=== PATIENT | male | born 1975 | race Caucasian/White ===

== ENCOUNTER 2020-08-06 19:44 | Emergency (ER) | payer OTHER ==
[~2020-08-06] VITALS: Ht 193 cm; Wt 90.7 kg
[~2020-08-06 19:44] MED LIST: OXYACE5T PO; PENVK500 PO; RXOXYACE PO; RXTRAM50 PO; TRAM50 PO
[2020-08-06] MEDS ORDERED: SULTRIDS PO (21:45)
[2020-08-06] MEDS ORDERED: CEPH500 PO (21:45)
[2020-11-15] MEDS ORDERED: IBU600 MG PO (01:49)
== END 2020-08-06 22:00 | disposition home or self-care (01) ==
LOC: ER 19:44
DX: L02.413 Cutaneous abscess of right upper limb (principal); L03.113 Cellulitis of right upper limb; F15.90 Other stimulant use, unspecified, uncomplicated; F17.200 Nicotine dependence, unspecified, uncomplicated
CPT/HCPCS: 10060; 99283-25; A9270

== ENCOUNTER 2021-08-22 15:02 | Emergency (ER) | payer OTHER ==
[~2021-08-22] VITALS: Ht 177.8 cm; Wt 68.0 kg
[~2021-08-22 15:02] MED LIST changes: +CEPH500 PO; +IBU600 MG PO; +SULTRIDS PO
== END 2021-08-22 17:46 | disposition home or self-care (01) ==
LOC: ER 15:02
DX: S01.111A Laceration without foreign body of right eyelid and periocular area, initial encounter (principal); S09.90XA Unspecified injury of head, initial encounter; F15.121 Other stimulant abuse with intoxication delirium; F11.90 Opioid use, unspecified, uncomplicated; F17.200 Nicotine dependence, unspecified, uncomplicated; X58.XXXA Exposure to other specified factors, initial encounter
CPT/HCPCS: 12011; 70450; 99284-25; A9270

== ENCOUNTER 2021-09-04 20:12 | Inpatient (IN) | payer OTHER ==
[~2021-09-04] VITALS: Ht 190.5 cm; Wt 79.2 kg
[2021-09-04 23:48] LABS: BASOPHILS ABSOLUTE AUTO 0.09 K/mm3 (0.00-0.23); BASOPHILS PERCENT AUTO 1 % (0-2); EOSINOPHILS ABSOLUTE AUTO 0.31 K/mm3 (0.00-0.68); EOSINOPHILS PERCENT AUTO 3 % (0-6); Hematocrit 37.6 % (37.0-53.0); IMMATURE GRAN ABSOLUTE AUTO 0.02 K/mm3 (0.00-0.10); IMMATURE GRAN PERCENT AUTO 0 % (0-1); LYMPHOCYTES ABSOLUTE AUTO 3.13 K/mm3 (0.84-5.20); LYMPHOCYTES PERCENT AUTO 30 % (21-46); MONOCYTES ABSOLUTE AUTO 1.56 K/mm3 (0.16-1.47); MONOCYTES PERCENT AUTO 15 % (4-13); Mean Corpuscular HGB 28.9 pg (26.0-34.0); Mean Corpuscular HGB Conc 31.9 g/dL (31.5-36.5); Mean Corpuscular Volume 91 fL (80-100); Mean Platelet Volume 10.9 fL (9.1-12.4); NEUTROPHILS ABSOLUTE AUTO 5.19 K/mm3 (1.96-9.15); NEUTROPHILS PERCENT AUTO 50 % (41-73); Platelet Count 356 K/mm3 (150-400); Red Blood Cell Count 4.15 M/mm3 (4.30-5.90)
[2021-09-04 23:58] LABS: Alanine Aminotransfer (ALT/SGP 46 U/L (12-78); Albumin, Blood 3.5 g/dL (3.4-5.0); Albumin/Globulin Ratio 0.8 (0.8-1.8); Alk Phos 81 U/L (50-136); Anion Gap 5 mmol/L (6-16); Aspartate Aminotrans (AST/SGOT 47 U/L (12-37); Bilirubin, Total 0.2 mg/dL (0.1-1.0); Blood Urea Nitrogen 17 mg/dL (8-24); CO2, Blood 30 mmol/L (21-32); Calcium, Blood 8.9 mg/dL (8.5-10.1); Chloride, Blood 103 mmol/L (98-108); Creatinine, Blood 0.68 mg/dL (0.60-1.20); Globulin, Blood 4.5 g/dL (2.2-4.0); Glomerular Filtration Rate >60 (60-); Glucose, Blood 101 mg/dL (70-99); Potassium, Blood 4.3 mmol/L (3.5-5.5); Sodium, Blood 138 mmol/L (136-145)
--- NOTE | 2021-09-05 02:51 | NUR ---
ADMIT NOTE 0154 PT ARRIVED TO THE FLOOR VIA WHEELCHAIR, TRANSFERS INDEPENDENTLY, AOX4, PLEASEANT AND COOPERATIVE WITH ADDMISSION ASSESSMENT. PT REPORTS HX OF DAILY ETOH, AND POLYSUBSTANCE USE. NOSE WOUND DRAINING PURULENT, FOUL SMELLING DRAINAGE. ORIENTED TO ROOM AND CALL LIGHT, VSS. WILL CONTINUE TO MONITOR.
--- NOTE | 2021-09-05 03:58 | NUR ---
AT BEDSIDE DURING BI ARCHITECT ASSESSMENT. AGREE W/DOCUMENTED ASSESSMENT.
--- NOTE | 2021-09-05 04:38 | NUR ---
SHIFT SUMMARY, PT ARRIVED TO FLOOR 0154, HAS BEEN NPO SINCE ARRIVAL. IV IN R FOREARM, PATENT INFUSING IV FLUIDS AND ABX PER ORDERS. GLEN SANTANA, SARAH PEREIRA CONSULT THIS AM. VSS, CALL LIGHT IN REACH. WILL CONTINUE TO MONITOR.
--- NOTE | 2021-09-05 07:25 | NUR ---
PT VSS SINCE ARRVING TO FLOOR. NOSE DRNG PURULANT DRNG. PT DENIED PAIN. IVF AND ABX COTN PER ORDERS. PT NPO PENDING ENT CONSULT.
--- NOTE | 2021-09-05 08:19 | NUR ---
DR. PEREIRA CAME INTO THE ROOM AND CONFIRMED THAT THE PATIENT WILL BE GOING IN FOR SURGERY AT SOME POINT TODAY. PATIENT IS LAYING IN BED WITH CALL LIGHT WITHIN REACH. AWAITING TO HEAR BACK FROM OR TO SEE WHEN PATIENT WILL HAVE SURGERY.
[2021-09-05 12:57] LABS: Influenza A, PCR NEGATIVE (NEGATIVE); Influenza B, PCR NEGATIVE (NEGATIVE); Resp Syncytial Virus, PCR NEGATIVE (NEGATIVE); SARS-Cov-2 (COVID-19) PCR, MMC NEGATIVE (NEGATIVE)
--- NOTE | 2021-09-05 14:03 | NUR ---
09/05/21 1403 Alfonzo Ibrahim PATIENT ON SCHEDULED ANTIBIOTICS
--- NOTE | 2021-09-05 15:41 | NUR ---
SHIFT SUMMARY: PATIENT CAME BACK FROM PACU TODAY AT 1530. PATIENT IS ALERT AND ORIENTED X4. VS ARE WNL AND IS ON RA. PATIENT REPORTS PAIN 10/10 AND WAS GIVEN 50 MCG IV FENT. PATIENT REPORTS PAIN TO BE "A LITTLE BIT BETTER". PATIENTS NOSE AND EYES ARE SWOLLEN WITH SMALL AMOUNT OF BLOOD COMING OUT OF HIS NARES. PATIENT DENIES ISSUES BREATHING THROUGH NOSE BECAUSE IT REMINDS HIM OF "WHEN YOU DO COCAINE AND YOUR NOSE ON THE INSIDE FEELS RAW". PATIENT IS TOLERATING PO INTAKE AND IS BURPING FREQUENTLY. IV FLUIDS AND ABX RUNNING. CALL LIGHT WITHIN REACH. THE PLAN IS TO HAVE IV ABX FOR A COUPLE OF DAYS AND THEN TO POSSIBLY DISCHARGE HOME.
--- NOTE | 2021-09-05 16:50 | NUR ---
SHIFT SUMMARY - POD 0 FOR I&D OF NASAL ABSCESS PT A0X4. NASAL AREA STILL SWOLLEN, SCABBED AREA OVER BRIDGE OF NOSE, SMALL AMONUT OF BLOOD FROM NARES. MEDICATING FOR PAIN PER EMAR. ABLE TO AMBULATE INDEPENDENTLY. REGULAR DIET, TOLERATING PO INTAKE. CALL LIGHT WITHIN REACH. PLAN IS TO CONTINUE TO ANTIBIOTIC TREATMENT FOR ANOTHER DAY OR TWO AND DISCHARGE HOME.
[2021-09-05 23:58] LABS: Vancomycin, Trough 9.4 ug/mL (5.0-10.0)
--- NOTE | 2021-09-06 04:30 | NUR ---
SHIFT SUMMARY NO ACUTE CHANGES TO REPORT THIS SHIFT. POD O I&D OF NASAL ABCESS, PT HAS HAD MODERATE PAIN. MEDICATED PER EMAR WITH EFFECT. PT HAS SLEPT OFF AND ON T/O THE SHIFT, HE REQUESTS FREQUENT SNACKS FROM THE PANTRY. POST OP VITALS ARE STABLE. PT INDEPENDENT WITH URINAL AT THE BEDSIDE. COOPERATIVE WITH CARE AND CALLS APPROPRIATELY. IV ANTIBIOTICS PER ORDERS. BED IN LOWEST POSITION, CALL LIGHT WITHIN REACH.
--- NOTE | 2021-09-06 05:56 | NUR ---
SPLINT TO LEFT NARE AROUND 0540 PT BEGAN YELLING OUT IN PAIN, STATING THAT HE FELT LIKE HE HAD SOMETHING STUCK IN HIS NOSE. HE WAS MOANING AND VIOLENTLY BLOWING HIS NOSE. I INSTRUCTED PT NOT TO BLOW AND TOLD HIM THAT WOULD MAKE SITUATION WORSE. I ASSESSED PT LEFT NARE TO SEE SPLINT HAD MOVED FOWARD TO WHERE IT WAS QUITE VISIBLE. NO BLEEDING PRESENT. PRIOR TO TO THIS EPISODE PT WAS SNEEZING VIGOROUSLY IN HIS ROOM, WHICH MAY HAVE MOVED SPINT FOWARD. PT MEDICATED FOR PAIN AND ANXIETY. CALLED AND LEFT MESSAGE WITH DR. PEREIRA'S ANSWERING SERVICE TO NOTIFY HIM OF INCIDENT. DR. PEREIRA HAS CALLED BACK AND STATES THAT HE HAS A SURGERY HERE AT THE HOSPITAL TODAY AND THAT HE WILL ROUND ON PT LATER THIS AM. HE GAVE NO FURTHER INSTRUCTION AND STATES TO LEAVE SPLINT IS FOR NOW.
--- NOTE | 2021-09-06 06:16 | NUR ---
PRIMARY RN REPORTS THAT SPLINTS IN PT'S NOSE HAVE SHIFTED DOWN AND ARE MORE VISIBLE NOW. DR PEREIRA CONTACTED, NOTIFIED OF VISIBLE SPLINTS. DR PLANS TO ROUND THIS AM, NO NEW ORDERS AT THIS TIME. PRIMARY RN UPDATED.
--- NOTE | 2021-09-06 16:55 | NUR ---
SHIFT SUMMARY - POD 1 FOR I&D OF NASAL ABSCESS PT IS A0X4. NASAL/EYE AREA STILL SWOLLEN. MEDICATING FOR PAIN PER EMAR. USING THE BEDSIDE URINAL, BUT ABLE TO AMBULATE INDEPENDENTLY. TOLERATING PO INTAKE, ASKS FOR DOUBLE TRAY PORTIONS AND FREQUENT SNACKS. USES CALL LIGHT APPROPRIATELY, CALL LIGHT WITHIN REACH. PLAN IS TO CONTINUE ANTIBIOTICS FOR ANOTHER DAY AND THEN POSSIBLY DISCHARGE HOME.
--- NOTE | 2021-09-06 18:06 | NUR ---
SHIFT SUMMMARY: POD 1 I&D OF NOSE NO SIGNIFICANT CHANGES. PAIN IS MANAGED WITH IV FENT, TORADOL, AND ATIVAN. PATIENT IS TOLERATING PO INTAKE AND IS VOIDING. HE DID HAVE A SMALL BM YESTERDAY. PATIENT USES URNAL AT BEDSIDE. PATIENT IS STILL RECIEVING IV ABX BUT IS SALINE LOCKED AFTER FLUSHING. CALLS APPROPRIATELY. CALL LIGHT WITHIN REACH. PATIENTS NOSE HAS SPLINTS INSIDE AND HAS SMALL AMOUNT OF BLOODY DRAINAGE COMING OUT INTERMITTENTLY. HE IS ABLE TO BREATHE THROUGH HIS NOSE WITH NO ISSUE. PATIENT CAN BECOME ANXIOUS AT TIMES WHEN HIS PAIN IS TOO HIGH AND WILL INTERMITTENTLY BURST WITH MOANS AND YELLING. PATIENT IS CALMED DOWN WITH IV PAIN MEDS AND/OR FOOD. THE PLAN IS TO CONTINUE IV ABX AND PAIN MANAGEMENT.
--- NOTE | 2021-09-06 20:38 | NUR ---
REFUSING CARE PT REFUSED TO HAVE HIS HS BLOOD SUGAR TAKEN. PT IS OCCASIONALLY INCONTINENT, HE STATES THAT HE IS DRY AND DOES NOT NEED TO BE CHANGED AT THIS TIME.
[2021-09-06 23:57] LABS: Vancomycin, Trough 11.3 ug/mL (5.0-10.0)
--- NOTE | 2021-09-07 04:17 | NUR ---
SHIFT SUMMARY PT HAS DONE MUCH BETTER OVERNIGHT, PAIN IS ALOT MORE CONTROLLED AND PT HAS SLEPT MOST OF THE NIGHT. SPINT TO BOTH NARES INTACT WITHOUT CHANGES OVERNIGHT. IV ANTIBIOTICS INFUSED ORDERED. PT PLESANT AND COOPERATIVE WITH CARE. BED IN LOWEST POSITION, CALL LIGHT WITHIN REACH/
[2021-09-07 04:47] LABS: BASOPHILS ABSOLUTE AUTO 0.02 K/mm3 (0.00-0.23); BASOPHILS PERCENT AUTO 0 % (0-2); EOSINOPHILS PERCENT AUTO 0 % (0-6); Hematocrit 37.3 % (37.0-53.0); IMMATURE GRAN ABSOLUTE AUTO 0.05 K/mm3 (0.00-0.10); IMMATURE GRAN PERCENT AUTO 0 % (0-1); LYMPHOCYTES ABSOLUTE AUTO 1.41 K/mm3 (0.84-5.20); LYMPHOCYTES PERCENT AUTO 11 % (21-46); MONOCYTES ABSOLUTE AUTO 0.49 K/mm3 (0.16-1.47); MONOCYTES PERCENT AUTO 4 % (4-13); Mean Corpuscular HGB 28.6 pg (26.0-34.0); Mean Corpuscular HGB Conc 32.2 g/dL (31.5-36.5); Mean Corpuscular Volume 89 fL (80-100); Mean Platelet Volume 10.2 fL (9.1-12.4); NEUTROPHILS ABSOLUTE AUTO 11.09 K/mm3 (1.96-9.15); NEUTROPHILS PERCENT AUTO 85 % (41-73); Platelet Count 384 K/mm3 (150-400); RDW Coefficient Variation 12.7 % (11.7-14.2); RDW Standard Deviation 41.5 fL (35.1-46.3); Red Blood Cell Count 4.19 M/mm3 (4.30-5.90); White Blood Cell Count 13.06 K/mm3 (4.00-11.30)
[2021-09-07 05:14] LABS: Anion Gap 8 mmol/L (6-16); Blood Urea Nitrogen 19 mg/dL (8-24); Bun/Creatinine Ratio 26.3 (12.0-20.0); CO2, Blood 25 mmol/L (21-32); Calcium, Blood 8.8 mg/dL (8.5-10.1); Chloride, Blood 105 mmol/L (98-108); Creatinine, Blood 0.72 mg/dL (0.60-1.20); Glomerular Filtration Rate >60 (60-); Glucose, Blood 149 mg/dL (70-99); Potassium, Blood 4.2 mmol/L (3.5-5.5); Sodium, Blood 138 mmol/L (136-145)
[2021-09-07] MEDS ORDERED: AMOCLA875 PO (15:59)
[2021-09-07] MEDS ORDERED: Acetaminophen650 M1 PO (15:59)
--- NOTE | 2021-09-07 16:00 | NUR ---
DR PEREIRA IN TO ROOM TO REMOVE NASAL SPLINTS. PT WILL DC WITHOUT THEM. PT WILL FU WITH DR PEREIRA IN 1 WEEK.
[2021-09-07] MEDS ORDERED: ACIDOPHILUS1 EAC3 PO (16:01)
[2021-09-07] MEDS ORDERED: NASAL SPRAY88 ML (16:01)
--- NOTE | 2021-09-07 16:55 | NUR ---
DISCHARGE SUMMARY PT A&OX4, VSS/RA, JUANJO PO, VOIDING WELL/BMS TODAY, AMB INDEPENDENTLY IN ROOM, PAIN MANAGED. DC INS PROVIDED. PT REP UNDERSTANDING THOSE INSTRUCTIONS INCLUDING FU APPT WITH DR PEREIRA, AND TO POWER SAW OPERATOR ABX/OTHER SCRIPTS AT [facility] [place]. IV DC'D. I WALKED OUT WITH PT TO MEET HIS SISTERS AT THE FRONT ENTRANCE.
== END 2021-09-07 16:39 | disposition home or self-care (01) | DRG 156 ==
LOC: ER 20:12 → SURS 09-05 00:13 → MEDS 09-05 00:13 → SURS 09-05 02:32
PROVIDERS: Internal Medicine; Otolaryngology; Physician Assistant; ADMIT Internal Medicine
PROC: 099M0ZZ Drainage of Nasal Septum, Open Approach (ICD-10-PCS; principal; 2021-09-05 13:30)
DX: J34.0 Abscess, furuncle and carbuncle of nose (principal); F10.10 Alcohol abuse, uncomplicated; F15.10 Other stimulant abuse, uncomplicated; F17.210 Nicotine dependence, cigarettes, uncomplicated; S02.2XXA Fracture of nasal bones, initial encounter for closed fracture; D64.9 Anemia, unspecified; Z20.822 Contact with and (suspected) exposure to COVID-19; Z98.890 Other specified postprocedural states; W22.8XXA Striking against or struck by other objects, initial encounter
CPT/HCPCS: 0241U; 36415; 70487; 80048; 80053; 80202; 85025; 87040; 93306; 99284-25; A9270; J0171; J0295; J0330; J1100; J1885; J2060; J2250; J2405; J2543; J2704; J3010; J3370; J7030; J7040; J7050; J7060; J7120; Q9967

== ENCOUNTER 2022-05-04 13:29 | Inpatient (IN) | payer OTHER ==
[~2022-05-04] VITALS: Ht 193 cm; Wt 69.2 kg
[~2022-05-04 13:29] MED LIST changes: +ACIDOPHILUS1 EAC3 PO; +AMOCLA875 PO; +Acetaminophen650 M1 PO; +NASAL SPRAY88 ML
[2022-05-04 15:11] LABS: Hematocrit 37.1 % (37.0-53.0); Hemoglobin 13.6 g/dL (13.5-17.5); Mean Corpuscular HGB 29.4 pg (26.0-34.0); Mean Corpuscular HGB Conc 36.7 g/dL (31.5-36.5); Mean Corpuscular Volume 80 fL (80-100); Mean Platelet Volume 10.9 fL (9.1-12.4); Platelet Count 354 K/mm3 (150-400); RDW Coefficient Variation 12.5 % (11.7-14.2); RDW Standard Deviation 35.8 fL (35.1-46.3); Red Blood Cell Count 4.63 M/mm3 (4.30-5.90); White Blood Cell Count 25.24 K/mm3 (4.00-11.30)
[2022-05-04 15:49] LABS: BAND PERCENT MAN 19 % (0-8); BASOPHILS PERCENT MAN 0 % (0-2); EOSINOPHILS PERCENT MAN 0 % (0-6); LYMPHOCYTES % ATYPICAL MANUAL 1 % (0-0); LYMPHOCYTES PERCENT MAN 3 % (21-46); MONOCYTES ABSOLUTE MAN 1.26 K/mm3 (0.16-1.47); MONOCYTES PERCENT MAN 5 % (4-13); NEUTROPHILS ABSOLUTE MAN 22.96 K/mm3 (1.96-9.15); SEG NEUTROPHILS PERCENT MAN 72 % (41-73); TOTAL CELLS COUNTED 100
[2022-05-04 15:51] LABS: Albumin/Globulin Ratio 0.5 (0.8-1.8); Bilirubin, Total 0.9 mg/dL (0.1-1.0); Creatinine, Blood 2.12 mg/dL (0.60-1.20); Globulin, Blood 5.9 g/dL (2.2-4.0); Potassium, Blood 5.2 mmol/L (3.5-5.5); Total Protein, Blood 8.9 g/dL (6.4-8.2)
--- NOTE | 2022-05-04 18:18 | NUR ---
PT ARRIVED TO PCU AT 1820 VIA GURNEY. PT SLID FROM [facility] TO PCU BED VIA SLIDE SHEET AND 3 STAFF MEMBERS. PT SLEEPING UPON ARRIVAL AND ONLY ABLE TO AWAKEN BRIEFLY WHEN ASKED QUESTIONIS. PT ON RA UPON ARRIVAL.
[2022-05-04 20:59] LABS: Bun/Creatinine Ratio 56.1 (12.0-20.0); Calcium, Blood 8.3 mg/dL (8.5-10.1); Creatinine, Blood 1.96 mg/dL (0.60-1.20); Potassium, Blood 5.1 mmol/L (3.5-5.5)
[2022-05-05 01:02] LABS: Bun/Creatinine Ratio 65.8 (12.0-20.0); Calcium, Blood 8.6 mg/dL (8.5-10.1); Creatinine, Blood 1.58 mg/dL (0.60-1.20); Potassium, Blood 4.5 mmol/L (3.5-5.5)
[2022-05-05 04:50] LABS: BASOPHILS ABSOLUTE AUTO 0.05 K/mm3 (0.00-0.23); BASOPHILS PERCENT AUTO 0 % (0-2); EOSINOPHILS ABSOLUTE AUTO 0.02 K/mm3 (0.00-0.68); EOSINOPHILS PERCENT AUTO 0 % (0-6); Hematocrit 35.9 % (37.0-53.0); Hemoglobin 13.1 g/dL (13.5-17.5); IMMATURE GRAN ABSOLUTE AUTO 0.12 K/mm3 (0.00-0.10); IMMATURE GRAN PERCENT AUTO 1 % (0-1); LYMPHOCYTES ABSOLUTE AUTO 0.97 K/mm3 (0.84-5.20); LYMPHOCYTES PERCENT AUTO 5 % (21-46); MONOCYTES ABSOLUTE AUTO 1.19 K/mm3 (0.16-1.47); MONOCYTES PERCENT AUTO 6 % (4-13); Mean Corpuscular HGB 29.4 pg (26.0-34.0); Mean Corpuscular HGB Conc 36.5 g/dL (31.5-36.5); Mean Corpuscular Volume 81 fL (80-100); Mean Platelet Volume 10.8 fL (9.1-12.4); NEUTROPHILS ABSOLUTE AUTO 16.45 K/mm3 (1.96-9.15); NEUTROPHILS PERCENT AUTO 88 % (41-73); Platelet Count 299 K/mm3 (150-400); RDW Coefficient Variation 12.6 % (11.7-14.2); RDW Standard Deviation 36.5 fL (35.1-46.3); Red Blood Cell Count 4.46 M/mm3 (4.30-5.90)
--- NOTE | 2022-05-05 06:09 | NUR ---
SHIFT SUMMARY PATIENT WAKES TO VERBAL STIMULI BUT QUICKLY FALLS ASLEEP AFTER OPENING EYES. PATIENT SLEPT ENTIRE NIGHT, WAKING ONLY TO USE URINAL. VSS, PATIENT REMAINS ON RA WITH O2 SAT >90%. PATIENT TURNS SELF IN BED INDEPDENTLY. NS INFUSING PER EMAR. NO OTHER CHANGES, WILL REPORT TO DAY SHIFT RN.
[2022-05-05 07:03] LABS: Albumin, Blood 2.6 g/dL (3.4-5.0); Albumin/Globulin Ratio 0.5 (0.8-1.8); Bun/Creatinine Ratio 76.2 (12.0-20.0); Calcium, Blood 8.6 mg/dL (8.5-10.1); Creatinine, Blood 1.26 mg/dL (0.60-1.20); Globulin, Blood 5.4 g/dL (2.2-4.0); Magnesium, Blood 3.1 mg/dL (1.6-2.4); Potassium, Blood 4.3 mmol/L (3.5-5.5)
[2022-05-05 09:55] LABS: Bun/Creatinine Ratio 80.6 (12.0-20.0); Calcium, Blood 8.7 mg/dL (8.5-10.1); Creatinine, Blood 1.03 mg/dL (0.60-1.20); Potassium, Blood 4.3 mmol/L (3.5-5.5)
--- NOTE | 2022-05-05 10:39 | NUR ---
UPDATE PT FELL ASLEEP DURING ULTRASOUND. MORNING MEDS HELD DUE TO PT SLEEPING DUE TO WITHDRAWALS. PT CURRENTLY SLEEPING. BED IN LOWEST POSITION. CALL LIGHT WITHIN REACH. URINAL AT BEDSIDE.
--- NOTE | 2022-05-05 11:49 | NUR ---
DURING MORNING VITALS, ROUGHLY 0745, PT WAS AWAKE AND ANSWERING SOME QUESTIONS. PT EMOTIONS VERY LABILE. PT APPEARED TO BECOME FRUSTRATED WITH RETAIL SALES DIRECTOR AND BUSINESS STRATEGY MANAGER OVER THE FACT THAT THE PT WAS NPO BUT WANTED FOOD. PT WAS INFORMED THAT HE WAS CURRENTLY NPO BUT THE RN WAS GOING TO CALL THE DR TO SEE IF A DIET COULD BE ORDERD. PT WAS MOANING AND YELLING OUT "I NEED WATER. MY MOUTH IS SO DRY." THIS RN BROUGHOUT PT A SMALL CUP OF WATER TO ASSESS PT SWALLOWING. PT INSTRUCTED TO TAKE SMALL SIPS. PT DID NOT FOLLOW INSTRUCTIONS AND DRANK ENTIRE CUP. PT SWALLOWING APPEARED TO BE GOOD AND NO COUGHING NOTICED. DR INFORMED ND DIET CHANGED TO REG DIET. PT AGAIN BECAME FRUSTRATED WITH BUSINESS STRATEGY MANAGER BECAUSE PT ASKED FOR SOMETHING TO DRINK AND BUSINESS STRATEGY MANAGER STATED THAT SHE WOULD ASK THE NURSE. PT BEGAN MOANING LOUDLY AND ASKED FOR HIS NURSE. THIS RN ENTERED ROOM, PT ASKED WHY HE COULD NOT HAVE ANYTHING TO DRINK. THIS RN INFORMED PT THAT HIS BEHAVIOR WAS NOT APPROPIATE AND THAT HE COULD NOT GET FRUSTRATED WITH STAFF BECAUSE HE IS NOT GETTING THINGS RIGHT AWAY. THIS RN INFORMED PT THAT BUSINESS STRATEGY MANAGER AND RETAIL SALES DIRECTOR WILL COME TO ME WITH REQUESTS AND THAT I I HAVE TO FOLLOW THE DR ORDERS. PT APPOLIGIZED AND AGREED TO NOT GET FRUSTRATED WITH STAFF.
[2022-05-05 13:11] LABS: Bun/Creatinine Ratio 74.4 (12.0-20.0); Calcium, Blood 8.4 mg/dL (8.5-10.1); Creatinine, Blood 0.93 mg/dL (0.60-1.20); Potassium, Blood 4.3 mmol/L (3.5-5.5)
--- NOTE | 2022-05-05 17:48 | NUR ---
SHIFT SUMMARY PT SLEPT MUTIPLE TIMES DURING SHIFT. WHEN PT WAS AWAKE, PT IS A/O. PT ABLE TO GIVE HIS NAME, , NAME OF FACILITY, AND NAME OF CITY. PT EMOTIONS ARE VERY LABILE WHEN AWAKE, BECOMES FRUSTRATED QUICKLY. PT CONSTANTLY REQUESTING FOOD AND DRINKS WHEN AWAKE. PT VSS THROUGHOUT SHIFT, O2 SATS NOT ALWAY OBTAINABLE. NO REPORT OF CHEST PAIN/PRESSURE THROUGHOUT SHIFT. NO REPORT OF SOB/DYSPNEA THROUGHOUT SHIFT. PT UNABLE TO SIT STILL FOR VERY LONG WHEN AWAKE. ATIVAN ORDERED Q4 FOR WITHDRAWL SYMPTOMS, 1 MG GIVEN THIS EVENING, SEE EMAR. PT USING URINAL WHILE IN BED. BED ALARM ON.
--- NOTE | 2022-05-05 18:15 | NUR ---
AT 1750, PT ASKED FOR PAIN MED. WHEN ASSESSED WHERE HIS PAIN WAS AND PAIN LEVEL, PT FLAILED HIS ARM ABOVE HEAD AND YELLED "I JUST NEED SOMETHING TO TAKE THE EDGE OFF." PT INFORMED THAT HE HAS TYLENOL FOR PAIN, PT RESPONDED "THAT WON'T WORK." PT BEGAN ROCKING IN HIS BED AND MOANING. PT INFORMED THAT ATIVAN MY HELP HIM RELAX A LITTLE. PT RESPOND "YES. YES PLEASE." ATIVAN GIVEN PER EMAR.
[2022-05-06 03:51] LABS: Hematocrit 36.1 % (37.0-53.0); Hemoglobin 12.5 g/dL (13.5-17.5); Mean Corpuscular HGB Conc 34.6 g/dL (31.5-36.5); Mean Corpuscular Volume 84 fL (80-100); Mean Platelet Volume 10.4 fL (9.1-12.4); Platelet Count 279 K/mm3 (150-400); RDW Standard Deviation 39.3 fL (35.1-46.3); Red Blood Cell Count 4.31 M/mm3 (4.30-5.90); White Blood Cell Count 15.25 K/mm3 (4.00-11.30)
[2022-05-06 04:09] LABS: Albumin, Blood 2.4 g/dL (3.4-5.0); Anion Gap 8 mmol/L (6-16); Blood Urea Nitrogen 51 mg/dL (8-24); Bun/Creatinine Ratio 59.8 (12.0-20.0); CO2, Blood 25 mmol/L (21-32); Calcium, Blood 8.7 mg/dL (8.5-10.1); Chloride, Blood 94 mmol/L (98-108); Creatinine, Blood 0.85 mg/dL (0.60-1.20); Glomerular Filtration Rate 109 (60-); Glucose, Blood 105 mg/dL (70-99); Phosphorus, Blood 1.8 mg/dL (2.5-4.9); Sodium, Blood 127 mmol/L (136-145)
--- NOTE | 2022-05-06 06:13 | NUR ---
SHIFT SUMMARY PATIENT WAKES EASILY TO VERBAL STIMULI, ANSWERS ORIENTATION QUESTIONS APPROPRIATLEY WHEN AWAKE. VSS, PATIENT REMAINS ON RA WITH O2 SAT >90%. MEDICATED PER EMAR FOR AGITATION AND ANXIETY RELATED TO WITHDRAWAL SYMPTOMS. PATIENT ABLE TO TURN SELF IN BED. USES URINAL IN BED INDEPENDENTLY WITH ADEQUATE OUTPUT. TOLERATING PO. NO OTHER CHANGES THIS SHIFT, WILL REPORT TO DAY SHIFT RN.
--- NOTE | 2022-05-06 17:19 | NUR ---
SHIFT SUMMARY PT HAS BEEN SLEEPING FOR A MAJORITY OF THE DAY. ON MULTIPLE INSTANCES, THE PT WOULD WAKE UP AND CRY OUT ONLY TO BE ASLEEP AGAIN WHEN THIS RN ARRIVED IN ROOM. PT STATED "I HURT ALL OVER" BUT WOULD NOT CLARIFY ON QUALITY, SPECIFIC LOCATION(S) OF PAIN, OR RATE PAIN 1-10. A TEMPERATURE OF 100.7 WAS MEASURED IN THE AFTERNOON WHICH WAS TREATED WITH ACETAMINOPHEN PER EMAR. PT DID DEMONSTRATE SIGNS OF ANXIETY DURING ENCOUNTERS WHILE AWAKE, THEY CONTINUALLY MADE COMMENTS SUCH "PLEASE DON'T KICK ME OUT. I HOPE THAT YOU'RE NOT MAKING ME LEAVE." ETC.
[2022-05-07 04:35] LABS: Hematocrit 36.3 % (37.0-53.0); Hemoglobin 12.5 g/dL (13.5-17.5); Mean Corpuscular HGB 29.2 pg (26.0-34.0); Mean Corpuscular HGB Conc 34.4 g/dL (31.5-36.5); Mean Corpuscular Volume 85 fL (80-100); Mean Platelet Volume 10.3 fL (9.1-12.4); Platelet Count 297 K/mm3 (150-400); RDW Coefficient Variation 13.2 % (11.7-14.2); RDW Standard Deviation 39.9 fL (35.1-46.3); Red Blood Cell Count 4.28 M/mm3 (4.30-5.90); White Blood Cell Count 16.25 K/mm3 (4.00-11.30)
[2022-05-07 04:51] LABS: Albumin, Blood 2.2 g/dL (3.4-5.0); Anion Gap 7 mmol/L (6-16); Blood Urea Nitrogen 21 mg/dL (8-24); CO2, Blood 25 mmol/L (21-32); Calcium, Blood 8.7 mg/dL (8.5-10.1); Chloride, Blood 96 mmol/L (98-108); Creatinine, Blood 0.58 mg/dL (0.60-1.20); Glomerular Filtration Rate 122 (60-); Glucose, Blood 105 mg/dL (70-99); Phosphorus, Blood 1.9 mg/dL (2.5-4.9); Potassium, Blood 4.9 mmol/L (3.5-5.5); Sodium, Blood 128 mmol/L (136-145)
--- NOTE | 2022-05-07 06:14 | NUR ---
SHIFT SUMMARY MEDICAL NO TELE STATUS PATIENT ALERT AND ORIENTED, ABLE TO MAKE NEEDS KNOWN TO STAFF, AGITATES EASILY. PATIENT TOLERATING PO, CONTINUES TO REQUEST FOOD/DRINKS AND GETS UPSET WITH STAFF, YELLING OUT AND USES INAPPROPRIATE LANGUAGE WHEN CERTAIN FOOD/DRINK ITEMS ARE NOT AVAILABLE. MEDICATED PER EMAR FOR WITHDRAWAL SYMPTOMS AND ANXIETY. VSS, PATIENT REMAINS ON RA T/O NIGHT WITH 02 SAT >90%. PATIENT USING URINAL IN BED INDEPENDENTLY. NO OTHER CHANGES THIS SHIFT, WILL REPORT TO DAY SHIFT RN.
[2022-05-07 11:45] LABS: Source, Urine Clean Catch
[2022-05-07 11:52] LABS: Bilirubin, Urine Neg (Neg); Blood, Urine 2+ (Neg); Glucose Qualitative, Urine 1+ (Neg); Ketones, Urine Neg (Neg); Leukocyte Esterase, Urine 1+ (Neg); Nitrite, Urine Neg (Neg); Protein, Urine 2+ (Neg); Specific Gravity, Urine 1.005 (1.003-1.022); Urobilinogen, Urine 2+ (Normal)
[2022-05-07 12:00] LABS: Appearance, Urine Hazy (Clear); Color, Urine Yellow (P-Yellow)
[2022-05-07 12:02] LABS: Bacteria Rare /hpf; Squamous Epithelial Cells Few /hpf (Few)
--- NOTE | 2022-05-07 17:55 | NUR ---
SHIFT SUMMARY PT SPENT A MAJORITY OF THE DAY SLEEPING OFF AND ON IN BED. RIGHT ANTECUBITAL AC WAS NOT PATENT ON ASSESSMENT AND A NEW PERIPHERAL IV WAS PLACED IN THE LEFT AC. PT WAS RELUCTANT FOR ALL CARE. PT FREQUENTLY CALLED OUT AND ASKED FOR FOOD OR BEVERAGE FREQUENTLY, THEY WERE ACCOMMODATED OFTEN POSSIBLE. PT C/O GENERALIZED PAIN AND DIFFICULTY BREATHING ON MULTIPLE OCCASIONS. PT WOULD NOT PROVIDE QUALITY OR OTHER SPECIFICS OF PAIN. PT DEMONSTRATED A MODERATE LEVEL OF ANXIETY THROUGHOUT THE DAY. PT STATED THAT THEY ARE "AFRAID OF GETTING KICKED OUT." PT WAS RESISTANT TO TAKING A SHOWER BUT ACQUIESCED AND COMPLIED WITH INSTRUCTION FROM THIS RN AND LEGAL COLLECTOR FOR BATHING. ALL VITAL SIGNS STABLE.
[2022-05-08 04:36] LABS: Hematocrit 34.9 % (37.0-53.0); Hemoglobin 11.9 g/dL (13.5-17.5); Mean Corpuscular HGB Conc 34.1 g/dL (31.5-36.5); Mean Corpuscular Volume 85 fL (80-100); Mean Platelet Volume 9.7 fL (9.1-12.4); Platelet Count 345 K/mm3 (150-400); RDW Coefficient Variation 13.6 % (11.7-14.2); RDW Standard Deviation 41.6 fL (35.1-46.3); Red Blood Cell Count 4.11 M/mm3 (4.30-5.90); White Blood Cell Count 17.41 K/mm3 (4.00-11.30)
[2022-05-08 04:54] LABS: Albumin, Blood 2.1 g/dL (3.4-5.0); Anion Gap 7 mmol/L (6-16); Blood Urea Nitrogen 19 mg/dL (8-24); Bun/Creatinine Ratio 31.5 (12.0-20.0); CO2, Blood 25 mmol/L (21-32); Calcium, Blood 8.5 mg/dL (8.5-10.1); Chloride, Blood 98 mmol/L (98-108); Glomerular Filtration Rate 121 (60-); Glucose, Blood 108 mg/dL (70-99); Phosphorus, Blood 2.7 mg/dL (2.5-4.9); Potassium, Blood 4.8 mmol/L (3.5-5.5); Sodium, Blood 130 mmol/L (136-145)
--- NOTE | 2022-05-08 07:12 | NUR ---
SHIFT SUMMARY MED NO TELE STATUS PATIENT ALERT AND ORIENTED, VSS, TMAX 100.9 OVERNIGHT, MEDICATED PER EMAR WITH TYLENOL. REMAINS ON RA WITH 02 SAT >90%. PATIENT AGITATES EASILY. CONTINUES TO USE VULGAR LANGUAGE AT STAFF WHEN FOOD/DRINKS ARE UNAVAILABLE. USING URINAL INDEPENDENTLY WITH ADEQUATE OUTPUT. NO OTHER CHANGES, WILL REPORT TO DAY SHIFT RN.
--- NOTE | 2022-05-08 16:30 | NUR ---
LATE ENTRY 1520: RECEIVED REPORT FROM RICHARD TALLEY. 1600: RECEIVED PT FROM PCU VIA W/C, PLACED HIMSELF INTO BED, MADE COMFORTABLE, ORIENTED TO ROOM AND UNIT ROUTINE. CALL LIGHT MADE ACCESSIBLE. PT REQUESTED WATER, SOFT DRINK & OJ. PROVIDED REQUESTED DRINKS TO HIM. PIV IN L AC INTACT & PATENT. POWER GLIDE IN L UPPER ARM INTACT & PATENT, SEEMS TO BE SOMEWHAT POSITIONAL. PT A&O X 4.
--- NOTE | 2022-05-08 17:42 | NUR ---
SHIFT SUMMARY NO CHANGES SINCE TRANSFER FROM [facility].
--- NOTE | 2022-05-09 03:30 | NUR ---
RETAIL INTERIOR DESIGNER SUMMARY AWAKE AT INTERVALS. OCCASIONAL CALLING OUT WITH FOUL WORDS, POSSIBLE TOURETTES. IV ANTIBIOTICS INFUSING ORDERED, SEE MAR FOR DETAILS. REQUESTS FOR MULTIPLE SNACKS. VOIDING QS. UP AD MARIA ALEJANDRA. VOICED SOME DISCOLORATION OF TOES OF LEFT FOOT. PIC TAKEN, WILL ASKE AM SHIFT TO FOLLOW UP WITH . JAVIERLTJESUS RESTING QUIETLY. CALL LIGHT IN REACH. WILL CONTINUE TO MONITOR
[2022-05-09 05:03] LABS: Vancomycin, Trough 11.4 ug/mL (5.0-10.0)
--- NOTE | 2022-05-09 16:48 | NUR ---
LATE ENTRY CP AT 1305 PT C/O CP WITH DEEP BREATHING. PT DENIES CHEST PRESSURE AND NUMBNESS TO ARMS/JAW AND REPORTS NO PAIN IN JAW. VITALS WNL OF PT'S RECENT VITALS. THIS RN CALLED DR. NAPOLES AND DISCUSSED PT'S SYMPTOMS AND VITALS. DR. NAPOLES ORDERED TRAMADOL FOR PAIN AND REPORTS PAIN DUE TO PROBABLE PNEUMONIA. NO FURTHER ORDERS. CALL LIGHT IN REACH.
--- NOTE | 2022-05-09 18:28 | NUR ---
SHIFT SUMMARY: PT WAS WELL BEHAVED THIS SHIFT. AAOX4. PT REFUSED HIS SECOND BLOOD CULTURE BOTTLE, SO SECOND CULTURE WAS TAKEN FROM THE SAME SITE (POWER GLIDE). PT HAD AN EPISODE OF CHEST PAIN THIS SHIFT UPON INHALING. PT GIVEN TRAMADOL. TRAMADOL HELPED TO BRING PAIN LEVEL TO AN ACCEPTABLE LEVEL. PT WAS OTHERWISE CALM AND COOPERATIVE THIS SHIFT.
[2022-05-10 04:52] LABS: Hematocrit 33.2 % (37.0-53.0); Hemoglobin 11.6 g/dL (13.5-17.5); Mean Corpuscular HGB 29.4 pg (26.0-34.0); Mean Corpuscular HGB Conc 34.9 g/dL (31.5-36.5); Mean Corpuscular Volume 84 fL (80-100); Mean Platelet Volume 9.5 fL (9.1-12.4); Platelet Count 425 K/mm3 (150-400); RDW Coefficient Variation 13.5 % (11.7-14.2); RDW Standard Deviation 41.8 fL (35.1-46.3); Red Blood Cell Count 3.95 M/mm3 (4.30-5.90); White Blood Cell Count 10.28 K/mm3 (4.00-11.30)
--- NOTE | 2022-05-10 04:53 | NUR ---
SHIFT SUMMARY PATIENT IS ALERT AND ORIENTED. PATIENT HAS BEEN PLEASENT AND COOPERATIVE WITH CARE. PATIENTS POWERGLIDE DID NOT DRAW. PATIENT ABX INFUSED W/O INCIDENT. PATIENT HAS NOT COMPLAINED OF SOB, NAUSEA, VOMITTING. PATIENT HAS COMPLAINED OF CHEST PAIN, MEDICATED WITH TRAMADOL WITH SUCCESS. PATIENT HAS HAD NO OTHER ACUTE EVENTS THIS SHIFT. VITAL SIGNS REVIEWED. BED IN LOCKED AND LOWEST POSITION. CALL LIGHT IN PLACE. WILL MONITOR UNTIL SHIFT CHANGE.
[2022-05-10 05:15] LABS: Anion Gap 3 mmol/L (6-16); Blood Urea Nitrogen 17 mg/dL (8-24); CO2, Blood 23 mmol/L (21-32); Calcium, Blood 8.5 mg/dL (8.5-10.1); Chloride, Blood 104 mmol/L (98-108); Creatinine, Blood 0.53 mg/dL (0.60-1.20); Glomerular Filtration Rate 125 (60-); Glucose, Blood 91 mg/dL (70-99); Potassium, Blood 4.3 mmol/L (3.5-5.5); Sodium, Blood 130 mmol/L (136-145)
--- NOTE | 2022-05-10 18:18 | NUR ---
SHIFT SUMMARY: PT WAS CALM AND COOPERATIVE TODAY. BLOOD CULTURE RESULTS WERE + FOR STAPH. PLAN IS TO PLACE PT IN A SNF FOR X2 WEEKS ABO. . SNF EXPLAINED TO PT. PT AGREED. ECHO ORDERED FOR PT. WAITING FOR RESULTS. PAIN WELL CONTROLLED WITH TRAMADOL THIS SHIFT. PT WAS SHOWERED THIS SHIFT. X1 WITH NURSE ASSIST.
--- NOTE | 2022-05-11 01:33 | NUR ---
SEVERE ANXIETY I ENTERED PT ROOM TO ADMINISTER NOC IV ABX AND WOKE PT UP WHO HAD BEEN HAVING INSOMNIA. PT HAD A SEVERE EPISODE OF ANXIETY. GAVE PRN ATIVAN PER HUGH SCHWAB CHARGE NURSE TA MOSS BEFORE ADMINISTRATION BECAUSE THE ORDER IS FOR WITHDRAWAL SYMPTOMS.
--- NOTE | 2022-05-11 04:43 | NUR ---
Shif Summary Pt rcving IV ABX for staph+ blood cultures, also rcvd PRN Tramadol for chest pain related to pneumonia. Refused heparin, states he is afread of needles. Worse SCD during the start of shift, requesting they be removed around 0000 so he could sleep. Had severe anxiety attack, given PRN Ativan, see previous nursing note. After rcving Ativan pt slept well t/o the night. No acute events, VSS. Awaiting placment into SNF to finish coarse of IV ABX.
[2022-05-11 14:09] LABS: HBSAG SCREEN Negative (Negative); HCV AB >11.0 (0.0-0.9); HCV LOG10 4.401 (.); HEP A AB, IGM Negative (Negative); HEP B CORE AB, IGM Negative (Negative); HEPATITIS C QUANTITATION 25200 IU/mL (.)
--- NOTE | 2022-05-11 17:35 | NUR ---
ALERT AND ORIENTED X4, MAKES NEEDS KNOWN, MEDICATED WITH ANTIBIOTICS/ANXIETY/PAIN MEDS PER EMAR. KIDS VISITED TODAY, BM TODAY PATIENT REPORTED, WBC WAS 17 NOW 10. NO ACUTE CHANGES, LS COURSE, WEAK COUGH, CLEARS CONGESTION. INDEPENDENT IN ROOM, CALL LIGHT WITH IN REACH, WILL RELAY TO PM RN
--- NOTE | 2022-05-12 05:22 | NUR ---
Shift Summary Pt AOx4, independent in room. Pt requested Ativan again to help sleep, order was for withdrawals. Spoke to Dr. Reina who D/C the Ativan and ordered Hydroxyzine PRN for anxiety. Pt C/O chest pain throughout the night, gave PRN medications per emar and a heating pad which pt stated helped. Pt awake most of the night. Refused Heparine but did wear SCDs for a few hours. Pt can get frustrated easily but does calm down. No acute events, VSS, awaiting SNF placment to finish coarse of IV ABX.
[2022-05-12 05:47] LABS: Hematocrit 34.7 % (37.0-53.0); Hemoglobin 11.8 g/dL (13.5-17.5); Mean Corpuscular HGB 29.4 pg (26.0-34.0); Mean Corpuscular Volume 86 fL (80-100); Mean Platelet Volume 9.5 fL (9.1-12.4); Platelet Count 521 K/mm3 (150-400); RDW Standard Deviation 43.8 fL (35.1-46.3); Red Blood Cell Count 4.02 M/mm3 (4.30-5.90); White Blood Cell Count 9.64 K/mm3 (4.00-11.30)
[2022-05-12 06:18] LABS: Bun/Creatinine Ratio 30.4 (12.0-20.0); Calcium, Blood 8.6 mg/dL (8.5-10.1); Creatinine, Blood 0.53 mg/dL (0.60-1.20); Potassium, Blood 4.2 mmol/L (3.5-5.5)
--- NOTE | 2022-05-12 16:23 | NUR ---
ALERT AND ORIENTED, MEDICATED WITH TYLENOL, ATARAX, AND OXY PER EMAR. MAKES NEEDS KNOWN, REPOSITIONS SELF, NO ACUTE CHANGES, POSSIBLE DISCHARGE HOME TOMORROW, WILL RELAY TO PM RN
--- NOTE | 2022-05-13 04:20 | NUR ---
SHIFT UNREMARKABLE. PATIENT SLEPT THROUGH MOST OF SHIFT. PAIN ADEQUATELY MANAGED ON CURRENT REGIMEN. CALL LIGHT LEFT WITHIN REACH.
--- NOTE | 2022-05-13 13:10 | NUR ---
PATIENTS KIDS VISITING
--- NOTE | 2022-05-13 18:33 | NUR ---
ALERT AND ORIENTED, EKG DUE TO CHEST PRESSURE NEGATIVE, TROPONIN DRAWN NEGATIVE, ALBUTEROL AND IS TX STARTED, PATIENT NEEDS REMINDERS TO TAKE IS. MEDICATED WITH NORCO, TYLENOL, AND ATARAX. INCREASED APPETITE, CONTINUALLY WANTS SNACKS, WILL RELAY TO PM RN
--- NOTE | 2022-05-14 03:47 | NUR ---
SHIFT MOSTLY UNREMARKABLE. PATIENT ENCOURAGED TO USE INCENTIVE SPIROMETER AND AMBULATE TO BATHROOM WHEN HE NEEDS TO VOID. PATIENT VOICED UNDERSTANDING BUT EXPRESSED HESITANCE TO USE SPIROMETER DUE TO DIFFICULTY. BRIEFLY REVIEWED USE. PATIENT CONTINUES TO COMPLAIN OF DYSPNEA WHEN PROMPTED TO BREATHE DEEPLY. BREAKTHROUGH PAIN COMMON SHORTLY BEFORE NEXT DOSE IS DUE. CALL LIGHT LEFT WITHIN REACH.
[2022-05-14] MEDS ORDERED: VISBIOME 112.51 EACH PO (10:46)
[2022-05-14] MEDS ORDERED: BACTRIM DS TAB1 EAC6 PO (10:47)
--- NOTE | 2022-05-14 11:11 | NUR ---
DISCHARGE: PT DISCHARGED VIA AUTOMOBILE WITH FRIEND. POWERGLIDE D/C'D WITHOUT COMPLICATIONS. DISCHARGE INSTRUCTIONS SPOKEN AND PROVIDED TO PT. MEDICATIONS FAXED TO [facility]. PT AWARE HE IS TO BOILER[employer]KER [employer] ANTIBIOTICS AND SCHEDULE FOLLOW-UP APPOINTMENT WITH DR. PABLO.
--- NOTE | 2022-05-14 12:16 | NUR ---
ACCIDENTALLY SENT PT HOME WITH SIGNED DISCHARGE PAPER.
== END 2022-05-14 11:07 | disposition home or self-care (01) | DRG 682 ==
LOC: ER 13:29 → MEDS 17:00 → PCU 17:00 → MEDS 17:00 → PCU 18:27 → MEDS 05-08 15:52
PROVIDERS: Emergency Medicine; Family Medicine; Internal Medicine; ADMIT Student in an Organized Health Care Education/Training Program
DX: N17.9 Acute kidney failure, unspecified (principal); A41.01 Sepsis due to Methicillin susceptible Staphylococcus aureus; R65.20 Severe sepsis without septic shock; J18.9 Pneumonia, unspecified organism; E87.1 Hypo-osmolality and hyponatremia; F11.23 Opioid dependence with withdrawal; F15.23 Other stimulant dependence with withdrawal; F17.210 Nicotine dependence, cigarettes, uncomplicated; E86.0 Dehydration; R74.01 Elevation of levels of liver transaminase levels; K40.90 Unilateral inguinal hernia, without obstruction or gangrene, not specified as recurrent; B19.20 Unspecified viral hepatitis C without hepatic coma; Z98.890 Other specified postprocedural states; Z28.21 Immunization not carried out because of patient refusal
CPT/HCPCS: 36415; 71045; 76700; 76857; 80048; 80053; 80069; 80074; 80202; 81001; 82570; 83690; 83735; 83930; 83935; 84145; 84295; 84300; 84484; 85025; 85027; 87040; 87070; 87077; 87086; 87186; 87205; 93005; 93010; 93306; 94640; 94664; 94760; 94762; 96374; 96375; 99285-25; A9270; J0690; J0696; J1644; J1885; J2060; J3370; J7030; J7050; J7060

== ENCOUNTER 2023-03-12 20:39 | Emergency (ER) | payer OTHER ==
[~2023-03-12] VITALS: Ht 195.6 cm; Wt 77.1 kg
[~2023-03-12 20:39] MED LIST changes: +BACTRIM DS TAB1 EAC6 PO; +VISBIOME 112.51 EACH PO
[2023-03-12] MEDS ORDERED: NALOXONE HC1 MG/1 ML IV (23:53)
[2023-03-13] VITALS: BP 124/78
== END 2023-03-13 00:04 | disposition home or self-care (01) ==
LOC: ER 20:39
DX: F11.10 Opioid abuse, uncomplicated (principal); K40.90 Unilateral inguinal hernia, without obstruction or gangrene, not specified as recurrent; F17.200 Nicotine dependence, unspecified, uncomplicated
CPT/HCPCS: 99284

== ENCOUNTER 2023-10-21 22:41 | Emergency (ER) | payer OTHER ==
[~2023-10-21] VITALS: Ht 190.5 cm; Wt 79.4 kg
[~2023-10-21 22:41] MED LIST changes: +DOCU100 PO; +NALOXONE HC1 MG/1 ML IV
[2023-10-21] MEDS ORDERED: Diphth,Pertuss(Acell),Tet Vac 0.5 ML VIAL IM ONE (23:45)
[2023-10-21] MEDS ORDERED: Lidocaine HCl 4% Cream 5 GM TOP ONE (23:45)
[2023-10-21] MEDS ORDERED: Ketorolac Tromethamine 30mg Vial IM ONE (23:45)
[2023-10-21] MEDS ORDERED: Acetaminophen 500 MG Tab PO ONE (23:45)
[2023-10-22] MEDS ORDERED: IBUP400 PO (00:15)
[2023-10-22] MEDS ORDERED: ACET325 PO (00:15)
[2023-10-22] MEDS ORDERED: LIDO5TO TOP (00:15)
[2023-10-22 00:59] VITALS: BP 163/100
== END 2023-10-22 01:14 | disposition home or self-care (01) ==
LOC: ER 22:41
DX: S30.810A Abrasion of lower back and pelvis, initial encounter (principal); S30.813A Abrasion of scrotum and testes, initial encounter; S90.812A Abrasion, left foot, initial encounter; S90.811A Abrasion, right foot, initial encounter; W17.81XA Fall down embankment (hill), initial encounter; F17.200 Nicotine dependence, unspecified, uncomplicated
CPT/HCPCS: 90471; 90715; 96372; 99282-25; A9270; J1885

== ENCOUNTER 2023-11-10 10:10 | Emergency (ER) | payer OTHER ==
[~2023-11-10] VITALS: Ht 193 cm; Wt 79.4 kg
[~2023-11-10 10:10] MED LIST changes: +ACET325 PO; +IBUP400 PO; +LIDO5TO TOP
[2023-11-10 10:25] VITALS: BP 160/100
[2023-11-10] MEDS ORDERED: Ketorolac Tromethamine 15mg Vial IV ONE (10:45)
[2023-11-10 10:48] LABS: BASOPHILS ABSOLUTE AUTO 0.11 K/mm3 (0.00-0.23); BASOPHILS PERCENT AUTO 1 % (0-2); EOSINOPHILS ABSOLUTE AUTO 0.29 K/mm3 (0.00-0.68); EOSINOPHILS PERCENT AUTO 2 % (0-6); Hematocrit 34.5 % (37.0-53.0); Hemoglobin 10.5 g/dL (13.5-17.5); IMMATURE GRAN ABSOLUTE AUTO 0.03 K/mm3 (0.00-0.10); IMMATURE GRAN PERCENT AUTO 0 % (0-1); LYMPHOCYTES ABSOLUTE AUTO 2.01 K/mm3 (0.84-5.20); LYMPHOCYTES PERCENT AUTO 17 % (21-46); MONOCYTES ABSOLUTE AUTO 1.24 K/mm3 (0.16-1.47); MONOCYTES PERCENT AUTO 10 % (4-13); Mean Corpuscular HGB Conc 30.4 g/dL (31.5-36.5); Mean Corpuscular Volume 95 fL (80-100); NEUTROPHILS PERCENT AUTO 69 % (41-73); Platelet Count 338 K/mm3 (150-400); RDW Standard Deviation 49.3 fL (35.1-46.3); Red Blood Cell Count 3.62 M/mm3 (4.30-5.90); White Blood Cell Count 11.98 K/mm3 (4.00-11.30)
[2023-11-10] MEDS ORDERED: CeFAZolin Sodium 2,000 MG in NS 100 ML IV ONE (10:50)
[2023-11-10 11:06] LABS: Albumin, Blood 3.7 g/dL (3.4-5.0); Albumin/Globulin Ratio 0.9 (0.8-1.8); Bilirubin, Total 0.2 mg/dL (0.1-1.0); Bun/Creatinine Ratio 30.4 (12.0-20.0); Creatinine, Blood 0.69 mg/dL (0.60-1.20); Globulin, Blood 4.3 g/dL (2.2-4.0); Potassium, Blood 4.5 mmol/L (3.5-5.5)
[2023-11-10] MEDS ORDERED: Keflex500 MG PO (12:00)
[2023-11-10] MEDS ORDERED: IBUP600 PO (12:00)
== END 2023-11-10 12:34 | disposition home or self-care (01) ==
LOC: ER 10:10
PROVIDERS: Emergency Medicine
DX: L03.115 Cellulitis of right lower limb (principal); M20.41 Other hammer toe(s) (acquired), right foot; M24.477 Recurrent dislocation, right toe(s); F17.200 Nicotine dependence, unspecified, uncomplicated
CPT/HCPCS: 36415; 73630; 80053; 85025; 96365; 96375; 99283-25; J0690; J1885

== ENCOUNTER 2024-03-05 17:25 | Emergency (ER) | payer OTHER ==
[~2024-03-05] VITALS: Ht 193 cm; Wt 83.9 kg
[~2024-03-05 17:25] MED LIST changes: +IBUP600 PO; +Keflex500 MG PO
[2024-03-05 18:02] VITALS: BP 128/85
[2024-03-05 18:25] LABS: BASOPHILS ABSOLUTE AUTO 0.05 K/mm3 (0.00-0.23); BASOPHILS PERCENT AUTO 0 % (0-2); EOSINOPHILS ABSOLUTE AUTO 0.02 K/mm3 (0.00-0.68); EOSINOPHILS PERCENT AUTO 0 % (0-6); Hemoglobin 10.1 g/dL (13.5-17.5); IMMATURE GRAN ABSOLUTE AUTO 0.07 K/mm3 (0.00-0.10); IMMATURE GRAN PERCENT AUTO 0 % (0-1); LYMPHOCYTES ABSOLUTE AUTO 1.24 K/mm3 (0.84-5.20); LYMPHOCYTES PERCENT AUTO 7 % (21-46); MONOCYTES ABSOLUTE AUTO 2.34 K/mm3 (0.16-1.47); MONOCYTES PERCENT AUTO 14 % (4-13); Mean Corpuscular HGB 28.8 pg (26.0-34.0); Mean Corpuscular HGB Conc 32.6 g/dL (31.5-36.5); Mean Corpuscular Volume 88 fL (80-100); Mean Platelet Volume 9.7 fL (9.1-12.4); NEUTROPHILS ABSOLUTE AUTO 13.42 K/mm3 (1.96-9.15); NEUTROPHILS PERCENT AUTO 78 % (41-73); Platelet Count 356 K/mm3 (150-400); RDW Coefficient Variation 15.6 % (11.7-14.2); RDW Standard Deviation 49.3 fL (35.1-46.3); Red Blood Cell Count 3.51 M/mm3 (4.30-5.90); White Blood Cell Count 17.14 K/mm3 (4.00-11.30)
[2024-03-05 18:48] LABS: Albumin, Blood 2.9 g/dL (3.4-5.0); Albumin/Globulin Ratio 0.6 (0.8-1.8); Bilirubin, Total 0.7 mg/dL (0.1-1.0); Bun/Creatinine Ratio 9.6 (12.0-20.0); Calcium, Blood 8.4 mg/dL (8.5-10.1); Creatinine, Blood 1.36 mg/dL (0.60-1.20); Globulin, Blood 4.5 g/dL (2.2-4.0); Potassium, Blood 3.9 mmol/L (3.5-5.5); Total Protein, Blood 7.4 g/dL (6.4-8.2)
[2024-03-05] MEDS ORDERED: Cephalexin Monohydrate 500 MG Cap PO ONE (19:40)
[2024-03-05] MEDS ORDERED: CEPH500 PO (19:42)
== END 2024-03-05 20:00 | disposition home or self-care (01) ==
LOC: ER 17:25
PROVIDERS: Physician Assistant
DX: L03.113 Cellulitis of right upper limb (principal); F17.200 Nicotine dependence, unspecified, uncomplicated
CPT/HCPCS: 36415; 73080; 80053; 85025; 99283-25; A9270

== ENCOUNTER 2024-03-08 15:09 | Inpatient (IN) | payer OTHER ==
[~2024-03-08] VITALS: Ht 190.5 cm; Wt 81.3 kg
[2024-03-08] MEDS ORDERED: Clindamycin 900mg in D5W 50ML 50 ML IV ONE (18:45)
[2024-03-08 18:50] LABS: BASOPHILS ABSOLUTE AUTO 0.05 K/mm3 (0.00-0.23); BASOPHILS PERCENT AUTO 0 % (0-2); EOSINOPHILS ABSOLUTE AUTO 0.21 K/mm3 (0.00-0.68); EOSINOPHILS PERCENT AUTO 2 % (0-6); Hematocrit 28.5 % (37.0-53.0); Hemoglobin 9.3 g/dL (13.5-17.5); IMMATURE GRAN ABSOLUTE AUTO 0.04 K/mm3 (0.00-0.10); IMMATURE GRAN PERCENT AUTO 0 % (0-1); LYMPHOCYTES ABSOLUTE AUTO 1.74 K/mm3 (0.84-5.20); LYMPHOCYTES PERCENT AUTO 15 % (21-46); MONOCYTES PERCENT AUTO 13 % (4-13); Mean Corpuscular HGB 28.6 pg (26.0-34.0); Mean Corpuscular HGB Conc 32.6 g/dL (31.5-36.5); Mean Corpuscular Volume 88 fL (80-100); Mean Platelet Volume 9.7 fL (9.1-12.4); NEUTROPHILS ABSOLUTE AUTO 8.11 K/mm3 (1.96-9.15); NEUTROPHILS PERCENT AUTO 70 % (41-73); Platelet Count 339 K/mm3 (150-400); RDW Coefficient Variation 15.5 % (11.7-14.2); RDW Standard Deviation 49.5 fL (35.1-46.3); Red Blood Cell Count 3.25 M/mm3 (4.30-5.90); White Blood Cell Count 11.65 K/mm3 (4.00-11.30)
[2024-03-08 19:02] LABS: Albumin, Blood 2.6 g/dL (3.4-5.0); Albumin/Globulin Ratio 0.5 (0.8-1.8); Bilirubin, Total 0.5 mg/dL (0.1-1.0); Bun/Creatinine Ratio 19.5 (12.0-20.0); Calcium, Blood 8.4 mg/dL (8.5-10.1); Creatinine, Blood 0.87 mg/dL (0.60-1.20); Globulin, Blood 4.8 g/dL (2.2-4.0); Potassium, Blood 4.4 mmol/L (3.5-5.5); Total Protein, Blood 7.4 g/dL (6.4-8.2)
[2024-03-08] MEDS ORDERED: Lactobacil 2-S.Thermo-Bifido 1 1 Cap PO SCH (21:00)
[2024-03-08] MEDS ORDERED: NS 1,000 ML IV SCH (21:05)
[2024-03-08] MEDS ORDERED: Ondansetron HCl 2 MG / ML 2ML Vial IV PRN (21:05)
[2024-03-08] MEDS ORDERED: FLU VACC TS2024-25(6MOS UP)/PF 45 MCG/0.5 ML SYRINGE IM ONE (21:05)
[2024-03-08] MEDS ORDERED: NS 1,000 ML IV ONE (21:16)
[2024-03-08] MEDS ORDERED: Vancomycin HCL 1,750 MG in NS 500 ML IV ONE (21:20)
[2024-03-09] MEDS ORDERED: CeFAZolin Sodium 2,000 MG in NS 100 ML IV SCH
[2024-03-09 05:38] LABS: Hematocrit 28.3 % (37.0-53.0); Hemoglobin 9.2 g/dL (13.5-17.5); Mean Corpuscular HGB 28.7 pg (26.0-34.0); Mean Corpuscular HGB Conc 32.5 g/dL (31.5-36.5); Mean Corpuscular Volume 88 fL (80-100); Mean Platelet Volume 9.3 fL (9.1-12.4); Platelet Count 336 K/mm3 (150-400); RDW Coefficient Variation 15.6 % (11.7-14.2); RDW Standard Deviation 50.4 fL (35.1-46.3); Red Blood Cell Count 3.21 M/mm3 (4.30-5.90); White Blood Cell Count 7.05 K/mm3 (4.00-11.30)
[2024-03-09] MEDS ORDERED: Vancomycin HCL 1,250 MG in NS 250 ML IV SCH (06:00)
[2024-03-09 06:02] LABS: Bun/Creatinine Ratio 20.1 (12.0-20.0); Calcium, Blood 8.5 mg/dL (8.5-10.1); Creatinine, Blood 0.65 mg/dL (0.60-1.20); Potassium, Blood 4.2 mmol/L (3.5-5.5)
[2024-03-09] MEDS ORDERED: Enoxaparin 40 MG/0.4 ML SYR SC SCH (09:00)
[2024-03-09 13:06] VITALS: BP 156/111
[2024-03-09] MEDS ORDERED: NS 250 ML IV PRN (14:25)
[2024-03-09] MEDS ORDERED: OxyCODONE 5 mg/Acetamin 325 mg TABLET PO PRN (14:40)
[2024-03-09] MEDS ORDERED: FentaNYL Citrate 50 MCG/ML 2 ML Injection IV PRN (14:40)
[2024-03-09] MEDS ORDERED: Polyethylene Glycol 3350 17 gm PO PRN (14:50)
[2024-03-09 14:55] LABS: C-REACTIVE PROTEIN, EXT RANGE 6.96 mg/dL (0.000-0.300)
[2024-03-09] MEDS ORDERED: NS 1,000 ML IV SCH (15:05)
[2024-03-09 15:15] LABS: U Amphetamine Screen DETECTED; U Barbituate Screen Not Detected; U Benzodiazapine Screen Not Detected; U Buprenorphine Screen Not Detected; U Cannabinoids Screen DETECTED; U Cocaine Screen Not Detected; U Methadone Screen Not Detected; U Methamphetamine Screen DETECTED; U Opiates Screen Not Detected; U Oxycodone Screen Not Detected; U Phencyclidine Screen Not Detected
--- NOTE | 2024-03-09 17:50 | NUR ---
1330-TRANSFER PT ARRIVED BY BED TO ROOM 339, TRANSFERRED INDEPENDANTLY BY FOOT TO ROOM BED. PT SEEMS WITHDRAWN, IRRITABLE, AND COMPLAINS OF PAIN. PT REPORTS TAKING RECREATIONAL DRUGS, LAST USE WAS APPROXIMATELY 2 DAYS AGO PT REPORTS. SINCE ARRIVAL, PT HAS BEEN ASKING AND DEMANDING FOOD/SNACKS. PT WAS GIVEN A LUNCH TRAY AND STILL ASKS FOR SNACKS. SHIFT SUMMARY PT A&OX4, COOPERATIVE, ABLE TO MAKE NEEDS KNOWN. HAS BEEN YELLING ABOUT NOT GETTING ENOUGH FOOD. TOLERATING DRUGS, HAS A TOUGH TIME BEING WOKEN UP AND NOT WANTING TO DO THINGS ACCORDING TO HIS WANTS. USES URINAL APPROPRIATELY. BED IN LOWEST POSITION, JASPAL LIGHT WITHIN REACH.
[2024-03-09 19:41] VITALS: BP 170/109
[2024-03-09 21:49] LABS: Vancomycin, Trough 17.1 ug/mL (5.0-10.0)
[2024-03-09] MEDS ORDERED: HyDROXyzine HCl 10 MG Tab PO PRN (22:50)
[2024-03-09] MEDS ORDERED: HyDROXyzine HCl 25 MG Tab PO PRN (22:55)
[2024-03-10 05:56] VITALS: BP 165/123
[2024-03-10 05:59] VITALS: BP 163/110
[2024-03-10 06:25] LABS: BASOPHILS ABSOLUTE AUTO 0.05 K/mm3 (0.00-0.23); BASOPHILS PERCENT AUTO 1 % (0-2); EOSINOPHILS ABSOLUTE AUTO 0.22 K/mm3 (0.00-0.68); EOSINOPHILS PERCENT AUTO 4 % (0-6); Hematocrit 32.8 % (37.0-53.0); Hemoglobin 10.6 g/dL (13.5-17.5); IMMATURE GRAN ABSOLUTE AUTO 0.04 K/mm3 (0.00-0.10); IMMATURE GRAN PERCENT AUTO 1 % (0-1); LYMPHOCYTES ABSOLUTE AUTO 1.17 K/mm3 (0.84-5.20); LYMPHOCYTES PERCENT AUTO 22 % (21-46); MONOCYTES ABSOLUTE AUTO 0.67 K/mm3 (0.16-1.47); MONOCYTES PERCENT AUTO 12 % (4-13); Mean Corpuscular HGB 28.1 pg (26.0-34.0); Mean Corpuscular HGB Conc 32.3 g/dL (31.5-36.5); Mean Corpuscular Volume 87 fL (80-100); Mean Platelet Volume 9.8 fL (9.1-12.4); NEUTROPHILS PERCENT AUTO 61 % (41-73); Platelet Count 387 K/mm3 (150-400); RDW Coefficient Variation 15.6 % (11.7-14.2); RDW Standard Deviation 49.2 fL (35.1-46.3); Red Blood Cell Count 3.77 M/mm3 (4.30-5.90); White Blood Cell Count 5.45 K/mm3 (4.00-11.30)
--- NOTE | 2024-03-10 06:58 | NUR ---
SHIFT SUMMARY CULTURE SPECIMIN COLLECTED FROM RIGHT ELBOW APPROX 2129. PT EXTREMELY AGITATED. REFUSING TO ALLOW LAB TO DRAW FOR VANCO DOSING SWEARING AND RAISING HIS VOICE STATING "I'M NOT A FU*VAISHNAVI PIN-CUSHION". THIS RN EXPLAINED TO PT THE NEED FOR THE BLOOD DRAW AND THAT HE WAS WELL WITHIN HIS RIGHTS TO REFUSE, HOWEVER, WE COULD NOT ADMINISTER VANCO WITHOUT IT, WE NEED TO ENSURE CORRECT DOSING IS ADMINISTERED. PT AGREED TO ALLOW BLOOD DRAW. PT APPOLOGIZED AND STATED HE WAS IN PAIN. PT MEDICATED FOR PAIN AND OFFERED SOME CRACKERS. PT ALSO STATED HE HAS ANXIETY. CALLED DOCTOR FOR ANXIETY MEDS. HYDROXYZINE ORDERED Q6PRN. PT ABLE TO SLEEP COMFORTABLY AFTER ADMINISTRATION OF ANXIETY MEDICATION. PT MUCH MORE RECEPTIVE TO MORNING LAB DRAWS, ALTHOUGH STILL ANXIOUS. WILL RELAY TO DAY NURSE.
[2024-03-10 07:23] LABS: Percent Saturation 8.1 % (20.0-50.0)
[2024-03-10 08:05] VITALS: BP 159/111
[2024-03-10 14:26] LABS: IMMATURE RETIC FRACTION 7.2 % (2.3-16.0); RETIC HGB EQUIVALENT 25.7 pg (28.20-36.60); RETICULOCYTE ABSOLUTE 0.0272 M/mm3 (0.0200-0.1100); RETICULOCYTE COUNT PERCENT 0.74 % (0.50-2.50)
[2024-03-10 15:06] VITALS: BP 154/107
[2024-03-10 19:30] VITALS: BP 162/104
[2024-03-10] MEDS ORDERED: LORazepam 2 MG/ML 1ML Injection IV PRN (21:00)
[2024-03-10] MEDS ORDERED: LORazepam 2 MG/ML 1ML Injection IV ONE (21:00)
[2024-03-11 05:29] VITALS: BP 160/108
--- NOTE | 2024-03-11 06:53 | NUR ---
SHIFT SUMMARY PT PRESENTING HIGH LEVELS OF AGITATION TODAY. YELLING OUT IN ROOM "GET THESE THINGS THE F*CK OFF OF ME!". THIS RN STATED TO PT THAT THERE WAS NOTHING ON HIM OR MESSING WITH HIM. PT MEDICATED FOR PAIN AND IV ATIVAN ORDERED FOR AGITATION. AFTER ADMINISTRATION, PT SLEEPING SOUNDLY. PT WOKE APPROX 0600 RAISING HIS VOICE DEMANDING SODA. YOUTH LIAISON OFFICER WENT TO ASK HIM WHAT SHE COULD DO FOR HIM, AND HE BEGAN YELLING AND SWEARING AT HER. THIS RN INFORMED PT THAT SUCH BEHAVIOR WILL NOT BE TOLLERATED. "WE ARE DOING OUR BEST TO CARE FOR YOU, AND YOU DO NOT GET TO SPEAK TO US IN THAT WAY." PT YELLED AT THIS RN STATING "F*CK. WHATEVER. I'M NOT YELLING AT ANYONE. I JUST WANT SOME F*CKING SODA." THIS RN INFORMED PT THAT IF THERE IS SOMETHING HE WOULD LIKE, ALL HE HAS TO DO IS ASK, AND WE WILL DO WHAT WE CAN TO HELP HIM, BUT HE CANNOT YELL AND SWEAR AT THE STAFF WHENEVER HE WANTS SOMETHING. WILL RELAY TO DAY SHIFT, THERE SHOULD BE TWO PEOPLE IN HIS ROOM WHEN DUTIES MUST BE PERFORMED FOR SAFETY. PT HAS JUMPED AT STAFF MULTIPLE TIMES, FISTS CLENCHED, AND SWUNG ON JAVASCRIPT FRONT END DEVELOPER YESTERDAY. ALSO REPORTED THIS TO CARRY ALL DRIVER.
[2024-03-11 07:33] VITALS: BP 149/118
[2024-03-11 14:28] VITALS: BP 179/107
--- NOTE | 2024-03-11 17:48 | NUR ---
SUMMARY- PT HERE WITH CELLULITIS OF L ELBOW. REDNESS, SWELLING AND PAIN. DR ALBERTO CAME TO EVAL PT'S WOUND AT 1500, STILL NO NEED FOR SURGERY. A/O X3-4, FREQ PERIODS OF HIGH EMOTIONS AND POOR COPING. HAS TRIED TO REFUSE MULT INTERVENTIONS VS AND LABS BUT STAFF STRONGLY ENCOURAGE SO PT CAN BE TREATED EFFECTIVELY. PT BECAME SO HOSTILE A FEW TIMES, SCREAMING AND POSTERING WITH TIGHT FISTS. STAFF CAME INTO THE ROOM 2 AT A TIME FOR SAFETY. TRIED TO SET LIMITS, BUT PT INSISTED HE HAD ANYTHING AND EVERYTHING HE WANTED WHEN HE WANTED IT. FREQ SCREAMING FROM THE HALLS, "NURSE, NURSE..." MINUTES AFTER HE WAS TAKEN FOOD OR DRINK. REFUSED TO DRINK WATER AND ONLY WANTE SODA. SCREAMS AND CRIES DURING VS SO BP READS HIGH BECAUSE PT IS SO CLEANCHED FROM PAIN OF BP CUFF. PT HAS POOR COPING, BUT LATER IN THE SHIFT BECAME MORE AGREEABLE AND APPROPRIATE. APPOLOGIZED FOR HIS BEHAVIOR AND ACTED NICER. PT HAS A VEROCIOUS APPETIBE AND TAKING IN LG QUANTIES OF FLUIDS. VOIDING FREQ, VERY LIGHT URINE.
[2024-03-11 20:18] VITALS: BP 154/110
[2024-03-11 22:09] LABS: Creatinine, Blood 0.76 mg/dL (0.60-1.20)
[2024-03-11] MEDS ORDERED: Vancomycin HCL 1,000 MG in NS 250 ML IV SCH (23:00)
--- NOTE | 2024-03-12 05:58 | NUR ---
SHIFT SUMMARY NOC PT A/O X 4. PLEASANT AND COOPERATIVE WITH CARE. BP REMAINS ELEVATED. R ELBOW AND FOREARM HAVE SIGNIFICANT SWELLING WELL RED AND WARM TO TOUCH. RUE PAIN BEING MANAGED PER EMAR. PT RECEIVING IV ABX FOR CELLULITIS. VANCOMYCIN DOSAGE CHANGED TO 1G Q8H. PT CURRENTLY RESTING WITH BED IN LOWEST POSITION, AND CALL LIGHT WITHIN REACH.
[2024-03-12 06:21] VITALS: BP 159/114
[2024-03-12 07:02] LABS: BASOPHILS ABSOLUTE AUTO 0.06 K/mm3 (0.00-0.23); BASOPHILS PERCENT AUTO 1 % (0-2); EOSINOPHILS ABSOLUTE AUTO 0.22 K/mm3 (0.00-0.68); EOSINOPHILS PERCENT AUTO 4 % (0-6); Hematocrit 31.5 % (37.0-53.0); Hemoglobin 10.3 g/dL (13.5-17.5); IMMATURE GRAN ABSOLUTE AUTO 0.07 K/mm3 (0.00-0.10); IMMATURE GRAN PERCENT AUTO 1 % (0-1); LYMPHOCYTES ABSOLUTE AUTO 1.56 K/mm3 (0.84-5.20); LYMPHOCYTES PERCENT AUTO 26 % (21-46); MONOCYTES ABSOLUTE AUTO 0.77 K/mm3 (0.16-1.47); MONOCYTES PERCENT AUTO 13 % (4-13); Mean Corpuscular HGB 27.9 pg (26.0-34.0); Mean Corpuscular HGB Conc 32.7 g/dL (31.5-36.5); Mean Corpuscular Volume 85 fL (80-100); Mean Platelet Volume 9.4 fL (9.1-12.4); NEUTROPHILS PERCENT AUTO 56 % (41-73); Platelet Count 401 K/mm3 (150-400); RDW Coefficient Variation 15.4 % (11.7-14.2); RDW Standard Deviation 47.9 fL (35.1-46.3); Red Blood Cell Count 3.69 M/mm3 (4.30-5.90); White Blood Cell Count 6.08 K/mm3 (4.00-11.30)
[2024-03-12 07:29] LABS: Bun/Creatinine Ratio 25.9 (12.0-20.0); Creatinine, Blood 0.62 mg/dL (0.60-1.20); Potassium, Blood 4.1 mmol/L (3.5-5.5)
[2024-03-12 07:43] VITALS: BP 162/116
[2024-03-12] MEDS ORDERED: HydrALAZINE HCl 20 MG / ML 1ML Vial IV PRN (07:55)
--- NOTE | 2024-03-12 07:55 | NUR ---
CALLED AND SPOKE WITH DR. JOE REGBARONING PATIENT'S BLOOD PRESSURE. NEW ORDERS RECEIVED.
[2024-03-12] MEDS ORDERED: Lisinopril 10 MG Tab PO SCH (08:00)
--- NOTE | 2024-03-12 11:58 | NUR ---
PATIENT REQUESTING ATIVAN AND STATES THAT HE IS HAVING AN AXIETY/PANIC ATTACK AND SKIN IS CRAWLING. SPOKE WITH DR. JOE AND GOT AN ORDER FOR ATIVAN.
[2024-03-12] MEDS ORDERED: LORazepam 2 MG/ML 1ML Injection IV ONE (12:00)
[2024-03-12] MEDS ORDERED: LORazepam 2 MG/ML 1ML Injection IV PRN (12:00)
[2024-03-12 16:12] VITALS: BP 149/105
[2024-03-12] MEDS ORDERED: Nicotine Polacrilex 2 MG Gum PO PRN (16:55)
--- NOTE | 2024-03-12 17:01 | NUR ---
SHIFT SUMMARY: PT OVERALL PLEASANT AND COOPERATIVE WITH CARE; DOES USE CALL LIGHT AND CALL OUT FOR NEEDS. PATIENT ANXIOUS/PARANOID; WITHDRAWALING FROM DRUGS. GIVEN ATIVAN AND PAIN MEDICATIONS NEEDED; PATIENT TOLERATING WELL. PATIENT TOOK A SHOWER TODAY, DRESSING APPLIED TO R ELBOW; CONTINUES TO DRAIN FLUID. PATIENT ON CONTACT PRECAUTIONS DUE TO POSITIVE WOUND CULTURE FOR MRSA. HE CONTINUES TO GET IV ANTIBIOTICS. PATIENT HAS BEEN IN CONTACT WITH HIS MOTHER AND STATES THAT HIS MOTHER WILL ALLOW FOR HIM TO COME STAY WITH HIM AFTER DISCHARGE VERSUS BACK ONTO THE STREETS. PATIENT IN HIS BED, CALL LIGHT WITHIN REACH, NO SIGNS OR SYMPTOMS OF DISTRESS, PLAN OF CARE ONGOING.
[2024-03-12 19:49] VITALS: BP 151/124
[2024-03-12 23:09] LABS: Vancomycin, Trough 13.4 ug/mL (5.0-10.0)
[2024-03-13 06:48] VITALS: BP 152/95
[2024-03-13 06:48] LABS: BASOPHILS ABSOLUTE AUTO 0.09 K/mm3 (0.00-0.23); BASOPHILS PERCENT AUTO 1 % (0-2); EOSINOPHILS ABSOLUTE AUTO 0.27 K/mm3 (0.00-0.68); EOSINOPHILS PERCENT AUTO 4 % (0-6); Hematocrit 31.4 % (37.0-53.0); Hemoglobin 10.2 g/dL (13.5-17.5); IMMATURE GRAN PERCENT AUTO 1 % (0-1); LYMPHOCYTES ABSOLUTE AUTO 2.02 K/mm3 (0.84-5.20); LYMPHOCYTES PERCENT AUTO 28 % (21-46); MONOCYTES ABSOLUTE AUTO 0.92 K/mm3 (0.16-1.47); MONOCYTES PERCENT AUTO 13 % (4-13); Mean Corpuscular HGB 27.9 pg (26.0-34.0); Mean Corpuscular HGB Conc 32.5 g/dL (31.5-36.5); Mean Corpuscular Volume 86 fL (80-100); Mean Platelet Volume 10.3 fL (9.1-12.4); NEUTROPHILS ABSOLUTE AUTO 3.92 K/mm3 (1.96-9.15); NEUTROPHILS PERCENT AUTO 54 % (41-73); Platelet Count 399 K/mm3 (150-400); RDW Coefficient Variation 15.6 % (11.7-14.2); Red Blood Cell Count 3.66 M/mm3 (4.30-5.90); White Blood Cell Count 7.32 K/mm3 (4.00-11.30)
[2024-03-13 06:59] LABS: Bun/Creatinine Ratio 27.4 (12.0-20.0); Calcium, Blood 8.9 mg/dL (8.5-10.1); Creatinine, Blood 0.66 mg/dL (0.60-1.20); Potassium, Blood 3.9 mmol/L (3.5-5.5)
--- NOTE | 2024-03-13 07:37 | NUR ---
SHIFT SUMMARY NOC PT A/O X 4. PLEASANT AND COOPERATIVE WITH CARE. BP ELEVATED AT BEDTIME, BUT IMPROVED IN AM. RUE PAIN AND AGITATION/ANXIETY BEING MANAGED PER EMAR. PT HAS NOT HAD ANY OUTBURSTS TOWARDS STAFF DURING SHIFT. PT SLEPT FOR MAJORITY OF SHIFT ONLY WAKING UP FOR SNACKS OR TO EMPTY URINAL. PT CURRENTLY RESTING WITH BED IN LOWEST POSITION, AND CALL LIGHT WITHIN REACH.
[2024-03-13] MEDS ORDERED: OxyCODONE HCL 10 MG TABCR PO SCH (09:00)
[2024-03-13 15:58] VITALS: BP 154/92
--- NOTE | 2024-03-13 16:45 | NUR ---
SHIFT SUMMARY: NO EVENTS OR CHANGES WITH PATIENT THROUGHOUT THE SHIFT. HE CONTINUES TO COMPLAIN OF PAIN 9-02/12 REGUARDLESS OF TREATMENT/INTERVENTION. PATIENT REQUEST PAIN AND ANXIETY MEDICATION. HE CONTINUES TO GET IV ANTIBIOTICS; MD AWARE OF WOUND CULTURE RESULTS. PATIENT IN BED, CALL LIGHT WITHIN REACH, DOES CALL OUT FOR STAFF ONCE CALL LIGHT IS PRESSED FOR NEEDS, DOES GET IRRITABLE/AGITATED IF NOT ADDRESSED QUICKLY. NO SIGNS OR SYMPTOMS OF DISTRESS, PLAN OF CARE ONGOING.
[2024-03-13 20:36] VITALS: BP 150/82
[2024-03-14 07:18] VITALS: BP 136/92
--- NOTE | 2024-03-14 07:18 | NUR ---
SHIFT SUMMARY PT A&Ox4. PT MEDICATED PER EMAR T/O NIGHT FOR PAIN IN RIGHT ELBOW. ANXIETY MEDS ALSO GIVEN PRN. PT REMOVED DRESSING FROM ELBOW AND DECLINED TO HAVE NEW ONE PLACED. SCANT AMOUNT OF LIGHT COLORED DRAINAGE SEEPING FROM ELBOW. CONTINUING IV ABX. VSS. PT CALLS APPROPRIATELY BUT REQUESTS FREQUENT DRINKS AND SNACKS. BED IN LOWEST POSITION AND CALL LIGHT IN REACH.
[2024-03-14] MEDS ORDERED: OxyCODONE HCL 15 MG TAB.SR.12H PO SCH (09:00)
[2024-03-14 11:01] LABS: BASOPHILS ABSOLUTE AUTO 0.08 K/mm3 (0.00-0.23); BASOPHILS PERCENT AUTO 1 % (0-2); EOSINOPHILS ABSOLUTE AUTO 0.25 K/mm3 (0.00-0.68); EOSINOPHILS PERCENT AUTO 4 % (0-6); Hematocrit 30.6 % (37.0-53.0); Hemoglobin 9.9 g/dL (13.5-17.5); IMMATURE GRAN ABSOLUTE AUTO 0.08 K/mm3 (0.00-0.10); IMMATURE GRAN PERCENT AUTO 1 % (0-1); LYMPHOCYTES PERCENT AUTO 22 % (21-46); MONOCYTES ABSOLUTE AUTO 0.91 K/mm3 (0.16-1.47); MONOCYTES PERCENT AUTO 13 % (4-13); Mean Corpuscular HGB Conc 32.4 g/dL (31.5-36.5); Mean Corpuscular Volume 86 fL (80-100); Mean Platelet Volume 9.7 fL (9.1-12.4); NEUTROPHILS ABSOLUTE AUTO 4.27 K/mm3 (1.96-9.15); NEUTROPHILS PERCENT AUTO 59 % (41-73); Platelet Count 368 K/mm3 (150-400); RDW Coefficient Variation 15.5 % (11.7-14.2); RDW Standard Deviation 49.5 fL (35.1-46.3); Red Blood Cell Count 3.54 M/mm3 (4.30-5.90); White Blood Cell Count 7.19 K/mm3 (4.00-11.30)
[2024-03-14 11:24] LABS: Bun/Creatinine Ratio 38.9 (12.0-20.0); Creatinine, Blood 0.59 mg/dL (0.60-1.20); Potassium, Blood 4.1 mmol/L (3.5-5.5)
[2024-03-14 14:28] LABS: Vancomycin, Trough 13.6 ug/mL (5.0-10.0)
[2024-03-14 15:15] VITALS: BP 178/96
--- NOTE | 2024-03-14 18:21 | NUR ---
SHIFT SUMMARY PATIENT IN BED MOST OF THIS SHIFT. DRESSING NOT IN PLACE TO RIGHT ELBOW, PATIENT DECLINING TO HAVE DRESSING PLACED, AREA RED, NOT OPEN. VOIDING WELL, NO BM THIS SHIFT. TOLERATING ABX WELL. SEVERAL SNACKS GIVEN THROUGHOUT THE SHIFT. SEVERAL COMPLAINTS OF ANXIETY. C/O PAIN THROUGHOUT THE SHIFT, NOT MUCH RELIEF REPORTED. 7/10 LOWEST SCORE GIVEN WITH A GOAL OF 1/10. ABLE TO MAKE NEEDS KNOWN. A/O X4. DVT PROPHYLAXIS DECLINED, VERBALLY EDUCATED, ACKNOWLEDGED UNDERSTANDING. CALL LIGHT IN REACH, ALTHOUGH PATIENT SOMETIMES JUST YELLS OUT INTO MUÑIZ. CARES ONGOING.
[2024-03-14 19:14] VITALS: BP 160/103
[2024-03-14 22:31] VITALS: BP 147/87
--- NOTE | 2024-03-15 03:05 | NUR ---
SHIFT SUMMARY PT AGITATED T/O THIS SHIFT. PT REQUESTING "PAIN MEDS, IV FENTANYL AND IV ATIVAN." PT SHOUTING AT THIS CYBER INSTRUCTOR REGARDING ANY CARE AND PAIN MEDICATION REGIMEN. MEDICATIONS ADMINISTERED ORDERED. PT C/O 02/12 RIGHT SHOULDER PAIN, DID NOT RATE ANXIETY LEVEL. @ 0137 IV LEAKING ON THE LEFT ARM, PT STATED "PUT THE IV BACK TO SAME SPOT." PT EDUCATION ATTEMPTED, PT REFUSED. PT REFUSED A NEW IV. THIS CYBER INSTRUCTOR NOTIFIED GERRI Higgins AND RUBBER ENGRAVER. GERRI Carcamo. ABLE TO DISCUSS A POSSIBLE NEW IV WITH THE PT. PT RESPONDED "OK BUT LET ME SLEEP FOR COUPLE OF HOURS." NO IV OF 299. BED AT THE LOWEST POSITION, CALL LIGHT WITHIN REACH. PT IS A&O X4, ABLE TO MAKE HIS NEEDS KNOWN.
[2024-03-15 04:20] VITALS: BP 152/99
[2024-03-15 08:13] VITALS: BP 161/97
[2024-03-15] MEDS ORDERED: Ketorolac Tromethamine 15mg Vial IV PRN (09:30)
[2024-03-15 10:07] LABS: BASOPHILS ABSOLUTE AUTO 0.06 K/mm3 (0.00-0.23); BASOPHILS PERCENT AUTO 1 % (0-2); EOSINOPHILS PERCENT AUTO 3 % (0-6); Hematocrit 33.6 % (37.0-53.0); Hemoglobin 10.5 g/dL (13.5-17.5); IMMATURE GRAN PERCENT AUTO 2 % (0-1); LYMPHOCYTES PERCENT AUTO 23 % (21-46); MONOCYTES ABSOLUTE AUTO 0.91 K/mm3 (0.16-1.47); MONOCYTES PERCENT AUTO 14 % (4-13); Mean Corpuscular HGB 27.3 pg (26.0-34.0); Mean Corpuscular HGB Conc 31.3 g/dL (31.5-36.5); Mean Corpuscular Volume 88 fL (80-100); Mean Platelet Volume 10.4 fL (9.1-12.4); NEUTROPHILS ABSOLUTE AUTO 3.66 K/mm3 (1.96-9.15); NEUTROPHILS PERCENT AUTO 57 % (41-73); Platelet Count 368 K/mm3 (150-400); RDW Coefficient Variation 15.9 % (11.7-14.2); RDW Standard Deviation 50.4 fL (35.1-46.3); Red Blood Cell Count 3.84 M/mm3 (4.30-5.90); White Blood Cell Count 6.43 K/mm3 (4.00-11.30)
[2024-03-15 10:23] LABS: Creatinine, Blood 0.59 mg/dL (0.60-1.20); Potassium, Blood 4.9 mmol/L (3.5-5.5)
[2024-03-15 16:05] VITALS: BP 145/88
--- NOTE | 2024-03-15 18:40 | NUR ---
pt demanding pain meds, is calling names, security was called, laying in bed, right elbow is swollen and leaking, did agree to a dressing, has lots of food trash on his bedside table, and around him. has been cleared. call light in reach.
--- NOTE | 2024-03-15 18:44 | NUR ---
pt has called out throughout the day, frequently requesting food from pantry, and pain meds, have medicated according to orders. no further changes this shift. call light in reach.
[2024-03-15 19:11] VITALS: BP 161/97
[2024-03-16 03:43] VITALS: BP 167/106
--- NOTE | 2024-03-16 05:39 | NUR ---
SHIFT SUMMARY PT IS ALERT AND ORIENTED TIMES 4. PT WAS ABLE TO MAKE NEEDS KNOWN. . PT HAD MULTIPLE REQUESTS FOR PAIN MEDICATION MANAGEMENT ALONG WITH FOOD AND DRINK REQUESTS. PT THANKED NURSE AFTER HE ASSISTED. APPEARED TO SLEEP ON AND OFF THROUGH THE NIGHT. BED IN LOW POSITION, CALL LIGHT WITHIN REACH, RAILS TIMES 2.
[2024-03-16 09:02] VITALS: BP 143/94
[2024-03-16] MEDS ORDERED: Miconazole Nitrate 28 GM CREAM..G. TOP SCH (11:00)
[2024-03-16] MEDS ORDERED: Menthol/Zinc Oxide Ointment 1 APPLIC/113 GM Tube TOP SCH (11:00)
--- NOTE | 2024-03-16 13:17 | NUR ---
MAD Consult received. Spoke with RN, Melody. Patient is a little confused at times. She has done well with de-escalating him today. She felt it might just cause more problems if I went in to speak to him right now. Instructed to call Security if necessary for support while performing care. I gave Melody my extension to call me if they decided they wanted someone to talk to him.
[2024-03-16 14:11] LABS: BASOPHILS PERCENT AUTO 1 % (0-2); EOSINOPHILS ABSOLUTE AUTO 0.27 K/mm3 (0.00-0.68); EOSINOPHILS PERCENT AUTO 4 % (0-6); IMMATURE GRAN ABSOLUTE AUTO 0.07 K/mm3 (0.00-0.10); IMMATURE GRAN PERCENT AUTO 1 % (0-1); LYMPHOCYTES ABSOLUTE AUTO 1.66 K/mm3 (0.84-5.20); LYMPHOCYTES PERCENT AUTO 24 % (21-46); MONOCYTES ABSOLUTE AUTO 0.93 K/mm3 (0.16-1.47); MONOCYTES PERCENT AUTO 13 % (4-13); Mean Corpuscular HGB Conc 32.3 g/dL (31.5-36.5); Mean Corpuscular Volume 87 fL (80-100); Mean Platelet Volume 9.9 fL (9.1-12.4); NEUTROPHILS ABSOLUTE AUTO 3.97 K/mm3 (1.96-9.15); NEUTROPHILS PERCENT AUTO 57 % (41-73); Platelet Count 370 K/mm3 (150-400); RDW Coefficient Variation 15.9 % (11.7-14.2); RDW Standard Deviation 50.8 fL (35.1-46.3); Red Blood Cell Count 3.57 M/mm3 (4.30-5.90)
[2024-03-16 14:29] LABS: Vancomycin, Trough 15.3 ug/mL (5.0-10.0)
[2024-03-16 14:35] LABS: C-REACTIVE PROTEIN, EXT RANGE 0.453 mg/dL (0.000-0.300)
[2024-03-16 14:37] LABS: Albumin, Blood 2.6 g/dL (3.4-5.0); Albumin/Globulin Ratio 0.5 (0.8-1.8); Bilirubin, Total 0.4 mg/dL (0.1-1.0); Bun/Creatinine Ratio 34.3 (12.0-20.0); Calcium, Blood 9.1 mg/dL (8.5-10.1); Creatinine, Blood 0.7 mg/dL (0.60-1.20); Globulin, Blood 5.1 g/dL (2.2-4.0); Potassium, Blood 4.5 mmol/L (3.5-5.5); Total Protein, Blood 7.7 g/dL (6.4-8.2)
[2024-03-16 15:02] VITALS: BP 151/97
--- NOTE | 2024-03-16 17:53 | NUR ---
SHIFT SUMMARY ANGELINE "AARTI" HAS BEEN AGITATED AND RUDE TO CARE STAFF TODAY. EARLIER TODAY, PT WAS YELLING AND SWEARING AT STAFF, DECLINING LAB DRAWS AND CARE. HE STATED THAT WE WERE HERE TO RUIN HIS DAY, WITH A LOT OF F-WORDS INVOLVED. PT IS A&o X4, WITH A CHILDLIKE UNDERSTANDING. HE WILL HAVE AN OUTBURST AT STAFF, AND THEN A FEW MINUTES LATER, CALL TO ASK IF HE IS "IN TROUBLE." THEN HE WILL BECOME IRRITATED WITH STAFF AND YELL. MANY REQUESTS FOR SNACKS. HIGH ANXIETY. HE IS ROOM AIR, IV TO LEFT FOREARM WITH ABX FOR CELLULITIS/MRSA IN RIGHT ELBOW. PMH: METH USE, FENTANYL. ABLE TO USE CALL LIGHT TO MAKE NEEDS KNOWN. INDEPENDENT WITH URINAL. THIS RN WILL MONITOR AND GIVE REPORT.
--- NOTE | 2024-03-16 18:00 | NUR ---
LATE ENTRY: EARLIER THIS MORNING, RN SPOKE WITH MAHIN Crow REGARDING MAD CONSULT. AT THE TIME THIS RN FELT THAT WRITING A CONTRACT WOULD ESCALATE THE SITUATION, AND PT'S TEMPER, AND WE WOULD TAKE THE APPROACH TO CLUSTER CARE AND MAINTAIN PROFESSIONAL BOUNDARIES. HOWEVER, THIS APPROACH DIDN'T WORK WELL AND PT CONTINUED TO BE DISRESPECTFUL, CONFRONTATIONAL AND AGITATED WITH STAFF. HE REMAINS A&O X4.
--- NOTE | 2024-03-16 18:07 | NUR ---
SUMMARY ASSUMED CARE OF PATIENT AT APPROX. 1730. PATIENT A&OX4. MEDICATED FOR PAIN ONCE SINCE TAKING OVER CARE OF PATIENT. PATIENT FRIEND BROUGHT IN FOOD FOR PATIENT. PATIENT IMPULSIVE. PATIENT TURNED OUT LIGHTS, REQUESTING TO SLEEP.
[2024-03-16 19:57] VITALS: BP 160/95
[2024-03-17 04:34] VITALS: BP 160/98
--- NOTE | 2024-03-17 06:05 | NUR ---
SHIFT SUMMARY PT IS ALERT AND ORIENTED TIMES 4. PT WAS ABLE TO MAKE NEEDS KNOWN. . PT HAD MULTIPLE REQUESTS FOR PAIN MEDICATION MANAGEMENT ALONG WITH FOOD AND DRINK REQUESTS. REPLACED PT IV CATHETER CAME OUT. IV IS FREE OF REDNESS, SWELLING, COOLNESS. IV INFUSES WELL PT APPEARED TO SLEEP ON AND OFF THROUGH THE NIGHT. BED IN LOW POSITION, CALL LIGHT WITHIN REACH, RAILS TIMES 2.
[2024-03-17 07:50] VITALS: BP 154/101
[2024-03-17 08:54] LABS: BASOPHILS ABSOLUTE AUTO 0.11 K/mm3 (0.00-0.23); BASOPHILS PERCENT AUTO 2 % (0-2); EOSINOPHILS ABSOLUTE AUTO 0.25 K/mm3 (0.00-0.68); EOSINOPHILS PERCENT AUTO 3 % (0-6); Hematocrit 31.4 % (37.0-53.0); IMMATURE GRAN PERCENT AUTO 1 % (0-1); LYMPHOCYTES ABSOLUTE AUTO 1.79 K/mm3 (0.84-5.20); LYMPHOCYTES PERCENT AUTO 25 % (21-46); MONOCYTES ABSOLUTE AUTO 0.83 K/mm3 (0.16-1.47); MONOCYTES PERCENT AUTO 11 % (4-13); Mean Corpuscular HGB 27.5 pg (26.0-34.0); Mean Corpuscular HGB Conc 31.8 g/dL (31.5-36.5); Mean Corpuscular Volume 87 fL (80-100); Mean Platelet Volume 10.4 fL (9.1-12.4); NEUTROPHILS PERCENT AUTO 58 % (41-73); Platelet Count 386 K/mm3 (150-400); RDW Coefficient Variation 15.9 % (11.7-14.2); RDW Standard Deviation 50.4 fL (35.1-46.3); Red Blood Cell Count 3.63 M/mm3 (4.30-5.90); White Blood Cell Count 7.28 K/mm3 (4.00-11.30)
[2024-03-17 09:14] LABS: Albumin, Blood 2.7 g/dL (3.4-5.0); Albumin/Globulin Ratio 0.5 (0.8-1.8); Bilirubin, Total 0.3 mg/dL (0.1-1.0); Bun/Creatinine Ratio 39.7 (12.0-20.0); Calcium, Blood 9.2 mg/dL (8.5-10.1); Creatinine, Blood 0.58 mg/dL (0.60-1.20); Potassium, Blood 4.6 mmol/L (3.5-5.5); Total Protein, Blood 7.7 g/dL (6.4-8.2)
[2024-03-17 15:35] VITALS: BP 151/96
--- NOTE | 2024-03-17 18:27 | NUR ---
SHIFT SUMMARY. PATIENT IS A&OX4. PATIENT IS ABLE TO MAKE HIS NEEDS KNOWN. PATIENTS IV REPLACED THIS SHIFT-SEE PERIPHERAL IV. PATIENT REQUESTING SNACKS SEVERAL TIMES AND HOUR T/O SHIFT-PATIENT IS RECEIVING DOUBLE PORTIONS ON HIS MEAL TRAYS. PATIENT C//O PAIN X4 MEDICATED PER OREDERS-SEE EMAR. PATIENT ANXIOUS TODAY-MEDICATED WITH ATIVAN PER ORDERS X3. PATIENT USING THE URINAL AT BEDSIDE. PATIENT HAS MEPILEX ON RIGHT ELBOW D/T DRAINAGE OF AREA WITH CELLULITUS. PATIENT IS RECEIVING IV ABX. BED IS LOCKED IN THE LOWEST POSITION WITH CALL LIGHT AND URINAL IN REACH. CARE IS ONGOING.
[2024-03-17 19:58] VITALS: BP 145/93
[2024-03-18 03:37] VITALS: BP 148/101
--- NOTE | 2024-03-18 04:03 | NUR ---
DELIVERY MANAGER SUMMARY SBP ELEVATED, OTHERWISE VSS. RECEIVING PAIN MEDS FOR PAIN AND ATIVAN FOR ANXIETY INTERMITTENTLY -SEE MAR FOR DETAILS. BEHAVIOR EASILY AGITATED, BUT NIGHT WORE ON, HE VOICED APPRECIATION FOR MEDS AND BEAN SORTER ASSIST. RECEIVING IV ANTIBIOTICS AND TOPICAL CREAMS FOR CELLULITIS OF GROIN AREA. UP AD MARIA ALEJANDRA. HAS BEEN RESTING DEEPLY EACH TIME MEDS (PAIN/ANX) GIVEN. ISOLATION PRECAUTIONS CONTINUE. CALL LIGHT IN REACH, BED IN LOW POSITION AND RAILS UP X 2 FOR SAFETY
[2024-03-18 08:31] VITALS: BP 134/78
--- NOTE | 2024-03-18 11:35 | NUR ---
THIS PATIENT LEFT PRIOR TO DISCHARGE ORDERS DESPITE THIS NURSE REMINDING PATIENT THAT HE SHOULD WAIT FOR DISCHARGE ORDERS AND INSTRUCTIONS. PT REFUSED AND LEFT WHILE THIS NURSE WAS IN ANOTHER PATIENT ROOM. PT BELONGINGS GIVEN TO PATIENT FROM LOCKED STORAGE PRIOR TO HIM LEAVING PER HIS REQUEST. DR. JOE NOTIFIED AT 1326. PT SIGNED AMA FORM
== END 2024-03-18 11:31 | disposition left against medical advice (07) | DRG 872 ==
LOC: ER 15:09 → ERHOLD 20:58 → MEDS 20:58
PROVIDERS: Emergency Medicine; Family Medicine; Internal Medicine; Nurse Practitioner Acute Care; ADMIT Student in an Organized Health Care Education/Training Program
DX: A41.02 Sepsis due to Methicillin resistant Staphylococcus aureus (principal); L03.114 Cellulitis of left upper limb; E87.1 Hypo-osmolality and hyponatremia; R65.20 Severe sepsis without septic shock; B35.6 Tinea cruris; Z71.41 Alcohol abuse counseling and surveillance of alcoholic; Z66 Do not resuscitate; F10.10 Alcohol abuse, uncomplicated; F17.210 Nicotine dependence, cigarettes, uncomplicated; F15.10 Other stimulant abuse, uncomplicated; F12.10 Cannabis abuse, uncomplicated; D64.9 Anemia, unspecified; F41.9 Anxiety disorder, unspecified; Z71.6 Tobacco abuse counseling; Z98.890 Other specified postprocedural states; Z86.19 Personal history of other infectious and parasitic diseases
CPT/HCPCS: 36415; 73201; 80048; 80053; 80202; 82550; 82565; 82607; 82728; 82746; 83540; 83550; 83605; 84145; 85025; 85027; 85045; 85651; 86140; 87040; 87070; 87075; 87077; 87147; 87186; 87205; 93971; 96365-59; 99284-25; A9270; J0360; J0690; J1650; J1885; J2060; J3010; J3370; J7030; J7040; J7050; Q9967

== ENCOUNTER 2024-03-20 00:57 | Emergency (ER) | payer OTHER ==
[~2024-03-20] VITALS: Ht 177.8 cm; Wt 81.7 kg
[2024-03-20] MEDS ORDERED: Ketorolac Tromethamine 30mg Vial IV ONE (06:45)
[2024-03-20 07:04] LABS: BASOPHILS ABSOLUTE AUTO 0.13 K/mm3 (0.00-0.23); BASOPHILS PERCENT AUTO 1 % (0-2); EOSINOPHILS ABSOLUTE AUTO 0.37 K/mm3 (0.00-0.68); EOSINOPHILS PERCENT AUTO 3 % (0-6); Hematocrit 31.9 % (37.0-53.0); IMMATURE GRAN ABSOLUTE AUTO 0.07 K/mm3 (0.00-0.10); IMMATURE GRAN PERCENT AUTO 1 % (0-1); LYMPHOCYTES ABSOLUTE AUTO 1.61 K/mm3 (0.84-5.20); LYMPHOCYTES PERCENT AUTO 13 % (21-46); MONOCYTES ABSOLUTE AUTO 1.06 K/mm3 (0.16-1.47); MONOCYTES PERCENT AUTO 8 % (4-13); Mean Corpuscular HGB 27.9 pg (26.0-34.0); Mean Corpuscular HGB Conc 31.3 g/dL (31.5-36.5); Mean Corpuscular Volume 89 fL (80-100); Mean Platelet Volume 10.5 fL (9.1-12.4); NEUTROPHILS ABSOLUTE AUTO 9.55 K/mm3 (1.96-9.15); NEUTROPHILS PERCENT AUTO 75 % (41-73); Platelet Count 388 K/mm3 (150-400); RDW Coefficient Variation 16.5 % (11.7-14.2); RDW Standard Deviation 53.3 fL (35.1-46.3); Red Blood Cell Count 3.59 M/mm3 (4.30-5.90); White Blood Cell Count 12.79 K/mm3 (4.00-11.30)
[2024-03-20] MEDS ORDERED: LORazepam 2 MG/ML 1ML Injection IV ONE (07:20)
[2024-03-20 07:24] LABS: Albumin, Blood 3.1 g/dL (3.4-5.0); Albumin/Globulin Ratio 0.7 (0.8-1.8); Bilirubin, Total 0.6 mg/dL (0.1-1.0); Bun/Creatinine Ratio 53.3 (12.0-20.0); Calcium, Blood 8.9 mg/dL (8.5-10.1); Creatinine, Blood 0.54 mg/dL (0.60-1.20); Globulin, Blood 4.7 g/dL (2.2-4.0); Potassium, Blood 4.2 mmol/L (3.5-5.5); Total Protein, Blood 7.8 g/dL (6.4-8.2)
[2024-03-20] MEDS ORDERED: IBUP600 PO (09:46)
[2024-03-20 10:22] VITALS: BP 156/74
== END 2024-03-20 10:36 | disposition home or self-care (01) ==
LOC: ER 00:57
PROVIDERS: Family Medicine
DX: M70.21 Olecranon bursitis, right elbow (principal); F17.200 Nicotine dependence, unspecified, uncomplicated
CPT/HCPCS: 73080; 80053; 85025; 96374; 96375; 99284-25; J1885; J2060

== ENCOUNTER 2024-06-13 18:34 | Inpatient (IN) | payer OTHER ==
[~2024-06-13] VITALS: Ht 193 cm; Wt 86.0 kg
[~2024-06-13 18:34] MED LIST changes: +Enoxaparin 40 MG/0.4 ML SYR SC SCH
[2024-06-13] MEDS ORDERED: Morphine Sulfate 4 MG/1 ML Injection IV ONE (22:05)
[2024-06-13] MEDS ORDERED: NS 1,000 ML IV SCH (22:05)
[2024-06-13] MEDS ORDERED: Ondansetron HCl 2 MG / ML 2ML Vial IV ONE (22:05)
[2024-06-13 22:29] LABS: BASOPHILS ABSOLUTE AUTO 0.07 K/mm3 (0.00-0.23); BASOPHILS PERCENT AUTO 0 % (0-2); EOSINOPHILS ABSOLUTE AUTO 0.15 K/mm3 (0.00-0.68); EOSINOPHILS PERCENT AUTO 1 % (0-6); Hematocrit 37.8 % (37.0-53.0); Hemoglobin 12.5 g/dL (13.5-17.5); IMMATURE GRAN ABSOLUTE AUTO 0.33 K/mm3 (0.00-0.10); IMMATURE GRAN PERCENT AUTO 2 % (0-1); LYMPHOCYTES ABSOLUTE AUTO 1.93 K/mm3 (0.84-5.20); LYMPHOCYTES PERCENT AUTO 12 % (21-46); MONOCYTES ABSOLUTE AUTO 2.65 K/mm3 (0.16-1.47); MONOCYTES PERCENT AUTO 16 % (4-13); Mean Corpuscular HGB 27.5 pg (26.0-34.0); Mean Corpuscular HGB Conc 33.1 g/dL (31.5-36.5); Mean Corpuscular Volume 83 fL (80-100); Mean Platelet Volume 11.2 fL (9.1-12.4); NEUTROPHILS ABSOLUTE AUTO 11.62 K/mm3 (1.96-9.15); NEUTROPHILS PERCENT AUTO 69 % (41-73); Platelet Count 204 K/mm3 (150-400); RDW Coefficient Variation 15.6 % (11.7-14.2); RDW Standard Deviation 47.6 fL (35.1-46.3); Red Blood Cell Count 4.55 M/mm3 (4.30-5.90); White Blood Cell Count 16.75 K/mm3 (4.00-11.30)
[2024-06-13] MEDS ORDERED: Morphine Sulfate 4 MG/1 ML Injection ONE (22:33)
[2024-06-13] MEDS ORDERED: HYDROmorphone HCl/Pf 1MG SYR IV ONE ×2 (22:55→23:40)
[2024-06-13 23:07] LABS: Albumin, Blood 3.3 g/dL (3.4-5.0); Albumin/Globulin Ratio 0.8 (0.8-1.8); Bilirubin, Total 0.3 mg/dL (0.1-1.0); Bun/Creatinine Ratio 30.2 (12.0-20.0); Calcium, Blood 8.8 mg/dL (8.5-10.1); Creatinine, Blood 1.49 mg/dL (0.60-1.20); Globulin, Blood 4.4 g/dL (2.2-4.0); Potassium, Blood 4.8 mmol/L (3.5-5.5); Total Protein, Blood 7.7 g/dL (6.4-8.2)
[2024-06-14] VITALS (7 sets, daily range): BP systolic 153–175; BP diastolic 97–119
[2024-06-14] MEDS ORDERED: Acetaminophen 325 MG TABLET PO PRN (00:05)
[2024-06-14] MEDS ORDERED: FLU VACC TS2024-25(6MOS UP)/PF 45 MCG/0.5 ML SYRINGE IM ONE (00:05)
[2024-06-14] MEDS ORDERED: FentaNYL Citrate 50 MCG/ML 2 ML Injection IV PRN ×2 (00:05→05:30)
[2024-06-14] MEDS ORDERED: Ondansetron HCl 2 MG / ML 2ML Vial IV PRN (00:05)
[2024-06-14] MEDS ORDERED: NS 1,000 ML IV SCH (00:05)
[2024-06-14] MEDS ORDERED: LACT PO (00:51)
[2024-06-14] MEDS ORDERED: IBUP600 PO (00:52)
[2024-06-14] MEDS ORDERED: Prinivil10 MG PO (00:52)
[2024-06-14] MEDS ORDERED: LORazepam 1 MG Tab PO PRN ×2 (02:00→04:10)
[2024-06-14] MEDS ORDERED: HYDROmorphone HCl/Pf 1MG SYR IV PRN (02:05)
[2024-06-14] MEDS ORDERED: Pregabalin 75 MG Cap PO SCH (04:10)
[2024-06-14 05:37] LABS: Source, Urine Clean Catch
[2024-06-14 05:48] LABS: Appearance, Urine Hazy (Clear); Bilirubin, Urine Neg (Neg); Blood, Urine 5+ (Neg); Color, Urine Yellow (P-Yellow); Glucose Qualitative, Urine Neg (Neg); Ketones, Urine Neg (Neg); Leukocyte Esterase, Urine Neg (Neg); Nitrite, Urine Neg (Neg); Protein, Urine 2+ (Neg); Specific Gravity, Urine 1.015 (1.003-1.022); Urobilinogen, Urine NORM (Normal)
[2024-06-14 05:59] LABS: BASOPHILS ABSOLUTE AUTO 0.07 K/mm3 (0.00-0.23); BASOPHILS PERCENT AUTO 0 % (0-2); EOSINOPHILS ABSOLUTE AUTO 0.25 K/mm3 (0.00-0.68); EOSINOPHILS PERCENT AUTO 2 % (0-6); Hematocrit 34.5 % (37.0-53.0); Hemoglobin 11.6 g/dL (13.5-17.5); IMMATURE GRAN ABSOLUTE AUTO 0.32 K/mm3 (0.00-0.10); IMMATURE GRAN PERCENT AUTO 2 % (0-1); LYMPHOCYTES ABSOLUTE AUTO 2.27 K/mm3 (0.84-5.20); LYMPHOCYTES PERCENT AUTO 14 % (21-46); MONOCYTES ABSOLUTE AUTO 2.94 K/mm3 (0.16-1.47); MONOCYTES PERCENT AUTO 18 % (4-13); Mean Corpuscular HGB 27.9 pg (26.0-34.0); Mean Corpuscular HGB Conc 33.6 g/dL (31.5-36.5); Mean Corpuscular Volume 83 fL (80-100); NEUTROPHILS PERCENT AUTO 64 % (41-73); Platelet Count 184 K/mm3 (150-400); RDW Coefficient Variation 15.5 % (11.7-14.2); RDW Standard Deviation 47.3 fL (35.1-46.3); Red Blood Cell Count 4.16 M/mm3 (4.30-5.90); White Blood Cell Count 16.35 K/mm3 (4.00-11.30)
[2024-06-14 06:18] LABS: U Amphetamine Screen DETECTED; U Barbituate Screen Not Detected; U Benzodiazapine Screen Not Detected; U Buprenorphine Screen Not Detected; U Cannabinoids Screen DETECTED; U Cocaine Screen Not Detected; U Methadone Screen Not Detected; U Methamphetamine Screen DETECTED; U Opiates Screen DETECTED; U Oxycodone Screen Not Detected; U Phencyclidine Screen Not Detected
[2024-06-14 06:20] LABS: Bacteria Rare /hpf; Red Blood Cells, Urine 50-100 /hpf (0-2); Squamous Epithelial Cells Rare /hpf (Few); White Blood Cells, Urine 0-2 /hpf (0-5)
[2024-06-14 06:25] LABS: Albumin, Blood 3.1 g/dL (3.4-5.0); Albumin/Globulin Ratio 0.8 (0.8-1.8); Bilirubin, Total 0.5 mg/dL (0.1-1.0); Bun/Creatinine Ratio 28.4 (12.0-20.0); Calcium, Blood 8.3 mg/dL (8.5-10.1); Creatinine, Blood 1.16 mg/dL (0.60-1.20); Globulin, Blood 3.7 g/dL (2.2-4.0); Potassium, Blood 4.3 mmol/L (3.5-5.5); Total Protein, Blood 6.8 g/dL (6.4-8.2)
[2024-06-14 10:18] LABS: Phosphorus, Blood 1.8 mg/dL (2.5-4.9)
[2024-06-14] MEDS ORDERED: buprenorphine HCL 2 MG TAB.SUBL SL SCH (11:00)
--- NOTE | 2024-06-14 12:22 | NUR ---
MD CALL DR GRIMM NOTIFIED OF HIGH BLOOD PRESSURE. MD PLACING ORDERS.
[2024-06-14] MEDS ORDERED: HydrALAZINE HCl 20 MG / ML 1ML Vial IV PRN (13:35)
--- NOTE | 2024-06-14 13:42 | NUR ---
MD CALL CALL FROM TELEMETRY OF POSSIBLE ST ELEVATION AND RECOMMENDATION FOR ECG. DR FINK NOTIFIED AND ECG ORDER PLACED IN [facility].
[2024-06-14] MEDS ORDERED: Lactated Ringer's 1,000 ML IV SCH (16:00)
--- NOTE | 2024-06-14 17:13 | NUR ---
SHIFT SUMMARY MR KENT HAS DARK DISCOLORED SWOLLEN FEET WITH SOME OPEN WOUNDS AND A NEW BLISTER THAT FORMED ON THE RIGHT FOOT THIS AFTERNOON (PHOTOGRAPH OF NEW BLISTER IN CHART). C/O SEVERE PAIN TO HIS FEET. SUBOXONE SEEMED TO HELP AFTER INITIAL DOSE AND HE SEEMED MORE SETTLED BUT HE HAS BEEN MORE UNCOMFORTABLE THIS AFTERNOON, C/O PAIN JUST AFTER 4HRS AFTER FIRST DOSE OF SUBOXONE (SCHEDULED FOR Q8HRS). TREATED FOR ANXIETY WITH ATIVAN WHICH HELPED HIM TO SETTLE FOR ABOUT AN HOUR. HE DOES DOZE ON AND OFF INBETWEEN C/O PAIN. ON TELEMETRY, ECG DONE MARKETING RESEARCH INTERN WAS CONCERNED ABOUT POSSIBLE ST ELEVATION. ECG READ BY DR FINK. BLOOD PRESSURE ELEVATED. TREATED WITH IV HYDRALAZINE TO GET SBP UNDER 160, DBP REMAINS ELEVATED. DIFFICULT TO ASCERTAIN ORIENTATION VOICE IS SLURRED AND HE IS NOT EAGER TO ANSWER MANY QUESTIONS . SPEECH HAS BECOME CLEARER THIS AFTERNOON AND MORE WORDS ARE EASIER TO UNDERSTAND. CONVERSATION DOES NOT SEEM TO BE CONFUSED. HE IS OFTEN HUNGRY AND THIRSTY AND HAS EATEN AND DRANK WELL TODAY. VOIDED CLEAR YELLOW URINE TO URINAL. BUTTOCKS ARE RED, BLANCHABLE, REPOSITIONING FREQUENTLY IN BED. PLAN TO PUT EGGCRATE MATTRESS ON BED NEXT TIME HE GETS UP TO BSC. BED LOW, CALL LIGHT IN REACH.
[2024-06-14] MEDS ORDERED: FentaNYL Citrate 50 MCG/ML 2 ML Injection IV ONE (22:30)
[2024-06-15 06:25] LABS: BASOPHILS ABSOLUTE AUTO 0.07 K/mm3 (0.00-0.23); BASOPHILS PERCENT AUTO 0 % (0-2); EOSINOPHILS ABSOLUTE AUTO 0.06 K/mm3 (0.00-0.68); EOSINOPHILS PERCENT AUTO 0 % (0-6); Hematocrit 36.5 % (37.0-53.0); Hemoglobin 12.3 g/dL (13.5-17.5); IMMATURE GRAN ABSOLUTE AUTO 0.41 K/mm3 (0.00-0.10); IMMATURE GRAN PERCENT AUTO 2 % (0-1); LYMPHOCYTES ABSOLUTE AUTO 1.76 K/mm3 (0.84-5.20); LYMPHOCYTES PERCENT AUTO 7 % (21-46); MONOCYTES PERCENT AUTO 14 % (4-13); Mean Corpuscular HGB 28.2 pg (26.0-34.0); Mean Corpuscular HGB Conc 33.7 g/dL (31.5-36.5); Mean Corpuscular Volume 84 fL (80-100); Mean Platelet Volume 11.1 fL (9.1-12.4); NEUTROPHILS ABSOLUTE AUTO 20.68 K/mm3 (1.96-9.15); NEUTROPHILS PERCENT AUTO 78 % (41-73); Platelet Count 209 K/mm3 (150-400); RDW Coefficient Variation 15.4 % (11.7-14.2); Red Blood Cell Count 4.36 M/mm3 (4.30-5.90); White Blood Cell Count 26.58 K/mm3 (4.00-11.30)
--- NOTE | 2024-06-15 06:32 | NUR ---
SHIFT SUMMARY PATIENT HAS BEEN SLEEPING INTERMITTANTLY THROUGHOUT THE NIGHT. HE HAS HAD PERIODS OF AGGITATION AND PAIN. PRN MEDICATION USED ORDERED BY MD. FEET ARE BEGINNING TO BLISTER AND THE BLISTERS ARE BREAKING OPEN. PATIENT HAS HIS CALL LIGHT WITHIN REACH AND HIS BED ALARM IS SET. SAFETY PRECAUTIONS ARE BEING MAINTAINED.
[2024-06-15 06:51] LABS: Albumin, Blood 2.9 g/dL (3.4-5.0); Albumin/Globulin Ratio 0.7 (0.8-1.8); Bilirubin, Total 0.6 mg/dL (0.1-1.0); Bun/Creatinine Ratio 17.6 (12.0-20.0); Calcium, Blood 8.7 mg/dL (8.5-10.1); Creatinine, Blood 0.85 mg/dL (0.60-1.20); Globulin, Blood 4.2 g/dL (2.2-4.0); Phosphorus, Blood 1.9 mg/dL (2.5-4.9); Potassium, Blood 4.3 mmol/L (3.5-5.5); Total Protein, Blood 7.1 g/dL (6.4-8.2)
--- NOTE | 2024-06-15 07:50 | NUR ---
ASSUMED CARE OF PATIENT. AWAKE DURING TIME OF SHIFT-CHANGE. AGITATED AND UNABLE TO SIT STILL. MANAGER MAC REPORTS UNABLE TO OBTAIN VITAL SIGNS. BED IN LOWEST POSITION. CALL LIGHT WITHIN REACH. MED STUDENT, MIGUEL, AND DR. Steele TO BEDSIDE: REQUEST FOR WOUND CARE ORDERS FOR FEET IF WOUND OPENS UP, REQUEST FOR CIWA PROTOCOL AND NICOTINE PATCH.
[2024-06-15 08:46] VITALS: BP 146/81
[2024-06-15] MEDS ORDERED: Ibuprofen 600 MG Tab PO PRN (09:40)
--- NOTE | 2024-06-15 11:10 | NUR ---
CALL TO DR. FINK AND CIWA PROTOCOL ORDER RECEIVED. CIWA SCORE FROM THIS MORNING ~17 (JUST NOW ENTERED) AND WAS MEDICATED WITH PRN LORAZEPAM AND ROUTINE SUBOXONE AND IS NOW SLEEPING.
[2024-06-15] MEDS ORDERED: ChlordiazePOXIDE 25 MG Cap PO PRN ×2 (11:15)
[2024-06-15] MEDS ORDERED: CefTRIAXone Sodium 1,000 MG in NS 100 ML IV SCH (12:30)
--- NOTE | 2024-06-15 12:55 | NUR ---
IV ABx INITIATED. PATIENT SLEEPING. CIWA SCORE 11 WHILE SLEEPING; VISIBLE SWEAT ON FOREHEAD AND JUMPING IN HIS SLEEP.
--- NOTE | 2024-06-15 13:07 | NUR ---
DR VALDOVINOS TO PATIENT BEDSIDE TO CONSULT.
--- NOTE | 2024-06-15 13:11 | NUR ---
CALL TO DR VALDOVINOS FOR WOUND CARE ORDERS: XEROFORM AND NONADHESIVE PAD.
[2024-06-15] MEDS ORDERED: NS 250 ML IV SCH (13:35)
[2024-06-15] MEDS ORDERED: OxyCODONE HCL 5 MG TAB PO PRN (15:15)
[2024-06-15 16:24] VITALS: BP 137/77
--- NOTE | 2024-06-15 17:33 | NUR ---
PRN ATIVAN 2MG ADMINISTERED CIWA 18. BED CHANGE COMPLETED; SLEEPING SOUNDLY NOW.
--- NOTE | 2024-06-15 18:30 | NUR ---
END OF SHIFT SUMMARY: A&Ox2-4. COOPERATIVE WITH CARE BUT STRUGGLING THROUGH POSSIBLE WITHDRAWALS; SPASTIC MOVEMENTS OF UPPER EXTREMITIES, VERY AGITATED AND UNABLE TO SIT STILL WHILE AWAKE. C/O 10/10 PAIN IN BLEs. CONTINENT OF BOWEL AND BLADDER; PIVOT TO BSC FOR BM; LIMITING AMBULATION SECONDARY TO BLE WOUNDS. MEDS WHOLE WITH FLUIDS. ORDERS REQUESTED FOR WOUND CARE, NICOTINE PATCH AND CIWA PROTOCOL SECONDARY TO ADMITTANCE OF DAILY ETOH CONSUMPTION AND WITHDRAWAL Sx INCLUDING AGITATION, TACTILE DISTURBANCES. WITHDRAWL Sx Tx PRN LORAZEPAM; EFFECTIVE. XEROFORM AND NONADHESIVE PADS, COVERED c KERLIX AN STOCKING PLACED OVER FOR WOUND CARE. NEW PICTURES TAKEN AND IN CHART. PER DR VALDOVINOS AND WHEN COMPARED TO PICTURES TAKEN UPON ADMIT, PT's FEET SIGNIFICANTLY INCREASED IN EDEMA AND COLOR FROM YESTERDAY. BED IN LOWEST POSITION, CALL LIGHT WITHIN REACH, ALL NEEDS MET. REPORT TO ONCOMING NURSE.
[2024-06-15 19:47] VITALS: BP 118/71
[2024-06-15] MEDS ORDERED: Lactobacil 2-S.Thermo-Bifido 1 1 Cap PO SCH (21:00)
[2024-06-15 23:49] VITALS: BP 115/97
[2024-06-16 03:38] VITALS: BP 120/79
--- NOTE | 2024-06-16 05:23 | NUR ---
SHIFT SUMMARY PATIENT HAS RESTED COMFORTABLY TONIGHT. HE WOULD NOT ALLOW THE STOCK CLERK SELF SERVICE STORE TO DRAW HIS BLOOD THIS MORNING. THEY WILL BE BACK LATER IN THE AM. DRESSING RODRÍGUEZ WAS DONE ON HIS FEET ORDERED BY MD. CALL LIGHT IS WITHIN REACH AND BED ALARM IS SET. SAFETY PRECAUTIONS ARE BEING MAINTAINED.
[2024-06-16 06:47] LABS: Hematocrit 37.9 % (37.0-53.0); Hemoglobin 12.4 g/dL (13.5-17.5); Mean Corpuscular HGB 27.9 pg (26.0-34.0); Mean Corpuscular HGB Conc 32.7 g/dL (31.5-36.5); Mean Corpuscular Volume 85 fL (80-100); Mean Platelet Volume 10.5 fL (9.1-12.4); Platelet Count 221 K/mm3 (150-400); RDW Coefficient Variation 15.6 % (11.7-14.2); RDW Standard Deviation 48.1 fL (35.1-46.3); Red Blood Cell Count 4.45 M/mm3 (4.30-5.90); White Blood Cell Count 25.07 K/mm3 (4.00-11.30)
[2024-06-16 07:05] LABS: Bun/Creatinine Ratio 18.2 (12.0-20.0); Calcium, Blood 8.7 mg/dL (8.5-10.1); Creatinine, Blood 0.99 mg/dL (0.60-1.20); Potassium, Blood 4.7 mmol/L (3.5-5.5)
--- NOTE | 2024-06-16 07:50 | NUR ---
ASSUMPTION OF CARE: ASSUMED CARE OF PATIENT. SLEEPING DURING SHIFT CHANGE REPORT. LYING SUPINE IN BED c EYES CLOSED. BREATHING EVEN AND UNLABORED. BED IN LOWEST POSITION. CALL LIGHT WITHIN REACH. NO ACUTE NEEDS. BILATERAL FOOT BANDAGES IN PLACE.
[2024-06-16 07:55] VITALS: BP 124/91
[2024-06-16] MEDS ORDERED: Nicotine 21 MG PATCH TOP SCH ×2 (09:00)
[2024-06-16] MEDS ORDERED: Lisinopril 10 MG Tab PO SCH (09:00)
[2024-06-16] MEDS ORDERED: Thiamine HCl 100 MG Tab PO SCH (09:00)
[2024-06-16] MEDS ORDERED: Folic Acid 1 MG TAB PO SCH (09:00)
--- NOTE | 2024-06-16 09:03 | NUR ---
DR REGALADO TO BEDSIDE. ASSESSED PATIENT FEET, HEART SOUNDS AND RIGHT ENLARGED TESTICLE. THIS RN PRESENT AT TIME OF ASSESSMENT.
[2024-06-16 12:00] VITALS: BP 129/78
--- NOTE | 2024-06-16 14:01 | NUR ---
POLYDIPSIA REPORTED TO THIS RN: PT REQUESTING APPLE JUICE AND SPARKLING SODA IN LARGE QUANTITIES.
[2024-06-16] MEDS ORDERED: Sodium Phosphate Mono/Dibasic 250 MG Tab PO SCH (15:00)
[2024-06-16 15:03] VITALS: BP 115/73
--- NOTE | 2024-06-16 15:24 | NUR ---
CALL TO DR CABRERA: ORDERS TO BLADDER SCAN q6h AND STRAIGHT CATH IF >300mL. IF NEED TO STRAIGHT CATH >3x, OKAY TO INSERT GUILLERMO.
--- NOTE | 2024-06-16 19:35 | NUR ---
END OF SHIFT SUMMARY: A&Ox4. NOW USING CALL LIGHT FOR ASSISTANCE WELL CALLING OUT INTO THE HALLWAY. URINARY RETENTION NOTED TODAY; BLADDER SCAN YIELDED >650mL AND ORDER OBTAINED FOR STRAIGHT CATH. PATIENT REFUSED CATH AND WAS ABLE TO VOID 550mL. NO BM. POLYDIPSIA AND POLYPHAGIA NOTED, REQUESTING MULTIPLE SNACKS WHEN AWAKE. MEDS WHOLE c FLUIDS. ROUTINE PAIN MEDICATIONS PROVIDED. LARGE RIGHT TESTICULAR HERNIA NOTED. DR VALDOVINOS TO BEDSIDE FOR FOLLOW-UP CONSULT. DISCUSSED "WAIT AND SEE" WITH THIS SEVERITY OF FROSTBITE. WOUND CARE DONE TO BLEs. MORE SLOUGHING AND BLISTERING NOTED WITH INCREASED SERSANGUINEOUS DRAINAGE. MED STUDENT, MIGUEL, PERFORMED EKG AFTER NOTATING ST-ELEVATION OVERNIGHT ON TELE. NO ACUTE CONCERNS. LABS SCHEDULED FOR TOMORROW MORNING. BED IN LOWEST POSITION, CALL LIGHT WITHIN REACH, ALL NEEDS MET. REPORT TO ONCOMING NURSE.
[2024-06-17 05:00] VITALS: BP 108/77
[2024-06-17] MEDS ORDERED: HYDROmorphone HCl/Pf 1MG SYR IV PRN (05:45)
--- NOTE | 2024-06-17 06:46 | NUR ---
WOUND CARE COMPLETED AT O600 THIS SHIFT. ORDER WAS OBTAINED FROM HOSPITALIST FOR PRE WOUND CHANGE MEDS. PT TOLERATED WELL AND WAS THANKFUL TO STAFF. FULL BED CHANGE DONE THIS A.M.
--- NOTE | 2024-06-17 07:31 | NUR ---
ASSUMED CARE OF PATIENT. SLEEPING DURING TIME OF SHIFT CHANGE.
[2024-06-17 07:47] VITALS: BP 96/57
[2024-06-17 09:37] LABS: Hematocrit 30.3 % (37.0-53.0); Hemoglobin 10.1 g/dL (13.5-17.5); Mean Corpuscular HGB 28.2 pg (26.0-34.0); Mean Corpuscular HGB Conc 33.3 g/dL (31.5-36.5); Mean Corpuscular Volume 85 fL (80-100); Mean Platelet Volume 10.9 fL (9.1-12.4); Platelet Count 246 K/mm3 (150-400); RDW Coefficient Variation 15.3 % (11.7-14.2); Red Blood Cell Count 3.58 M/mm3 (4.30-5.90); White Blood Cell Count 24.19 K/mm3 (4.00-11.30)
[2024-06-17 10:28] LABS: Bun/Creatinine Ratio 28.5 (12.0-20.0); Creatinine, Blood 1.23 mg/dL (0.60-1.20); Potassium, Blood 4.3 mmol/L (3.5-5.5)
[2024-06-17 11:16] VITALS: BP 114/71
[2024-06-17] MEDS ORDERED: Vancomycin HCL 2,000 MG in NS 500 ML IV ONE (12:10)
--- NOTE | 2024-06-17 14:21 | NUR ---
PATIENT SLEEPING. WOKEN DURING ATTEMPT FOR IV STICK HE HAD RECENTLY PULLED HIS OUT. BOTH ATTEMPTS OF STICKING HE JUMPED AND PULLED HIS ARM AWAY, BECOMING HIGHLY AGITATED. CIWA PERFORMED AND YIELDED SCORE OF 24. MEDICATED PRN LIBRIUM 50MG. REQUESTING LARGE AMOUNTS OF SNACKS AND DRINKS, AT THIS MOMENT.
[2024-06-17] MEDS ORDERED: CeFAZolin Sodium 2,000 MG in NS 100 ML IV SCH (16:00)
[2024-06-17 16:06] VITALS: BP 108/67
--- NOTE | 2024-06-17 18:07 | NUR ---
END OF SHIFT SUMMARY: A&Ox4 WHEN AWAKE; INTERMITTENTLY LETHARGIC T/O DAY. DOES NOT USE CALL LIGHT SYSTEM, BUT CALLS OUT MAMA! INTO THE HALLWAY. DOES HAVE SOME VERY CHILDLIKE BEHAVIORS AND DUMPED HIS URINAL ON THE GROUND THIS AFTERNOON WHEN SNACKS NOT DELIVERED IN WHAT HE DEEMED TO BE A TIMELY MANNER. INCREASED AGITATION AND ANXIETY NOTED THIS MORNING; CIWA SCORES ELEVATED. MAINTAINING MEDICATION COVERAGE c LUBRIUM AND LORAZEPAM FOR WITHDRAWAL Sx. URINAL FOR VOIDING. HAS NOT HAD BOWEL MOVEMENT SINCE ADMIT. MEDS WHOLE c FLUIDS. 02/12 PAIN IN BLEs. BEDREST D/T BLE WOUNDS. WOUND CARE DONE TODAY; DR VALDOVINOS CONTINUES c SERIAL DAILY ASSESSMENTS @ BEDSIDE. PULLED IV TODAY; NEW PLACEMENT IN RIGHT WRIST. ABx CHANGED TO VANCO AND CETRIAXONE. TELE SINUS IN . HYPONATREMIC WITH LABS. CONSTANTLY REQUESTING FOOD AND DRINKS; NOTED TO WAKE UP FROM SLEEPING, ASK FOR FOOD STATING I M STARVING! AND DRIFTS OFF BACK TO SLEEP BEFORE FINISHING SENTENCE. BED IN LOWEST POSITION, CALL LIGHT WITHIN REACH, ALL NEEDS MET. REPORT TO ONCOMING NURSE.
[2024-06-17 20:08] VITALS: BP 119/85
[2024-06-18] MEDS ORDERED: Vancomycin HCL 1,250 MG in NS 250 ML IV SCH (05:00)
[2024-06-18 05:52] VITALS: BP 113/100
--- NOTE | 2024-06-18 06:02 | NUR ---
NOTIFIED BY JUDICIAL REGISTRAR PT HAD SOME ST ELEVATION/DEPRESSION. WHEN ASSESSED PT ASYMPTOMATIC WITH NO C/O OF CP/SOB/PALPITATIONS. PT DIASTOLIC BP ELEVATED 113/100, BUT PT HAS BEEN HYPERTENSIVE SINCE ADMIT. HOSPITALIST NOTIFIED AND WILL CONTINUE TO MONITOR VIA TELEMETRY.
[2024-06-18] MEDS ORDERED: HYDROmorphone HCl/Pf 1MG SYR IV ONE (06:45)
--- NOTE | 2024-06-18 06:48 | NUR ---
SHIFT SUMMARY NOC PT A/O X 3-4. PLEASANT AND COOPERATIVE WITH CARE, BUT HIGHLY AGITATED WITH CIWA 25 AT SHIFT CHANGE. PT GIVEN ATIVAN/LIBRIUM PER CIWA PROTOCOL. WHEN REASSESSED @ 1999, CIWA 8 SCORE LIBRIUM 50 MG GIVEN. , MIDNIGHT CIWA 5. PRN CIWA 0100 8 LIBRIUM 50 MG GIVEN. PT RECEIVING IVABX PER EMAR. ON TELE SINUS RHYTHM IN 80'S. PT HAS GOOD URINE OUTPUT USING BEDSIDE URINAL. PT BLE FEET DRESSINGS CHANGED PER ORDERS AND PT PRE MEDICATED FOR ANXIETY AND PAIN. PT CURRENTLY RESTING WITH BED ALARM ON, BED IN LOWEST POSITION, AND CALL LIGHT WITHIN REACH.
[2024-06-18] MEDS ORDERED: OxyCODONE HCL 5 MG TAB PO PRN (08:15)
[2024-06-18 17:22] VITALS: BP 128/68
[2024-06-18] MEDS ORDERED: Trimethoprim/Sulfamethoxazole DS Tab PO SCH (21:00)
[2024-06-19] MEDS ORDERED: HYDROmorphone HCl 2 MG Tab PO PRN (00:10)
--- NOTE | 2024-06-19 01:42 | NUR ---
PT EDUCATED ON IMPORTANCE OF HAVING IV ACCESS FOR IV ABX AND PAIN RX, AND ALSO FOR CARDIAC MONITORING, BUT PT VEHEMENTLY REFUSES IV RESTART. PO DILAUDID 2MG BID BEFORE DRESSING CHANGES ORDERED.
--- NOTE | 2024-06-19 06:37 | NUR ---
SHIFT SUMMARY NOC PT A/O X 3-4. LABILE, BUT COOPERATIVE WITH CARE. PT STILL REFUSING IV ACCESS RESTART EVEN AFTER RECEIVING EDUCATION ON THE IMPORTANCE OF IV ABX AND PAIN RX. PT ALSO HAS RECENT HX OF ST ABNORMALITIES ON TELE AND IV ACCESS NEEDED TO BE ABLE TO MONIOR CARDIAC FUNCTION VIA TELEMETRY, BUT PT STILL REFUSES. PT CIWA 10 EARLIER AND SHIFT AND MEDICATED WITH LIBRIUM/ATIVAN WITH GOOD EFFECT. SCHEDULED BUPRENORPHRINE GIVEN WELL. BLE WOUND CARE AND DRESSING REPLACE PER ORDERS AND C/D/I. PT CONTINUES TO HAVE GOOD URINE OUTPUT. PT CURRENTLY RESTING WITH BED IN LOWEST POSITION, AND CALL LIGHT WITHIN REACH.
[2024-06-19] MEDS ORDERED: Pregabalin 75 MG Cap PO SCH (09:00)
[2024-06-19 10:26] LABS: Hematocrit 30.5 % (37.0-53.0); Mean Corpuscular HGB 27.9 pg (26.0-34.0); Mean Corpuscular HGB Conc 32.8 g/dL (31.5-36.5); Mean Corpuscular Volume 85 fL (80-100); Mean Platelet Volume 10.6 fL (9.1-12.4); Platelet Count 361 K/mm3 (150-400); RDW Coefficient Variation 15.6 % (11.7-14.2); RDW Standard Deviation 48.5 fL (35.1-46.3); Red Blood Cell Count 3.59 M/mm3 (4.30-5.90); White Blood Cell Count 15.16 K/mm3 (4.00-11.30)
[2024-06-19 11:08] LABS: Bun/Creatinine Ratio 33.7 (12.0-20.0); Calcium, Blood 8.8 mg/dL (8.5-10.1); Creatinine, Blood 0.89 mg/dL (0.60-1.20); Potassium, Blood 4.7 mmol/L (3.5-5.5)
[2024-06-19 15:39] VITALS: BP 144/121
--- NOTE | 2024-06-19 16:24 | NUR ---
NO CHANGES IN PT STATUS TODAY. PT HAD NO C/O PAIN DURING THE ENTIRE SHIFT.
[2024-06-19 19:40] VITALS: BP 142/88
--- NOTE | 2024-06-20 04:56 | NUR ---
SHIFT SUMMARY; PATIENT WAS AWAKE, IN PAIN UNTIL 0100, HAD TO GIVE 50 MG LIBRIUM WITH DILAUDID. OF THIS ENTRY, HE IS STILL SLEEPING. BOTH DRESSINGS NEED TO BE REDONE, BUT HE IS SLEEPING, HE HAS BEEN INCONT AND HEIDE. OF URINE. HE ALSO TRIED TO HAVE BM ON BEDPAN. HE HAS TAKEN ALL MEDS, HAS NOT REFUSED ANY. VERY RESTLESS IN BED. REMAINS IN CONTACT ISOLATION FOR MRSA AND HEP C POSITIVE
[2024-06-20 08:17] VITALS: BP 90/66
[2024-06-20] MEDS ORDERED: HYDROmorphone HCl 2 MG Tab PO PRN (12:25)
[2024-06-20 14:47] VITALS: BP 110/71
[2024-06-20 15:25] LABS: Hematocrit 32.1 % (37.0-53.0); Hemoglobin 10.4 g/dL (13.5-17.5); Mean Corpuscular HGB Conc 32.4 g/dL (31.5-36.5); Mean Corpuscular Volume 86 fL (80-100); Mean Platelet Volume 10.1 fL (9.1-12.4); Platelet Count 419 K/mm3 (150-400); RDW Coefficient Variation 15.8 % (11.7-14.2); RDW Standard Deviation 49.7 fL (35.1-46.3); Red Blood Cell Count 3.72 M/mm3 (4.30-5.90); White Blood Cell Count 20.76 K/mm3 (4.00-11.30)
[2024-06-20 15:42] LABS: Bun/Creatinine Ratio 33.1 (12.0-20.0); Calcium, Blood 9.2 mg/dL (8.5-10.1); Creatinine, Blood 1.24 mg/dL (0.60-1.20); Potassium, Blood 5.3 mmol/L (3.5-5.5)
--- NOTE | 2024-06-20 18:37 | NUR ---
SHIFT SUMMARY PATIENT IN BED THIS SHIFT. WOUND CARE PERFORMED PER ORDER. SKIN CONTINUES TO SLOUGH OFF IN VARIOUS AREAS, DR CABRERA MADE AWARE, OKAYED TO CONTINUE CURRENT TREATMENT. RECEIVED SEVERAL VISITORS THIS SHIFT. PATIENT STATES HE IS AGREEABLE TO GO TO PHYSICAL REHAB AT THIS TIME. CONTINUES TO EXHIBIT STRESSFUL BODY MOVEMENTS AND MUMBLED SPEECH.
[2024-06-20 19:45] VITALS: BP 82/59
[2024-06-20] MEDS ORDERED: NS 1,000 ML IV ONE (20:00)
[2024-06-20 21:55] VITALS: BP 95/63
[2024-06-21] VITALS (8 sets, daily range): BP systolic 91–113; BP diastolic 48–76
--- NOTE | 2024-06-21 04:01 | NUR ---
SHIFT SUMMARY ONSET SHIFT BP LOW AT 82/59 (MAP 56) /HR 80s, WAS AFEBRILE AND SAT IN UPPER 90s. DR BRAGA NOTIFIED AND BOLUS OF 1000ML NS ORDERED & GIVEN , BP 95/63 (MAP 79) AFTER BOLUS. AT 0115 WOUND CARE DONE TO BILATERAL FOOT WOUNDS. AREAS OF NECROTIC TISSUE ESPECIALLY TOES, SOME AREAS W/ PINK/RED TISSUE WELL PALE AREAS W/ MACERATION, TOLERATED FAIR, PRN PAIN MED GIVEN ABLE NOT OFTEN USUAL DUE TO LOW BPs, HAS BEEN DRINKING PO FLUIDS WELL AND EATING A LG AMOUNT OF FOOD THROUGHOUT THE EVENING AND NIGHT , NOT SLEEPING WELL, ANXIOUS, RESTLESS, APPEARS ATAXIC W/UNCOORDINATED GENERALIZED BODY MOVEMENTS PER BASELINE. VOIDING WNL VOLUMES IN URINAL. 0400 DR BARRERA NOTIFIED DUE TO TEMP OF 102.2, HR 104, SAT 87% UP TO 91% AFTER 02 APPLIED AT 3L/M VIA NC, PT C/O CHILLS, RR 20 AND NON LABORED ,LIPS DUSKY. IBUPROFEN AND ACETAMINOPHEN GIVEN. WILL RECHECK TEMP/VS IN 1 HOUR. PRN ANXIETY MEDICATION NOT GIVEN DUE TO LOW BP.
[2024-06-21] MEDS ORDERED: Lactated Ringer's 1,000 ML IV ONE (05:00)
[2024-06-21 06:01] LABS: BASOPHILS ABSOLUTE AUTO 0.06 K/mm3 (0.00-0.23); BASOPHILS PERCENT AUTO 1 % (0-2); EOSINOPHILS ABSOLUTE AUTO 0.13 K/mm3 (0.00-0.68); EOSINOPHILS PERCENT AUTO 1 % (0-6); Hematocrit 29.2 % (37.0-53.0); Hemoglobin 9.6 g/dL (13.5-17.5); IMMATURE GRAN ABSOLUTE AUTO 0.09 K/mm3 (0.00-0.10); IMMATURE GRAN PERCENT AUTO 1 % (0-1); LYMPHOCYTES ABSOLUTE AUTO 1.06 K/mm3 (0.84-5.20); LYMPHOCYTES PERCENT AUTO 11 % (21-46); MONOCYTES ABSOLUTE AUTO 0.99 K/mm3 (0.16-1.47); MONOCYTES PERCENT AUTO 11 % (4-13); Mean Corpuscular HGB 27.7 pg (26.0-34.0); Mean Corpuscular HGB Conc 32.9 g/dL (31.5-36.5); Mean Corpuscular Volume 84 fL (80-100); Mean Platelet Volume 10.3 fL (9.1-12.4); NEUTROPHILS ABSOLUTE AUTO 7.14 K/mm3 (1.96-9.15); NEUTROPHILS PERCENT AUTO 75 % (41-73); Platelet Count 429 K/mm3 (150-400); RDW Coefficient Variation 15.7 % (11.7-14.2); RDW Standard Deviation 47.3 fL (35.1-46.3); Red Blood Cell Count 3.47 M/mm3 (4.30-5.90); White Blood Cell Count 9.47 K/mm3 (4.00-11.30)
[2024-06-21 06:39] LABS: Influenza A, PCR Negative (NEGATIVE); Influenza B, PCR Negative (NEGATIVE); Resp Syncytial Virus, PCR Negative (NEGATIVE); SARS-Cov-2 (COVID-19) PCR, MMC Negative (NEGATIVE)
[2024-06-21 06:41] LABS: Albumin, Blood 2.1 g/dL (3.4-5.0); Albumin/Globulin Ratio 0.4 (0.8-1.8); Bilirubin, Total 0.2 mg/dL (0.1-1.0); Bun/Creatinine Ratio 29.1 (12.0-20.0); Calcium, Blood 8.5 mg/dL (8.5-10.1); Creatinine, Blood 1.34 mg/dL (0.60-1.20); Globulin, Blood 4.7 g/dL (2.2-4.0); Potassium, Blood 4.9 mmol/L (3.5-5.5); Total Protein, Blood 6.8 g/dL (6.4-8.2)
[2024-06-21] MEDS ORDERED: Naloxone HCl 0.4MG / ML 1ML Vial IV PRN (08:15)
[2024-06-21] MEDS ORDERED: LORazepam 1 MG Tab PO PRN (13:05)
[2024-06-21] MEDS ORDERED: LORazepam 2 MG/ML 1ML Injection IV PRN ×2 (15:15→16:50)
[2024-06-21] MEDS ORDERED: Haloperidol Lactate Inj. 5 MG/ML Injection IM PRN (15:30)
[2024-06-21] MEDS ORDERED: Haloperidol Lactate Inj. 5 MG/ML Injection IV PRN ×2 (15:50→16:50)
[2024-06-21 16:30] LABS: U Amphetamine Screen Not Detected; U Barbituate Screen Not Detected; U Benzodiazapine Screen DETECTED; U Buprenorphine Screen DETECTED; U Cannabinoids Screen DETECTED; U Cocaine Screen Not Detected; U Methadone Screen Not Detected; U Methamphetamine Screen Not Detected; U Opiates Screen DETECTED; U Oxycodone Screen DETECTED; U Phencyclidine Screen Not Detected
[2024-06-21] MEDS ORDERED: LORazepam 2 MG/ML 1ML Injection IV STA (16:36)
[2024-06-21] MEDS ORDERED: Lactated Ringer's 1,000 ML IV SCH (17:00)
[2024-06-21] MEDS ORDERED: Cefepime HCl 2,000 MG in NS 100 ML IV SCH (17:00)
[2024-06-21] MEDS ORDERED: Vancomycin HCL 2,000 MG in NS 500 ML IV SCH (18:00)
--- NOTE | 2024-06-21 18:05 | NUR ---
SHIFT SUMMARY PATIENT A/O X3-4 MOST OF SHIFT UNTIL ABOUT 1500 ANGELA. PATIENT IN BED CURLED IN POSITION SHAKING AND REPORTING FEELING "FREEZING", WARM BLANKETS GIVEN, VITALS ATTEMPTED BUT UNSUCCESSFUL BECAUSE OF THE SHAKING. PATIENT HAVING EXTREME SPASTIC MOVEMENTS, LIPS AND TOUNGUE TURNING DUSKY, OXYGEN APPLIED. PATIENT UNABLE TO FORM WORDS AT THIS TIME, JUST GRUNTING, DOLL EYES GAZE, NOT RESPONDING TO VERBAL COMMANDS. CHARGE NURSE CALLED TO ASSIST. DOCS CALLED TO ROOM TO ASSESS, OKAYED ATIVAN AND URINE TOX SCREEN TO BE COLLECTED. SECURITY CALLED TO ASSIST WITH LEAD WELDER, HAD TO APPLY BOTH WRIST TOUGH CUFF RESTRAINTS AT THIS TIME. PATIENT CONITNUES TO THRASH IN BED, SKIN TO BILATERAL FEET RUBBED OFF, BLEEDING. DOCS AWARE OF WORSENED WOUNDS. PATIENT NOT RESPONDING TO INTERVENTIONS, CONTINUES TO THRASH IN BED, NOT COHERENT. ADDITIONAL MEDS GIVEN PER JUL. IV ACCESS WAS LOST, PATIENT PULLED, MEDS WERE GIVEN IM PER DR DELGADO INSTRUCTION. VITALS WERE ABLE TO BE TAKEN, HYPOTENSIVE WITH ADEQUATE MAP, SATING WELL ON ROOM AIR AT THIS TIME PATIENT SWEATING PROFUSELY, CBG CHECKED WITH NORMAL VALUE RESULTING. IV ACCESS REGAINED. PATIENT ABLE TO VERBALIZE THIRST AND C/O PAIN. CONTINUES TO HAVE SPASTIC MOVEMENTS BUT APPEARS TO BE MORE CALM AT THIS TIME. TOX SCREEN NEG FOR NEW DRUGS. IV ABX ADMINISTERED, BOLUS ADMINISTED. BOTH FEET REMAIN UNDRESSED AT THIS TIME. WILL PASS TO NOC SHIFT AND WILL PASS TO TAKE NEW PICS FOR CHART PER DR TSANG REQUEST.
--- NOTE | 2024-06-22 05:06 | NUR ---
SHIFT SUMAMRACHEL BP REMAINS SOFT , AFEBRILE, NO DISTRESS ON ROOM AIR , SKIN WARM,DRY,DUSKY, MEDICATED FOR PAIN WITH OXYCODONE AND ACETAMINOPHEN AND WAS EFFECTIVE,XEROFORM DRESSINGS CHANGED TO BILAT FEET, WRAPPED VERY LIGHTLY WIRH KERKIX & SECURED WITH TUBULAR GAUZE -NECROTIC, RED,PINK, AND MACERATED TISSUE NOTED AND SKIN DENUDED IN AREAS FROM PT RUBBING FEET ON THE BED PREVIOUS SHIFT PER REPORT AFTER HE REMOVED HIS OWN FOOT DRESSINGS , SLIGHT ERETHEMA NOTED @PRETIBIAL AREA BILAT. BILAT WRIST RESTRAINTS UTILIZED DUE TO POOR MENTATION AND UNSAFE BEHAVIORS SUCH REMOVING HIS FOOT DRESSINGS AND DAMAGING FRAGILE TISSUE THERE. APPEARED TO HAVE RESTED WELL OVERNIGHT, ORIENTED TO SELF AND PLACE. P.O. FLUIDS OFFERED WHILE AWAKE. IV AND PO ANTIBIOTIC ONGOING,
[2024-06-22 05:45] LABS: Base Excess Venous 0.8 mmol/L; Bicarbonate Venous 24.8 mmol/L (24.0-30.0); PCO2 Venous 38.1 mmHg (38-42); pH Blood Venous 7.43 (7.34-7.37)
[2024-06-22 05:53] VITALS: BP 94/69
[2024-06-22] MEDS ORDERED: Vancomycin HCL 1,250 MG in NS 250 ML IV SCH (06:00)
[2024-06-22 06:09] LABS: BASOPHILS ABSOLUTE AUTO 0.05 K/mm3 (0.00-0.23); BASOPHILS PERCENT AUTO 0 % (0-2); EOSINOPHILS ABSOLUTE AUTO 0.07 K/mm3 (0.00-0.68); EOSINOPHILS PERCENT AUTO 1 % (0-6); Hematocrit 27.2 % (37.0-53.0); IMMATURE GRAN ABSOLUTE AUTO 0.16 K/mm3 (0.00-0.10); IMMATURE GRAN PERCENT AUTO 1 % (0-1); LYMPHOCYTES PERCENT AUTO 10 % (21-46); MONOCYTES ABSOLUTE AUTO 1.51 K/mm3 (0.16-1.47); MONOCYTES PERCENT AUTO 10 % (4-13); Mean Corpuscular HGB 27.9 pg (26.0-34.0); Mean Corpuscular HGB Conc 33.1 g/dL (31.5-36.5); Mean Corpuscular Volume 84 fL (80-100); NEUTROPHILS ABSOLUTE AUTO 11.26 K/mm3 (1.96-9.15); NEUTROPHILS PERCENT AUTO 77 % (41-73); Platelet Count 427 K/mm3 (150-400); RDW Coefficient Variation 15.9 % (11.7-14.2); RDW Standard Deviation 48.3 fL (35.1-46.3); Red Blood Cell Count 3.23 M/mm3 (4.30-5.90); White Blood Cell Count 14.55 K/mm3 (4.00-11.30)
[2024-06-22 07:05] LABS: Albumin, Blood 1.8 g/dL (3.4-5.0); Albumin/Globulin Ratio 0.4 (0.8-1.8); Bilirubin, Total 0.2 mg/dL (0.1-1.0); Bun/Creatinine Ratio 26.3 (12.0-20.0); Calcium, Blood 8.3 mg/dL (8.5-10.1); Creatinine, Blood 1.33 mg/dL (0.60-1.20); Globulin, Blood 4.9 g/dL (2.2-4.0); Potassium, Blood 4.9 mmol/L (3.5-5.5); Total Protein, Blood 6.7 g/dL (6.4-8.2)
[2024-06-22 07:07] LABS: C-REACTIVE PROTEIN, EXT RANGE 21.3 mg/dL (0.000-0.300)
[2024-06-22] MEDS ORDERED: Lactated Ringer's 1,000 ML IV SCH (08:00)
[2024-06-22 15:08] VITALS: BP 98/57
--- NOTE | 2024-06-22 19:33 | NUR ---
SHIFT SUMMARY PT CONT LEVEL OF CARE. PT NOTED TO BE A&OX4 AND CONT WITH BEDREST. PT NOTED TO HAVE DEBRIEFMENT DONE TO BILAT FEET THIS SHIFT. DSG CHANGED THIS SHIFT PER ORDERS AND NEW PICTURES TAKEN AND PLACED IN CHART. PT CONT TO STRUGGLE WITH MANAGING PAIN AND HAS BEEN MEDICATED PER EMAR. PT NOTED TO HAVE A LARGE FORMED BM THIS SHIFT. PT NOTED TO YELL OUT VS USING CALL LIGHT.
[2024-06-22 20:42] VITALS: BP 97/64
--- NOTE | 2024-06-22 23:34 | NUR ---
SCREAMING, AGITATED. ATIVAN 2 MG IV ADMINISTERED. PT CALM AND SLEEEPING AT THIS TIME. CALL LIGHT IN REACH
[2024-06-23 03:59] VITALS: BP 112/63
--- NOTE | 2024-06-23 04:11 | NUR ---
TEST PILOT SUMMARY TEMP ELEVATED, OTHERWISE VSS. INTERMITTENT AGITATION AND CALLING OUT, DEMANDING "STRAW" EVEN THOUGH HE HAD ONE IN HIS DRINK, UNABLE TO REDRECT. HAS RECEIVED ATIVAN AND HALDOL IV, AND PO DILAUDID. SEE MAR FOR DETAILS. DRESSINGS OF FEET CHANGED, SWELLING AND SOME BLEEDING NOTED. HAS BEEN RESTING QUIETLY WITH MULTIPLE INTERRUPTIONS. CURRENTLY RESTING QUIETLY. ABLE TO REPOSITION SELF IN BED WITHOUT ASSIST. CALL LIGHT IN REACH, RAILS UP X 2 AND BED IN LOW POSITION FOR SAFETY. CONTACT ISOLATION CONTINUES. WILL CONTINUE TO MONITOR.
[2024-06-23 07:23] VITALS: BP 113/98
[2024-06-23] MEDS ORDERED: OxyCODONE HCL 5 MG TAB PO ONE (07:50)
[2024-06-23 09:56] LABS: BASOPHILS ABSOLUTE AUTO 0.04 K/mm3 (0.00-0.23); BASOPHILS PERCENT AUTO 0 % (0-2); EOSINOPHILS ABSOLUTE AUTO 0.05 K/mm3 (0.00-0.68); EOSINOPHILS PERCENT AUTO 1 % (0-6); Hematocrit 25.8 % (37.0-53.0); Hemoglobin 8.5 g/dL (13.5-17.5); IMMATURE GRAN ABSOLUTE AUTO 0.13 K/mm3 (0.00-0.10); IMMATURE GRAN PERCENT AUTO 1 % (0-1); LYMPHOCYTES ABSOLUTE AUTO 2.01 K/mm3 (0.84-5.20); LYMPHOCYTES PERCENT AUTO 18 % (21-46); MONOCYTES ABSOLUTE AUTO 1.57 K/mm3 (0.16-1.47); MONOCYTES PERCENT AUTO 14 % (4-13); Mean Corpuscular HGB 27.6 pg (26.0-34.0); Mean Corpuscular HGB Conc 32.9 g/dL (31.5-36.5); Mean Corpuscular Volume 84 fL (80-100); Mean Platelet Volume 10.7 fL (9.1-12.4); NEUTROPHILS ABSOLUTE AUTO 7.16 K/mm3 (1.96-9.15); NEUTROPHILS PERCENT AUTO 65 % (41-73); Platelet Count 437 K/mm3 (150-400); RDW Coefficient Variation 15.8 % (11.7-14.2); RDW Standard Deviation 47.9 fL (35.1-46.3); Red Blood Cell Count 3.08 M/mm3 (4.30-5.90); White Blood Cell Count 10.96 K/mm3 (4.00-11.30)
[2024-06-23 10:28] LABS: Albumin, Blood 1.7 g/dL (3.4-5.0); Albumin/Globulin Ratio 0.4 (0.8-1.8); Bilirubin, Total 0.3 mg/dL (0.1-1.0); Bun/Creatinine Ratio 19.9 (12.0-20.0); Calcium, Blood 8.3 mg/dL (8.5-10.1); Creatinine, Blood 0.96 mg/dL (0.60-1.20); Globulin, Blood 4.6 g/dL (2.2-4.0); Potassium, Blood 4.5 mmol/L (3.5-5.5); Total Protein, Blood 6.3 g/dL (6.4-8.2)
[2024-06-23] MEDS ORDERED: OxyCODONE HCL 5 MG TAB PO SCH (12:00)
[2024-06-23] MEDS ORDERED: Arginine/Glutamine/Calcium Hmb 1 Packet PO SCH (14:20)
[2024-06-23] MEDS ORDERED: Multivitamins 1 Tab PO SCH (14:20)
[2024-06-23 17:34] LABS: Vancomycin, Trough 12.1 ug/mL (5.0-10.0)
--- NOTE | 2024-06-23 18:30 | NUR ---
PATIENT VERY DROWSY AND CONFUSED THIS AM, CLEARED SOME THROUGHOUT THE SHIFT. DRESSINGS TO FEET BILATERALLY CHANGED THIS AM. OXYCODONE NOW SCHEDULED AND DILAUDID GIVEN X1 FOR BREAKTHROUGH. PATIENT AGITATED AT TIMES, BUT CALMED WITH CONVERSATION. VOIDING INDEPENDENTLY USING URINAL. ABLE TO REPOSITION SELF IN BED. CALLS APPROPRIATELY FOR ASSISTANCE. NO NEW CONCERNS THIS SHIFT.
[2024-06-23 20:05] VITALS: BP 120/70
--- NOTE | 2024-06-23 22:02 | NUR ---
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 MORE CALM AND RECEPTIVE TO TREATMENT TONIGHT COMPARED WITH THAT OF LAST NIGHT. LESS SCREAMING. MORE ALERT AND CALM. PAIN MEDS MORE EFFECTIVE. IVF AND ANTIBIOTICS INFUSING ORDERED - SEE MAR FOR DETAILS. RESTING QUIETLY WITH LESS NOTED SPISODES OF RESTLESSNESS. BILAT FEET DRESSINGS CHANGED - SOME BLEEDING AND EXUDATE. 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 CALL LIGHT IN REACH, RAILS UP X 2 AND BED IN LOW POSITION FOR SAFETY. ABLE TO REPOSITION SELF IN BED FOR COMFORT. WILL CONT TO MONITOR
[2024-06-23] MEDS ORDERED: HYDROmorphone HCl/Pf 1MG SYR IV ONE (23:25)
[2024-06-24 03:32] VITALS: BP 108/72
--- NOTE | 2024-06-24 05:01 | NUR ---
REFUSED BILAT FOOT DRESSING CHANGES.
[2024-06-24 07:09] LABS: BASOPHILS ABSOLUTE AUTO 0.08 K/mm3 (0.00-0.23); BASOPHILS PERCENT AUTO 1 % (0-2); EOSINOPHILS ABSOLUTE AUTO 0.08 K/mm3 (0.00-0.68); EOSINOPHILS PERCENT AUTO 1 % (0-6); Hematocrit 29.9 % (37.0-53.0); Hemoglobin 9.6 g/dL (13.5-17.5); IMMATURE GRAN ABSOLUTE AUTO 0.21 K/mm3 (0.00-0.10); IMMATURE GRAN PERCENT AUTO 2 % (0-1); LYMPHOCYTES ABSOLUTE AUTO 2.24 K/mm3 (0.84-5.20); LYMPHOCYTES PERCENT AUTO 17 % (21-46); MONOCYTES ABSOLUTE AUTO 1.44 K/mm3 (0.16-1.47); MONOCYTES PERCENT AUTO 11 % (4-13); Mean Corpuscular HGB 27.7 pg (26.0-34.0); Mean Corpuscular HGB Conc 32.1 g/dL (31.5-36.5); Mean Corpuscular Volume 86 fL (80-100); Mean Platelet Volume 11.1 fL (9.1-12.4); NEUTROPHILS ABSOLUTE AUTO 8.84 K/mm3 (1.96-9.15); NEUTROPHILS PERCENT AUTO 69 % (41-73); Platelet Count 473 K/mm3 (150-400); RDW Coefficient Variation 15.9 % (11.7-14.2); RDW Standard Deviation 49.7 fL (35.1-46.3); Red Blood Cell Count 3.46 M/mm3 (4.30-5.90); White Blood Cell Count 12.89 K/mm3 (4.00-11.30)
[2024-06-24 07:18] LABS: Albumin, Blood 1.9 g/dL (3.4-5.0); Albumin/Globulin Ratio 0.4 (0.8-1.8); Bilirubin, Total 0.4 mg/dL (0.1-1.0); Bun/Creatinine Ratio 20.8 (12.0-20.0); Creatinine, Blood 0.82 mg/dL (0.60-1.20); Globulin, Blood 5.3 g/dL (2.2-4.0); Phosphorus, Blood 2.9 mg/dL (2.5-4.9); Potassium, Blood 4.7 mmol/L (3.5-5.5); Total Protein, Blood 7.2 g/dL (6.4-8.2)
[2024-06-24 07:29] VITALS: BP 117/70
[2024-06-24] MEDS ORDERED: HYDROmorphone HCl/Pf 1MG SYR IV PRN (09:15)
[2024-06-24 15:02] VITALS: BP 116/76
--- NOTE | 2024-06-24 18:15 | NUR ---
SHIFT SUMMARY PATIENT A/OX3, ABLE TO MAKE NEEDS KNOWN. PLEASANT AND COOPERATIVE WITH CARE. LABILE MOOD AT TIMES RELATED TO PAIN TO BILATERAL FEET. MEDICATED PER JUL. IV ABX INFUSED PER JUL. DRESSING CHANGED TO IV THIS SHIFT. TYLENOL ADMINISTERED FOR FEVER X2 THIS SHIFT. PATIENT WITH MULTIPLE VISITORS TODAY. DRESSINGS TO BILATERAL FEET CHANGED PER ORDER, PATIENT TOLERATED WELL. NO OTHER CONCERNS AT THIS TIME.
[2024-06-24 20:34] VITALS: BP 106/70
[2024-06-25 04:43] VITALS: BP 119/82
[2024-06-25] MEDS ORDERED: HYDROmorphone HCl 2 MG Tab PO PRN (05:30)
--- NOTE | 2024-06-25 06:35 | NUR ---
SHIFT SUMMARY: Pt is admitted for murray bite to both feet and is a full code. Is alert and able to make needs known. ADLs have been 1-2 depending and is on bed rest. Pain has been managed with PRN and scheduled medication. IV to right wrist was pulled by self towards the end of an antibiotic TX. when IV found to out PT started to become defensive and stated are you accusing me of pulling the IV? LN s remark when found was cool. PT stated at this point that no one likes him or wants to take care of him. LN informed him that i don t know him to like or dislike him, and i am taking care of him within the limits of my orders. when it was explained that a new IV would need to be placed he stated that it was going to hurt and he didn t want to hurt but wanted to next round out pain management. LN informed him that the next round was to be given by IV which means and iv needed to be started and meds could be brought in about 20 min at that time. He declined the IV due to pain. This was reported to the charge nurse. She had a second nurse go in and attempt and IV. they attempted 1 time and the IV blew per the report back to this LN. PT did not allow a second attempt. PT was given some APAP by that nurse as he has been refusing it from this one through shift. Refused placement of IV through rest of shift. Declined morning labs. aware. Stated it was ok to miss morning vanco run. Changed dilidad IV to 1-2 mg PO q6 PRN. refused to let this LN do dressing change to feet
[2024-06-25 07:40] VITALS: BP 133/100
[2024-06-25 09:23] LABS: Hematocrit 27.8 % (37.0-53.0); Hemoglobin 8.9 g/dL (13.5-17.5); Mean Corpuscular HGB 27.6 pg (26.0-34.0); Mean Corpuscular Volume 86 fL (80-100); Platelet Count 519 K/mm3 (150-400); RDW Coefficient Variation 15.7 % (11.7-14.2); RDW Standard Deviation 49.4 fL (35.1-46.3); Red Blood Cell Count 3.23 M/mm3 (4.30-5.90); White Blood Cell Count 13.91 K/mm3 (4.00-11.30)
[2024-06-25 09:41] LABS: Anion Gap 10 mmol/L (3-11); Blood Urea Nitrogen 16 mg/dL (8-24); Bun/Creatinine Ratio 20.8 (12.0-20.0); CO2, Blood 26 mmol/L (21-32); Calcium, Blood 9.2 mg/dL (8.5-10.1); Chloride, Blood 106 mmol/L (98-108); Creatinine, Blood 0.77 mg/dL (0.60-1.20); Glomerular Filtration Rate 110 (60-); Glucose, Blood 104 mg/dL (70-99); Potassium, Blood 4.2 mmol/L (3.5-5.5); Sodium, Blood 138 mmol/L (136-145); Vancomycin, Trough 8.2 ug/mL (5.0-10.0)
[2024-06-25] MEDS ORDERED: HYDROmorphone HCl/Pf 1MG SYR IV PRN (10:00)
[2024-06-25] MEDS ORDERED: HYDROmorphone HCl/Pf 1MG SYR IV ONE ×2 (10:00→21:40)
[2024-06-25] MEDS ORDERED: Vancomycin HCL 1,500 MG in NS 250 ML IV SCH (10:30)
[2024-06-25 16:22] VITALS: BP 129/67
[2024-06-25 19:32] VITALS: BP 104/63
[2024-06-26] MEDS ORDERED: LORazepam 2 MG/ML 1ML Injection IV ONE (00:15)
[2024-06-26 04:31] VITALS: BP 127/67
--- NOTE | 2024-06-26 06:10 | NUR ---
SHIFT SUMMARY PT ALERT AND ORIENTED TIMES 4. PT ADMITTED FOR WALDROP BITE BILATERAL FEET. DURING EARLY AND MID SHIFT PT STATED WAS IN A LOT OF PAIN AND REQUESTING PAIN MEDICATION Q2 HOURS. PT AT TIMES YELLING FOR STAFF AND CURSING. LEGAL EDITOR WAS CONTACTED FOR ADDITIONAL DILAUDID DOSE. AND ATIVAN. TOWARD 0230 PT APPEARED TO BE COMFORTABLE FOR LONGER PERIODS OF TIME. CALL LIGHT WITHIN REACH, RAILS TIMES 2, BED IN LOW POSITION.
[2024-06-26 08:00] VITALS: BP 133/73
[2024-06-26] MEDS ORDERED: Polyethylene Glycol 3350 17 gm PO PRN (09:05)
[2024-06-26 10:12] LABS: Hematocrit 29.9 % (37.0-53.0); Hemoglobin 9.6 g/dL (13.5-17.5); Mean Corpuscular HGB 27.6 pg (26.0-34.0); Mean Corpuscular HGB Conc 32.1 g/dL (31.5-36.5); Mean Corpuscular Volume 86 fL (80-100); Mean Platelet Volume 11.5 fL (9.1-12.4); Platelet Count 593 K/mm3 (150-400); RDW Coefficient Variation 15.6 % (11.7-14.2); RDW Standard Deviation 48.7 fL (35.1-46.3); Red Blood Cell Count 3.48 M/mm3 (4.30-5.90); White Blood Cell Count 14.48 K/mm3 (4.00-11.30)
[2024-06-26 10:24] LABS: Bun/Creatinine Ratio 25.4 (12.0-20.0); Calcium, Blood 9.5 mg/dL (8.5-10.1); Creatinine, Blood 0.75 mg/dL (0.60-1.20); Potassium, Blood 3.9 mmol/L (3.5-5.5)
[2024-06-26] MEDS ORDERED: HYDROmorphone HCl/Pf 1MG SYR IV PRN (10:40)
--- NOTE | 2024-06-26 10:48 | NUR ---
"Spiritual Care | Pt. and Admin. Leader request. A visit was rquested as a result of leader rounds. Pt. is awake in bed and welcomed my visit. Facilitated a life review and listened with empathy and interest. Pt. displayed evidence of being spiritually interested, but had a difficulty remembering the name of the restoration that his mom attended. Pt. was open to the possibility of a spiritual care plan that included a local celebrate recovery program. Prayed with Pt. Pt. verbalized gratitude for the spiritual care visit and weldomed this medical records clerk to return."
[2024-06-26 15:48] VITALS: BP 130/81
[2024-06-26 19:18] VITALS: BP 113/76
--- NOTE | 2024-06-26 19:20 | NUR ---
SUMMARY DRESSINGS TO BILAT FEET CHANGED. MADE AWARE PAIN REGIMEN 2MG IV Q4 HAS NOT BEEN MANAGING, PATIENT CALLING ABOUT EVERY 3 HOURS ASKING FOR ANOTHER DOSE. PATIENT IS INAPPROPRIATE WITH STAFF YELLING OUT IN PAIN/CUSSING UNTIL HE IS MEDICATED. IV DILAUDID WAS CHANGED TO Q2. HAS NOT NEEDED Q2 BUT IS NOW AVAILABLE. MIRILAX STARTED PRN BUT PATIENT HAD LARGE BM TODAY, SO DID NOT GIVE. THIS EVENING PATIENT HAD AWOKEN WAS YELLING OUT IN PAIN, SECURITY EXPERT TOLD PATIENT I WAS IN ANOTHER ROOM AND THAT I WOULD BE A MINUTE. SECURITY EXPERT UNGOWNED AND LEFT ROOM AND HAD STOPPED A MALE DOCTOR IN THE HALLWAY TO ASK HOW THEY WERE DOING AND AND THE DOCTOR LEFT THROUGH [facility] THIS MADE THE PATIENT INCREASINLGLY UPSET/DEFENSIVE/VERBALLY THREATNING THAT DOCTOR WHO WAS NO LONGER EVEN IN SIGHT. SECURITY EXPERT SAID PATIENT HAD SAT UP IN BED AND TWISTED ARM WEIRDLY AT SHOULDER. PATIENT NOW HAS RIGHT SHOULDER PAIN. IV PAIN MEDICATIONS GIVEN AND EDUCATED PATIENT TO REST RIGHT ARM ON PILLOW. REPORT GIVEN TO FLO TALLEY.
[2024-06-26] MEDS ORDERED: Vancomycin HCL 1,500 MG in NS 250 ML IV SCH (23:00)
[2024-06-27 04:15] VITALS: BP 111/61
--- NOTE | 2024-06-27 06:17 | NUR ---
SHIFT SUMMARY PT ALERT AND ORIENTED TIMES 4. PT ADMITTED FOR WALDROP BITE BILATERAL FEET. PT STATED HIS PAIN WAS MORE MANAGABLE WITH THE CHANGE OF DILAUDID ORDER FROM 2ML Q4 TO Q2 . PT APPEARED TO BE COMFORTABLE FOR LONGER PERIODS OF TIME. PT ABLE TO VERBALIZE NEEDS, USE URINAL AT BEDSIDE. CALL LIGHT WITHIN REACH, RAILS TIMES 2, BED IN LOW POSITION.
[2024-06-27 07:41] VITALS: BP 127/73
[2024-06-27] MEDS ORDERED: OxyCODONE HCL 5 MG TAB PO PRN (10:00)
[2024-06-27 12:52] LABS: Hematocrit 29.3 % (37.0-53.0); Hemoglobin 9.2 g/dL (13.5-17.5); Mean Corpuscular HGB 27.5 pg (26.0-34.0); Mean Corpuscular HGB Conc 31.4 g/dL (31.5-36.5); Mean Corpuscular Volume 88 fL (80-100); Mean Platelet Volume 11.5 fL (9.1-12.4); Platelet Count 661 K/mm3 (150-400); RDW Coefficient Variation 15.9 % (11.7-14.2); RDW Standard Deviation 50.8 fL (35.1-46.3); Red Blood Cell Count 3.35 M/mm3 (4.30-5.90); White Blood Cell Count 13.25 K/mm3 (4.00-11.30)
[2024-06-27 13:09] LABS: Bun/Creatinine Ratio 34.7 (12.0-20.0); Calcium, Blood 9.7 mg/dL (8.5-10.1); Creatinine, Blood 0.66 mg/dL (0.60-1.20); Potassium, Blood 4.1 mmol/L (3.5-5.5)
[2024-06-27] MEDS ORDERED: HYDROmorphone HCl/Pf 1MG SYR IV PRN (13:25)
[2024-06-27 15:40] VITALS: BP 122/87
[2024-06-27] MEDS ORDERED: Docusate Sodium/Senna 1 Tab PO PRN (16:25)
[2024-06-27] MEDS ORDERED: HYDROmorphone HCl/Pf 1MG SYR IV ONE (17:00)
[2024-06-27 19:34] VITALS: BP 113/72
--- NOTE | 2024-06-27 19:34 | NUR ---
SUMMARY- PT A/O X4, USES CALL LIGHT TO MAKE NEEDS KNOWN. BEDREST CURRENTLY WHILE PT UNABLETO USE FEET. FREQ CHANGES POSITION IN BED, ENC TO SHIFT WEIGHT, STAFF ASSIST WITH PILLOWS NEEDED. PT IS CONTINENT USES THE URINAL. BLE GANGRENE TO BILAT TOES AND MID FOOT INTO HEEL ON BOTH SIDES. DRESSING CHANGED 1230 AFTER PREMEDICATING WITH OXY 15 AND DILAUDID 2MG WITH DRESSING CHANGE, THIS METHOD AK STATES PAIN WAS TOLERABLE FOR DRESSING CHANGE. TOES ARE BLACK HARD ESCHAR, REDNESS, SWELLING PRESENT. RN NOTED INCREASED REDNESS AND PAIN TO RLE, PHLEBITIS NOTED TO VEIN ALONG RLE. CALL TO DR HELLER, ORDER FOR US RLE. SUSANNE CALLED AFTER PROCEDURE 191 AND NOTIFIED RN THERE IS NO DVT BUT THERE IS AN SVT PRESENT FROM BASE OF KNEE DOWN. PASSED INFO TO SOURAV ROSSI- PT HAD A LG BM CONSISTING OF ABOUT 25 LG GRAPE SIZE PELLOTS. STARTING BOWEL CARE. SPOKE WITH CASE MANAGEMENT WHO IS WORKING ON PLAN. PT AND OT ORDERED TO START MOBILITY TRAINING. REOPRTED TO FLO BENJAMIN RN
[2024-06-28 03:48] VITALS: BP 120/69
[2024-06-28] MEDS ORDERED: HYDROmorphone HCl/Pf 1MG SYR IV ONE (05:20)
--- NOTE | 2024-06-28 06:40 | NUR ---
SHIFT SUMMARY PT ALERT AND ORIENTED TIMES 4. PT ADMITTED FOR WALDROP BITE BILATERAL FEET. PT USING CALL LIGHT EVERY 30-45 MIN. PT SAYS HE IS IN PAIN MORE TONIGHT THEN PREVIOUS. PT ADJUSTED IN BED SO THAT FEET DONT HIT THE FOOT OF BED. PILLOW PLACED THERE FOR PADDING. PT REMINDED TO USE CALL LIGHT INSTEAD OF SCREAM IN ROOM. DRESSING CHANGED ON RIGHT FOOT DUE TO PT RUBBING DRESSING OFF, ONE TIME ORDER FOR DILAUDID GIVEN. FOOT IS NECROTIC ON ALL FIVE TOES, WITH THE GREAT TOE APPEARING MOST SEVERE. REDNESS AND PAIN ON RLE. CALL LIGHT WITHIN REACH, RAILS TIMES 2, BED IN LOW POSITION.
[2024-06-28 08:19] VITALS: BP 139/72
[2024-06-28 11:03] LABS: BASOPHILS ABSOLUTE AUTO 0.09 K/mm3 (0.00-0.23); BASOPHILS PERCENT AUTO 1 % (0-2); EOSINOPHILS ABSOLUTE AUTO 0.21 K/mm3 (0.00-0.68); EOSINOPHILS PERCENT AUTO 2 % (0-6); Hematocrit 28.8 % (37.0-53.0); IMMATURE GRAN ABSOLUTE AUTO 0.29 K/mm3 (0.00-0.10); IMMATURE GRAN PERCENT AUTO 3 % (0-1); LYMPHOCYTES ABSOLUTE AUTO 2.39 K/mm3 (0.84-5.20); LYMPHOCYTES PERCENT AUTO 21 % (21-46); MONOCYTES ABSOLUTE AUTO 1.51 K/mm3 (0.16-1.47); MONOCYTES PERCENT AUTO 13 % (4-13); Mean Corpuscular HGB Conc 31.3 g/dL (31.5-36.5); Mean Corpuscular Volume 87 fL (80-100); Mean Platelet Volume 10.5 fL (9.1-12.4); NEUTROPHILS ABSOLUTE AUTO 7.16 K/mm3 (1.96-9.15); NEUTROPHILS PERCENT AUTO 61 % (41-73); Platelet Count 702 K/mm3 (150-400); RDW Coefficient Variation 15.5 % (11.7-14.2); RDW Standard Deviation 48.9 fL (35.1-46.3); Red Blood Cell Count 3.33 M/mm3 (4.30-5.90); White Blood Cell Count 11.65 K/mm3 (4.00-11.30)
[2024-06-28 11:23] LABS: Bun/Creatinine Ratio 33.3 (12.0-20.0); Calcium, Blood 9.7 mg/dL (8.5-10.1); Creatinine, Blood 0.63 mg/dL (0.60-1.20); Potassium, Blood 4.2 mmol/L (3.5-5.5)
[2024-06-28 11:38] LABS: Vancomycin, Trough 13.6 ug/mL (5.0-10.0)
[2024-06-28] MEDS ORDERED: HYDROmorphone HCl/Pf 1MG SYR IV PRN (13:15)
[2024-06-28 16:11] VITALS: BP 112/65
[2024-06-28 19:43] VITALS: BP 134/74
--- NOTE | 2024-06-28 20:04 | NUR ---
SUMMARY- PT A/O X4, BEDREST CURRENTLY RELATED TO FOOT INFURY. PT SHIFTS HIS OWN WEIGHT FREQ AND USES THE URINAL IN BED. HAD 2 LG BM'S TODAY COMPRISED OF HARD PELLETS. STARTING ON STOOL SOFTNERS. DRESSING TO NECROTIC FEET CHANGED AT 1430 AFTER MEDICATING WITH RHETT, TOLERATED DRESSING CHANGE WELL, VERY TENDER ON A FEW SPOTS BUT GEN TOLERATED PROCEDURE. DRESSING HAS MIN SS DRAINAGE EVEN AFTER 24HRS (RN AND PT HELD OFF ON DRESSING CHANGE), USING XEREFORM AND ABD, RELAYED THIS TO RN IN HOPES OF HAVING DRESSING CHANGE DAILY VS BID. PHYSICAL THERAPY ORDERED, P.T. DECIDED TO EVAL PT TOMORROW ONCE SHE CLARIFIES WEIGHT BEARING STATUS. REDNESS TO LG HERNIATED SCROTUM, PT HAD BED BATH AND CLEANSED APPLIED POWDER TO GROIN ON HIS OWN. TOLERATING FOOD AND FLUIDS. REPORTED TO CESAR Burrows RN
[2024-06-28] MEDS ORDERED: Bisacodyl 5 MG TabEC PO PRN (20:40)
[2024-06-28] MEDS ORDERED: Polyethylene Glycol 3350 17 gm PO SCH (21:00)
[2024-06-28] MEDS ORDERED: QUEtiapine Fumarate 50 MG TAB PO SCH (21:00)
--- NOTE | 2024-06-28 23:35 | NUR ---
PT MOANING,, WENT TO ROOM WOULD ONLY SAY HE HURTS, THEN STARTED BECOMING BELIGERENT WHEN THIS NURSE HAD TO GO GET PAIN MEDS. CAME BACK TO ROOM NOTED GOWN WAS WET AND WHEN INVESTIGATING IV PT SNAPPPED AT ME, THREATENED TO HIT THIS NURSE, THEN WHEN I TRIED TO EXPLAIN WHAT WAS HAPPENING HE BECAME MORE AGGRESIVE. WHEN REMOVING IV HE JUST STARTED YELLING THAT I WAS HURTING HIM ON PURPOSE, EXPLAINED THAT I NEEDED TO REMOVE IV AND IT WOULD START TO FEEL BETTER. PT THRASHING AROUND IN BED WOULD NOT LET ME RESTART IV. PO PAIN MED ADMINISTERED.
--- NOTE | 2024-06-29 01:40 | NUR ---
PT AGAIN CALLED OUT, ENTERED ROOM AND HE IMMEDIATELY BECAME AGGRESSIVE, AND THREATING THIS NURSE, URINATED IN GARBAGE CAN, IN URINAL, AND WAS INCONTINENT IN BED, ATTEMPTING TO CLEAN AREA UP, AND THEN HE STATED HE WAS COLD I TOLD HIM I WOULD GET CLEAN BLANKETS IN JUST A MINUTE AND HE THEN BECAME MORE AGGRESSIVE. CALLED SECURITY WHOM DID COME UP AND SPEAK TO PT ABOUT BEHAVIOR, HE THEN APPOLOGIZED.
--- NOTE | 2024-06-29 05:08 | NUR ---
PT WITH ISSUES THIS SHIFT. SEE PREVIOUS NOTES. MEDICATED WITH PO PAIN MEDS AFTER IV FAILED. VS WNL, VOIDING INCONTINENT/CONTINENT. FEET WITH DRESSINGS INTACT FROM DAY SHIFT. PO INTAKE ABOVE AVERAGE. ON BR D/T NO REAL WEIGHT BEAR STATUS, WILL CLARIFY WITH PODIATRY TODAY. WILL ALSO CLARIFY OPTION TO DO POWER GLIDE D/T MULTIPLE IV STICKS, AND STILL ON IVABX.
[2024-06-29 07:51] VITALS: BP 118/86
[2024-06-29 08:43] LABS: BASOPHILS ABSOLUTE AUTO 0.08 K/mm3 (0.00-0.23); BASOPHILS PERCENT AUTO 1 % (0-2); EOSINOPHILS ABSOLUTE AUTO 0.21 K/mm3 (0.00-0.68); EOSINOPHILS PERCENT AUTO 2 % (0-6); Hematocrit 27.2 % (37.0-53.0); Hemoglobin 8.8 g/dL (13.5-17.5); IMMATURE GRAN ABSOLUTE AUTO 0.26 K/mm3 (0.00-0.10); IMMATURE GRAN PERCENT AUTO 2 % (0-1); LYMPHOCYTES ABSOLUTE AUTO 2.45 K/mm3 (0.84-5.20); LYMPHOCYTES PERCENT AUTO 22 % (21-46); MONOCYTES ABSOLUTE AUTO 1.58 K/mm3 (0.16-1.47); MONOCYTES PERCENT AUTO 14 % (4-13); Mean Corpuscular HGB 28.2 pg (26.0-34.0); Mean Corpuscular HGB Conc 32.4 g/dL (31.5-36.5); Mean Corpuscular Volume 87 fL (80-100); Mean Platelet Volume 10.8 fL (9.1-12.4); NEUTROPHILS ABSOLUTE AUTO 6.77 K/mm3 (1.96-9.15); NEUTROPHILS PERCENT AUTO 60 % (41-73); Platelet Count 741 K/mm3 (150-400); RDW Coefficient Variation 15.7 % (11.7-14.2); Red Blood Cell Count 3.12 M/mm3 (4.30-5.90); White Blood Cell Count 11.35 K/mm3 (4.00-11.30)
[2024-06-29 09:21] LABS: Bun/Creatinine Ratio 29.7 (12.0-20.0); Calcium, Blood 9.9 mg/dL (8.5-10.1); Creatinine, Blood 0.64 mg/dL (0.60-1.20); Potassium, Blood 4.2 mmol/L (3.5-5.5)
[2024-06-29 11:58] VITALS: BP 126/77
[2024-06-29 15:46] VITALS: BP 128/74
--- NOTE | 2024-06-29 18:27 | NUR ---
PT MOOD SOME BETTER TODAY. DID PLACE IV THIS AM AND RECEIVED PAIN MEDS AND HIS ANTIBIOTICS. DR SUTTON, PODIATRY IN TO SEE PT TODAY. STATES EXPECTS BILAT BKA. FULL DRESSING CHANGE MADE WITH ; CONSULT CALLED TO DR VAUGHN. ANS [facility] [place]. CONSULT FOR PSYCH MADE TODAY, DR STATES SEE TOMORROW. NO FURTHER CONCERNS NOTED. BED IN LOW POSITIOIN, CALL LITE IN REACH, CALLS APPROP
[2024-06-29 20:14] VITALS: BP 111/69
--- NOTE | 2024-06-30 01:10 | NUR ---
PT MOANING IN SLEEP., ADMINISTERING PAIN MED AND FLUSH IV AFTER ABX, BECAME BELLIGERENT, CUSSING, STATING I WAS TRYING TO HURT HIM ON PURPOSE. COULD NOT REDIRECT BEHAVIOR.
--- NOTE | 2024-06-30 05:36 | NUR ---
PT A&O X3-4 SLEPT BETTER THIS NIGHT WHEN COMPARED TO NIGHT OF 06/29. PAIN MEDICATED WITH DILAUDID AND OXYCODONE. PT STILL BECOMES AGITATED AT NIGHT, REFUSES DRESSING CHANGE, AND C/O PAIN WHEN USING IV EVEN WITH DILUTIION OF SUBSTANCES, AND PUSHING MEDS SLOWELY. VS WNL, VOIDS USING URINAL, UOP ABOVE AVERAGE. PLANP FOR ORTHO CONSULT WITH POTENTIAL BILAT BKA.
[2024-06-30 07:30] VITALS: BP 137/75
[2024-06-30 17:06] VITALS: BP 120/105
--- NOTE | 2024-06-30 17:10 | NUR ---
SHIFT SUMMARY PT AOX4, COOPERATIVE, ABLE TO MAKE NEEDS KNOWN. PT HAS BEEN BEDREST FOR ENTIRE SHIFT. THIS RN DID PERFORM WOUND CARE ON BILATERAL LOWER EXTREMITIES PER WOUND CARE ORDER, PT TOLERATED WELL. PT HAS BEEN NEEDING PAIN MEDICATION WHEN AVAILABLE. SURGERY SET FOR BILATERAL BKA'S 07/01/24 IN AFTERNOON. PT IS EMOTIONAL LABILE WITH IDEA OF NOT HAVING LOWER EXTREMITIES. USING URINALS APPROPRIATELY AND HAS BEEN MINIMALLY ABUSIVE WITH STAFF FOR SHIFT. BED IN LOWEST POSITION, CALL LIGHT WITHIN REACH.
[2024-06-30 19:23] VITALS: BP 131/83
[2024-07-01] VITALS (17 sets, daily range): BP systolic 105–150; BP diastolic 70–110
[2024-07-01] MEDS ORDERED: Morphine Sulfate 4 MG/1 ML Injection IV PRN (06:20)
[2024-07-01 11:18] LABS: BASOPHILS ABSOLUTE AUTO 0.12 K/mm3 (0.00-0.23); BASOPHILS PERCENT AUTO 1 % (0-2); EOSINOPHILS ABSOLUTE AUTO 0.27 K/mm3 (0.00-0.68); EOSINOPHILS PERCENT AUTO 2 % (0-6); Hematocrit 32.2 % (37.0-53.0); Hemoglobin 10.2 g/dL (13.5-17.5); IMMATURE GRAN ABSOLUTE AUTO 0.16 K/mm3 (0.00-0.10); IMMATURE GRAN PERCENT AUTO 1 % (0-1); LYMPHOCYTES PERCENT AUTO 17 % (21-46); MONOCYTES ABSOLUTE AUTO 1.39 K/mm3 (0.16-1.47); MONOCYTES PERCENT AUTO 12 % (4-13); Mean Corpuscular HGB 27.3 pg (26.0-34.0); Mean Corpuscular HGB Conc 31.7 g/dL (31.5-36.5); Mean Corpuscular Volume 86 fL (80-100); Mean Platelet Volume 10.5 fL (9.1-12.4); NEUTROPHILS ABSOLUTE AUTO 7.95 K/mm3 (1.96-9.15); NEUTROPHILS PERCENT AUTO 67 % (41-73); Platelet Count 820 K/mm3 (150-400); RDW Coefficient Variation 15.5 % (11.7-14.2); RDW Standard Deviation 49.1 fL (35.1-46.3); Red Blood Cell Count 3.74 M/mm3 (4.30-5.90); White Blood Cell Count 11.89 K/mm3 (4.00-11.30)
[2024-07-01 11:50] LABS: Alanine Aminotransfer (ALT/SGP 58 U/L (12-78); Albumin, Blood 2.1 g/dL (3.4-5.0); Albumin/Globulin Ratio 0.3 (0.8-1.8); Alk Phos 88 U/L (50-136); Anion Gap 13 mmol/L (3-11); Aspartate Aminotrans (AST/SGOT 53 U/L (12-37); Bilirubin, Total 0.3 mg/dL (0.1-1.0); Blood Urea Nitrogen 17 mg/dL (8-24); Bun/Creatinine Ratio 30.3 (12.0-20.0); CO2, Blood 28 mmol/L (21-32); Calcium, Blood 10.7 mg/dL (8.5-10.1); Chloride, Blood 107 mmol/L (98-108); Creatinine, Blood 0.56 mg/dL (0.60-1.20); Globulin, Blood 6.2 g/dL (2.2-4.0); Glomerular Filtration Rate 122 (60-); Glucose, Blood 92 mg/dL (70-99); Sodium, Blood 144 mmol/L (136-145); Total Protein, Blood 8.3 g/dL (6.4-8.2)
[2024-07-01] MEDS ORDERED: HYDROmorphone HCl 0.5 MG/0.5 ML SYR IV PRN (12:10)
[2024-07-01] MEDS ORDERED: Lactated Ringer's 1,000 ML IV SCH ×2 (12:20→13:05)
--- NOTE | 2024-07-01 13:21 | NUR ---
History, Chart, Medications and Allergies reviewed before start of procedure. Pre-Op teaching done. Pt verbalizes understanding. Patient confirms NPO status and agrees with scheduled surgery. PT LEFT ALL BELONGINGS IN MED FLOOR RM
[2024-07-01] MEDS ORDERED: propofoL 20 ML IV ONE (13:57)
[2024-07-01] MEDS ORDERED: Rocuronium Bromide 10 MG/ML 5ML Injection IV ONE ×3 (13:57→15:18)
[2024-07-01] MEDS ORDERED: Midazolam HCl 1MG / ML 2ML Vial ONE (13:58)
[2024-07-01] MEDS ORDERED: FentaNYL Citrate 50 MCG/ML 2 ML Injection ONE ×3 (15:12→16:24)
[2024-07-01] MEDS ORDERED: Ondansetron HCl 2 MG / ML 2ML Vial ONE (15:12)
[2024-07-01] MEDS ORDERED: Dexamethasone Sod Phos 10 MG/ML 1ML VIAL ONE (15:12)
[2024-07-01] MEDS ORDERED: Sugammadex Sodium 200 MG/2ML SDV (100 MG/ML) ONE (15:54)
[2024-07-01] MEDS ORDERED: Ketorolac Tromethamine 30mg Vial ONE (16:06)
--- NOTE | 2024-07-01 16:09 | NUR ---
07/01/24 1609 Marely Moncada 30MLS OF 0.5% BUPIVACAINE POURED ONTO THE STERILE FIELD. 30MLS GIVEN IN BILATERAL LEGS THROUGHOUT SURGERY.
[2024-07-01] MEDS ORDERED: HYDROmorphone HCl/Pf 1MG SYR ONE ×2 (16:15→16:33)
--- NOTE | 2024-07-01 17:37 | NUR ---
SHIFT SUMMARY PT AOX4, COOPERATOVE. ABLE TO MAKE NEEDS KNOWN. PT IS NEEDING CONSTANT PAIN MEDICATION, FACILTIY DOES NOT HAVE DILAUDID TODAY, SUBSTITUTED WITH MORPHINE IV, PT TOLERATING DECENTLY. WENT DOWN TO SURGERY 1230, RETURNED 1720, POST OP VITALS INITITATED, BREAK NURSE CONTACTED MD FOR DIET ORDER. PT IS COMPLAINING OF PAIN AFTER THIS RN GAVE 3MG MORPHINE IV AND 15 MG OXY PO. PT REQUESTED MORE MEDICATION, THIS RN INFORMED TO WAIT 30 MINS AND THEN SEE HOW PAIN IS, PT RESPONSIVE TO ANSWER. ATTEMPTED TO ASSESS LIMBS, PT REQUESTED NOT TO ASSESS LEGS DUE TO PAIN, THIS RN COMPLIED. BED IN LOWEST POSITION, CALL LIGHT WITHIN REACH.
[2024-07-01] MEDS ORDERED: Ketorolac Tromethamine 15mg Vial IV ONE (18:20)
[2024-07-02 00:15] VITALS: BP 131/80
[2024-07-02] MEDS ORDERED: Morphine Sulfate 4 MG/1 ML Injection IV PRN (00:55)
[2024-07-02] MEDS ORDERED: Methocarbamol 500 MG Tab PO ONE (02:30)
--- NOTE | 2024-07-02 02:30 | NUR ---
NEW T-ORDER RECEIVED FROM THE ON-CALL HOSPITALIST : METHCARBAMOL PO 1000MG TID. AND METHOCARBAMOL PO 1000MG ONCE. ENTERED TO [facility], SEE EMAR.
[2024-07-02 04:07] VITALS: BP 124/79
[2024-07-02 07:54] VITALS: BP 134/73
[2024-07-02] MEDS ORDERED: Enoxaparin 40 MG/0.4 ML SYR SC SCH (09:00)
[2024-07-02] MEDS ORDERED: Pregabalin 75 MG Cap PO SCH (09:00)
[2024-07-02] MEDS ORDERED: Methocarbamol 500 MG Tab PO SCH (09:00)
[2024-07-02] MEDS ORDERED: LORazepam 1 MG Tab PO PRN (09:20)
[2024-07-02 13:22] VITALS: BP 138/90
--- NOTE | 2024-07-02 15:35 | NUR ---
SHIFT SUMMARY MR KENT IS OX4, C/O PHANTOM BILATERAL FOOT PAIN, MOSTLY TO LEFT FOOT. DILAUDID IV HELPS FOR APPROX 1HR. THIS MORNING HE LOOKED VERY PAINFUL AND C/O SEVERE PAIN, MORPHINE GIVEN FOR BREATHTHROUGH PAIN WITH GOOD EFFECT AFTER DILAUDID AND OXY. HE C/O ANXIETY, GIVEN ATIVAN 1MG PO AND REPEATED WITH 1MG WHEN HE WAS HAVING A LOT MORE ANXIETY. SURGICAL DRESSINGS IN PLACE BILATERAL LEGS, DRESSINGS C,D,I. BUTTOCKS VERY RED AND MOIST, GENERAL PERSPIRATION. CLEANSED AND CREAM APPLIED. PT ENCOURAGED TO REPOSITION OFF HIS BUTTOCKS. BED LOW, CALL LIGHT IN REACH.
[2024-07-02 15:43] VITALS: BP 133/65
[2024-07-02] MEDS ORDERED: Loratadine 10 MG Tab PO SCH (18:00)
--- NOTE | 2024-07-02 18:04 | NUR ---
MD CALL RIGHT GROIN SITE AND SCROTUM INCREASED SWELLING AND REDNESS. ITCHY WHEN ASKED THOUGH PT NOT SCRATCHING THE AREA. PHOTOGRAPH TAKEN, AREA MARKED WITH PEN. DR CABRERA NOTIFIED. T.O. TO HOLD THIS EVENING'S DOSE OF VANCOMYCIN. DR CABRERA PLACED ORDER FOR ANTIHISTAMINE. (PHARMACIST NOTIFIED OF VANCO DOSE HOLD)
[2024-07-02 20:41] VITALS: BP 149/96
--- NOTE | 2024-07-03 04:08 | NUR ---
PT HAS SHOWN AGGRESSION TOWARDS STAFF DURING SHIFT. THROWING URINAL, YELLING, CALLING SEVERAL STAFF 'BITCH.' SECURITY CALLED. PT HAS CALMED DOWN.
[2024-07-03 07:24] VITALS: BP 136/73
[2024-07-03] MEDS ORDERED: CeFAZolin Sodium 2,000 MG in NS 100 ML IV SCH (08:00)
--- NOTE | 2024-07-03 10:38 | NUR ---
RECEIVED A CALL FROM DR. SOSA STATING THAT PATIENT IS NEEDING IV ACCESS IN ORDER TO GET MORE IV ANTIBIOTICS. ATTEMPT MADE TO PLACE AN IV PATIENT REFUSING. PATIENT HAS ALSO REFUSED LAB X2 TIMES. DISCUSSED WITH DR. CABRERA THAT PATIENT IS REQUESTING ORAL FORM MEDS VERSUS IV SO HE DOESN'T HAVE TO BE POKED. PER. DR. CABRERA OKAY TO NOT FURTHER ATTEMPTING IV ACCESS AND THAT THEY WILL WORK ON CHANGING PATIENT TO ORAL FORM. DISCUSSED WITH PATIENT THAT HE WILL NEED TO ALLOW LAB TO DRAW HIS LABS; THIS UPSET THE PATIENT. PATIENT REQUESTED TO REST AND TO BE LEFT ALONE; RN LEFT ROOM. PATIENT CALL LIGHT WITHIN REACH NO SIGNS OR SYMPTOMS OF DISTRESS.
[2024-07-03 12:14] LABS: BASOPHILS ABSOLUTE AUTO 0.11 K/mm3 (0.00-0.23); BASOPHILS PERCENT AUTO 1 % (0-2); EOSINOPHILS PERCENT AUTO 1 % (0-6); Hematocrit 26.6 % (37.0-53.0); Hemoglobin 8.5 g/dL (13.5-17.5); IMMATURE GRAN ABSOLUTE AUTO 0.12 K/mm3 (0.00-0.10); IMMATURE GRAN PERCENT AUTO 1 % (0-1); LYMPHOCYTES ABSOLUTE AUTO 1.94 K/mm3 (0.84-5.20); LYMPHOCYTES PERCENT AUTO 11 % (21-46); MONOCYTES ABSOLUTE AUTO 2.14 K/mm3 (0.16-1.47); MONOCYTES PERCENT AUTO 12 % (4-13); Mean Corpuscular HGB 26.8 pg (26.0-34.0); Mean Corpuscular Volume 84 fL (80-100); Mean Platelet Volume 10.5 fL (9.1-12.4); NEUTROPHILS ABSOLUTE AUTO 12.78 K/mm3 (1.96-9.15); NEUTROPHILS PERCENT AUTO 74 % (41-73); Platelet Count 638 K/mm3 (150-400); RDW Coefficient Variation 15.3 % (11.7-14.2); RDW Standard Deviation 46.3 fL (35.1-46.3); Red Blood Cell Count 3.17 M/mm3 (4.30-5.90); White Blood Cell Count 17.29 K/mm3 (4.00-11.30)
--- NOTE | 2024-07-03 12:27 | NUR ---
SPOKE WITH DR. ALBERTO; INQUIRING ABOUT FIRST WOUND CARE DRESSING CHANGE ON PATIENT'S BILATERAL BKAS. PER DR. ALBERTO OKAY TO CHANGE DRESSINGS AND ADVISED TO PLACE WOUND CARE ORDERS IN. ORDERS PLACED AND WILL ATTEMPT TO DO WOUND CARE DRESSING CHANGES IF PATIENT IS ALLOWING. ALSO NOTIFIED DR. ALBERTO THAT THE PATIENT DOESN'T HAVE IV ACCESS AND IS REFUSING AND THEREFORE NOT GETTING IV ANTIBIOTICS AND SWITCHING TO ORAL.
[2024-07-03] MEDS ORDERED: Trimethoprim/Sulfamethoxazole DS Tab PO SCH (12:54)
[2024-07-03 13:42] LABS: Albumin/Globulin Ratio 0.3 (0.8-1.8); Bilirubin, Total 0.4 mg/dL (0.1-1.0); Bun/Creatinine Ratio 30.9 (12.0-20.0); Calcium, Blood 9.1 mg/dL (8.5-10.1); Creatinine, Blood 0.55 mg/dL (0.60-1.20); Globulin, Blood 5.9 g/dL (2.2-4.0); Potassium, Blood 3.8 mmol/L (3.5-5.5); Total Protein, Blood 7.9 g/dL (6.4-8.2)
[2024-07-03 15:20] VITALS: BP 126/79
--- NOTE | 2024-07-03 16:59 | NUR ---
SHIFT SUMMARY: PATIENT HAS BEEN OVERAL PLEASANT AND COOPERATIVE WITH HIS CARE; HE DID NOT HAVE IV ACCESS THIS MORNING WHEN I CAME ON; HAS BEEN UNWILLING TO HAVE A NEW IV BEING PLACED. DISCUSSED WITH TEAM AND THE PLAN WOULD BE FOR THE PATIENT TO GET AN IV THEREFORE HE CAN CONTINUE GETTING A COUPLE MORE DAYS WORTH OF IV ANTIBIOTICS. STILL NO IV ACCESS AT THIS TIME. WOUND CARE PERFORMED ON BILATERAL BKAS. INCISIONS CLEAN AND INTACT, NO SIGNS OR SYMPTOMS OF INFECTION. PATIENT CONTINUES TO C/O PAIN AND ANXIETY REQUESTING MEDICATION OFTEN; BEING GIVEN WHEN AVAILABLE. PATIENT IN BED, CALL LIGHT WITHIN REACH, HE WILL CALL OUT, NO SIGNS OR SYMPTOMS OF DISTRESS, PLAN OF CARE ONGOING. HIS SISTER GRIS CAME INTO TODAY STATING THAT THEY ARE IN THE PROCESS OF GETTING THINGS READY IN ORDER FOR HIM TO DISCHARGE HOME WITH HER.
[2024-07-03 19:58] VITALS: BP 132/73
--- NOTE | 2024-07-04 03:13 | NUR ---
SHIFT SUMMARY PT CONTINUES TO REQUEST PAIN MEDICATIONS EVERY 30-MINUTES TO ONE HOUR INTERVALS. PT YELLING "NURSE, NURSE", CONTINUOUSLY UNTIL STAFF ABLE TO ATTEND HIS NEEDS. PT REPORTS PAIN 11/10, AND REPORTS NO HELP FROM THE MULTIPLE PAIN MEDICATIONS. PT DEFENSIVE WHEN ATTEMPTED TO EDUCATE R/T PAIN MANAGMENT. NEW IV ON LFA, IV ABX'S INFUSED ORDERED. MULTIPLE SNACKS PROVIDED. BED AT THE LOWEST POSITION, CALL LIGHT WITHIN REACH. PT IS A/O X3-4, ABLE TO MAKE HIS NEEDS KNOWN, AND IS INTERMITTENTLY COOPERATIVE WITH CARE. ARGUMENTATIVE, ANXIOUS, DEFENSIVE, ANGRY AND OVERALL LABILE.
[2024-07-04 07:47] VITALS: BP 132/82
[2024-07-04] MEDS ORDERED: Polyethylene Glycol 3350 17 gm PO PRN (08:05)
[2024-07-04 10:38] LABS: BASOPHILS ABSOLUTE AUTO 0.11 K/mm3 (0.00-0.23); BASOPHILS PERCENT AUTO 1 % (0-2); EOSINOPHILS ABSOLUTE AUTO 0.35 K/mm3 (0.00-0.68); EOSINOPHILS PERCENT AUTO 3 % (0-6); Hematocrit 23.9 % (37.0-53.0); Hemoglobin 7.7 g/dL (13.5-17.5); IMMATURE GRAN ABSOLUTE AUTO 0.13 K/mm3 (0.00-0.10); IMMATURE GRAN PERCENT AUTO 1 % (0-1); LYMPHOCYTES ABSOLUTE AUTO 2.23 K/mm3 (0.84-5.20); LYMPHOCYTES PERCENT AUTO 16 % (21-46); MONOCYTES ABSOLUTE AUTO 1.54 K/mm3 (0.16-1.47); MONOCYTES PERCENT AUTO 11 % (4-13); Mean Corpuscular HGB 27.5 pg (26.0-34.0); Mean Corpuscular HGB Conc 32.2 g/dL (31.5-36.5); Mean Corpuscular Volume 85 fL (80-100); Mean Platelet Volume 10.5 fL (9.1-12.4); NEUTROPHILS ABSOLUTE AUTO 9.62 K/mm3 (1.96-9.15); NEUTROPHILS PERCENT AUTO 69 % (41-73); Platelet Count 552 K/mm3 (150-400); RDW Coefficient Variation 15.4 % (11.7-14.2); RDW Standard Deviation 48.3 fL (35.1-46.3); White Blood Cell Count 13.98 K/mm3 (4.00-11.30)
[2024-07-04 11:00] LABS: Albumin, Blood 1.9 g/dL (3.4-5.0); Albumin/Globulin Ratio 0.3 (0.8-1.8); Bilirubin, Total 0.1 mg/dL (0.1-1.0); Bun/Creatinine Ratio 37.6 (12.0-20.0); Calcium, Blood 8.7 mg/dL (8.5-10.1); Creatinine, Blood 0.64 mg/dL (0.60-1.20); Globulin, Blood 5.8 g/dL (2.2-4.0); Potassium, Blood 4.4 mmol/L (3.5-5.5); Total Protein, Blood 7.7 g/dL (6.4-8.2)
[2024-07-04] MEDS ORDERED: ZINC OXIDE/PETROLATUM, YELLOW 1 APPLIC/71 GM PASTE TOP PRN (14:40)
[2024-07-04 15:08] VITALS: BP 121/77
--- NOTE | 2024-07-04 18:02 | NUR ---
SHIFT SUMMARY: PATIENT WAS AGRUMENTIVE THIS MORNING REGUARDING PAIN MEDICATION, BUT ONCE HE WAS SPOKEN WITH AND WAS CONTINUED ADMINISTRATION OF PAIN MEDICATION WHEN AVAILABLE. PATIENT HAS BEEN GETTING IV ANTIBIOTICS WELL SINCE IV PLACEMENT. WOUND CARE WAS PERFORMED TODAY AND ZINC WAS APPLIED TO HIS BOTTOM. HE IS IN BED, CALL LIGHT WITHIN REACH, NO SIGNS OR SYMPTOMS OF DISTRESS, PLAN OF CARE ONGOING. HE WORKED WITH PHYSICAL THERAPY TODAY.
[2024-07-04 19:28] VITALS: BP 132/58
[2024-07-05 02:28] VITALS: BP 120/73
--- NOTE | 2024-07-05 03:16 | NUR ---
SHIFT SUMMARY PT COOPERATIVE WITH CARE @HS. @MIDNIGHT C/O IV HURTING, AND REFUSED MIDNIGHT DOSE OF IV ABX'S. THIS POWER HAMMER OPERATOR OFFERED TO PUT A NEW IV, REFUSED. MEDICATED WITH PRN ATIVAN, DILAUDID AND MORPHINE ORDERED. PT REPORTS 10/10 BILATERAL BKA PAIN. SNACKS PROVIDED. NO ACUTE EVENTS DURING THIS SHIFT. BED AT THE LOWEST POSITION, CALL LIGHT W/I REACH. PT IS A/O X3-4, ABLE TO MAKE HIS NEEDS KNOWN.
[2024-07-05 08:07] VITALS: BP 136/73
[2024-07-05 09:36] LABS: BASOPHILS ABSOLUTE AUTO 0.17 K/mm3 (0.00-0.23); BASOPHILS PERCENT AUTO 1 % (0-2); EOSINOPHILS PERCENT AUTO 3 % (0-6); Hematocrit 29.2 % (37.0-53.0); Hemoglobin 9.1 g/dL (13.5-17.5); IMMATURE GRAN ABSOLUTE AUTO 0.13 K/mm3 (0.00-0.10); IMMATURE GRAN PERCENT AUTO 1 % (0-1); LYMPHOCYTES ABSOLUTE AUTO 2.29 K/mm3 (0.84-5.20); LYMPHOCYTES PERCENT AUTO 19 % (21-46); MONOCYTES ABSOLUTE AUTO 1.32 K/mm3 (0.16-1.47); MONOCYTES PERCENT AUTO 11 % (4-13); Mean Corpuscular HGB 26.8 pg (26.0-34.0); Mean Corpuscular HGB Conc 31.2 g/dL (31.5-36.5); Mean Corpuscular Volume 86 fL (80-100); Mean Platelet Volume 10.2 fL (9.1-12.4); NEUTROPHILS ABSOLUTE AUTO 7.86 K/mm3 (1.96-9.15); NEUTROPHILS PERCENT AUTO 65 % (41-73); Platelet Count 615 K/mm3 (150-400); RDW Coefficient Variation 15.5 % (11.7-14.2); RDW Standard Deviation 48.9 fL (35.1-46.3); Red Blood Cell Count 3.39 M/mm3 (4.30-5.90); White Blood Cell Count 12.07 K/mm3 (4.00-11.30)
[2024-07-05 10:04] LABS: Albumin, Blood 2.2 g/dL (3.4-5.0); Albumin/Globulin Ratio 0.3 (0.8-1.8); Bilirubin, Total 0.2 mg/dL (0.1-1.0); Bun/Creatinine Ratio 40.1 (12.0-20.0); Calcium, Blood 9.4 mg/dL (8.5-10.1); Creatinine, Blood 0.57 mg/dL (0.60-1.20); Globulin, Blood 6.3 g/dL (2.2-4.0); Potassium, Blood 4.3 mmol/L (3.5-5.5); Total Protein, Blood 8.5 g/dL (6.4-8.2)
[2024-07-05] MEDS ORDERED: Trimethoprim/Sulfamethoxazole DS Tab PO SCH (14:00)
[2024-07-05 16:55] VITALS: BP 131/96
--- NOTE | 2024-07-05 17:10 | NUR ---
pt had c/o pain throughout the day with minimal relief with prn and scheduled meds. see emar for details. pt took out piv and refused a new placement. md aware and changed medications to po.
[2024-07-05 21:49] VITALS: BP 111/64
--- NOTE | 2024-07-06 00:46 | NUR ---
NURSING NOTE: PT COMPLAINED OF 10/10 BREAKTHROUGH PAIN BETWEEN PO PAIN MEDICATION DOSES. DAY SHIFT NURSE COMMUNICATED THAT PT HAD PULLED LAST IV AND REFUSED A NEW ONE. NO IV ACCESS ORDER PUT IN BY HOSPITALIST ON DAYS. IV PAIN MEDICATION STILL ORDERED ON EMAR. PT COMPLAINED OF 10/10 BREAKTHROUGH SAYING THEY "COULDNT TAKE IT ANYMORE" AND CONSENTED VERBALLY TO NEW IV PLACEMENT. NIGHT PROVIDER CALLED AND INFORMED OF THE SITUATION, SAID IT WAS OKAY TO START NEW IV AND GIVE PAIN MEDS THAT WERE ALREADY ORDERED. NEW IV PLACED AND PT TOLERATED WELL. MEDICATED PER EMR. CONTIUNING CARE.
[2024-07-06 03:47] VITALS: BP 136/93
--- NOTE | 2024-07-06 05:21 | NUR ---
SHIFT SUMMARY: PT AOX4 AND IN A LOT OF PAIN. SEE NURSING NOTE ABOUT STARTING A NEW IV AND GIVING IV MEDICATION FOR BREAK THROUGH PAIN. PAIN COVERAGE GOING WELL WITH PO + SOME IV FOR BREAK THROUGH PAIN. PT DID WAKE UP DRENCHED IN SWEAT. DENIED FEELING FEVERISH, NAUSEA, OR ANY ANAPHYLACTIC SYMPTOMS. VSS. PT TOLERATING MEDICATIONS WELL. HIGH PO INTAKE CONSTANTLY ASKING FOR SNACKS AND DRINKS. WAS ABLE TO SLEEP IN THE LATER PARTS OF THE SHIFT. PT CALLS APPROPRIATELY AND MAKES NEEDS KNOWN. PT SLEEPING IN BED, BED IN LOWEST POSITION, CALL LIGHT IN REACH. CONTINUING CARE.
[2024-07-06 08:13] VITALS: BP 112/75
[2024-07-06] MEDS ORDERED: HYDROmorphone HCl 0.5 MG/0.5 ML SYR IV PRN (11:50)
[2024-07-06] MEDS ORDERED: ZINC OXIDE/PETROLATUM, YELLOW 1 APPLIC/71 GM PASTE TOP PRN (12:05)
[2024-07-06 12:32] LABS: BASOPHILS ABSOLUTE AUTO 0.17 K/mm3 (0.00-0.23); BASOPHILS PERCENT AUTO 2 % (0-2); EOSINOPHILS ABSOLUTE AUTO 0.31 K/mm3 (0.00-0.68); EOSINOPHILS PERCENT AUTO 3 % (0-6); Hematocrit 27.7 % (37.0-53.0); Hemoglobin 8.7 g/dL (13.5-17.5); IMMATURE GRAN ABSOLUTE AUTO 0.21 K/mm3 (0.00-0.10); IMMATURE GRAN PERCENT AUTO 2 % (0-1); LYMPHOCYTES ABSOLUTE AUTO 2.41 K/mm3 (0.84-5.20); LYMPHOCYTES PERCENT AUTO 24 % (21-46); MONOCYTES ABSOLUTE AUTO 1.16 K/mm3 (0.16-1.47); MONOCYTES PERCENT AUTO 12 % (4-13); Mean Corpuscular HGB 26.9 pg (26.0-34.0); Mean Corpuscular HGB Conc 31.4 g/dL (31.5-36.5); Mean Corpuscular Volume 86 fL (80-100); Mean Platelet Volume 10.6 fL (9.1-12.4); NEUTROPHILS ABSOLUTE AUTO 5.65 K/mm3 (1.96-9.15); NEUTROPHILS PERCENT AUTO 57 % (41-73); Platelet Count 597 K/mm3 (150-400); RDW Coefficient Variation 15.2 % (11.7-14.2); RDW Standard Deviation 48.3 fL (35.1-46.3); Red Blood Cell Count 3.23 M/mm3 (4.30-5.90); White Blood Cell Count 9.91 K/mm3 (4.00-11.30)
[2024-07-06 13:31] LABS: Bun/Creatinine Ratio 48.8 (12.0-20.0); Calcium, Blood 9.3 mg/dL (8.5-10.1); Creatinine, Blood 0.59 mg/dL (0.60-1.20); Potassium, Blood 4.2 mmol/L (3.5-5.5)
[2024-07-06 16:01] VITALS: BP 132/97
--- NOTE | 2024-07-06 17:32 | NUR ---
NO CHANGES IN PT STATUS TODAY
[2024-07-06 19:19] VITALS: BP 135/89
[2024-07-07] VITALS (7 sets, daily range): BP systolic 116–156; BP diastolic 76–106
--- NOTE | 2024-07-07 04:19 | NUR ---
SHIFT SUMMARY: PT AOX4 AND ABLE TO MAKE NEEDS KNOWN. PT IND IN BED, AND HAVING A LOT OF PAIN. MEDICATED PER EMR. HAS BEEN GETTING OXY Q4 WITH MORPHINE IN BETWEEN DOSES IV. PAIN SEEMS TO BE UNDERCONTROL AND PATIENT ABLE TO SLEEP. DURING SLEEP, PT HAS SWEAT THROUGH GOWN ON MULTIPLE OCCASIONS. DOES NOT HAVE FEVER AND DENIES FEELING FEVERISH OR SICK AT ALL. CONTIUING TO MONITOR. PT HAS GREAT PO INTAKE AND IS IN A PLEASANT MOOD AND AFFECT. PT TOLERATING MEDS WELL. PT IN BED RESTING, BED IN LOWEST POSITION, CALL LIGHT IN REACH. CONTINUING CARE.
[2024-07-07] MEDS ORDERED: Morphine Sulfate 4 MG/1 ML Injection IV PRN ×3 (09:27→16:55)
[2024-07-07] MEDS ORDERED: HYDROmorphone HCl 0.5 MG/0.5 ML SYR IV PRN ×2 (09:30→16:55)
[2024-07-07 10:26] LABS: Albumin, Blood 2.2 g/dL (3.4-5.0); Albumin/Globulin Ratio 0.4 (0.8-1.8); Bilirubin, Total 0.2 mg/dL (0.1-1.0); Bun/Creatinine Ratio 43.3 (12.0-20.0); Calcium, Blood 9.2 mg/dL (8.5-10.1); Creatinine, Blood 0.58 mg/dL (0.60-1.20); Globulin, Blood 5.8 g/dL (2.2-4.0); Potassium, Blood 4.3 mmol/L (3.5-5.5)
[2024-07-07] MEDS ORDERED: OxyCODONE HCL 5 MG TAB PO PRN (12:05)
--- NOTE | 2024-07-07 13:16 | NUR ---
ANXIETY PT ANXIOUS ABOUT PAIN MEDICATION CHANGES. PT EDUCATED ON HOW OXYCOTIN AND OXYCODONE WORK DIFFERENTLY. PT MEDICATED WITH SCHEDULED ROBOXIN AND PRN ATIVAN. PT NERVOUS ABOUT LEAVING THE HOSPITAL AND HIS SISTERS HOW NOT BEING READY FOR HIM. PT REMINDED DC IS NOT PLANNED FOR TODAY.
--- NOTE | 2024-07-07 14:02 | NUR ---
PHYSICIAN CONTACT-PAIN PT C/O PAIN THROUGHOUT SHIFT. WOUND CARE COMPLETED. PAIN INCREASED TO 9/[address] CORDERO NOTIFIED AND REQUEST FOR SOMETHING TO HELP PAIN WAS MADE. TELEPHONE ORDER FOR ONE TIME OXYCODONE 5 MG OBTAINED.
[2024-07-07] MEDS ORDERED: OxyCODONE HCL 5 MG TAB PO ONE (14:05)
[2024-07-07] MEDS ORDERED: OxyCODONE HCL 15 MG TAB.SR.12H PO SCH ×3 (14:55→21:00)
--- NOTE | 2024-07-07 14:57 | NUR ---
PHYSICIAN CONTACT-PAIN DR. BROWN NOTIFIED THAT PT PAIN HAS ESCALATED. PT HOLLERING IN PAIN AND GRIMACING IN PAIN. PT GIVEN EVERYTHING ON THE EMAR AND REQUEST FOR SOMETHING DIFFERENT FOR PAIN CONTROL. ORDERS PLACED BY .
--- NOTE | 2024-07-07 17:54 | NUR ---
SHIFT SUMMARY PT C/O UNMANAGED PAIN T/O THE DAY. DR. CORDERO NOTIFIED OF THIS IN THE AM, PLAN WAS PLACED TO ATTEMPT TO TAPER IV PAIN MEDS. PT DID NOT TOLERATE THIS WELL AND MULTIPLE CALLS WERE MADE TO IN [facility] TO HIS PAIN. DR. BROWN NOTIFIED THIS AFTERNOON WHEN PT STATED HE NEEDS MORE PAIN CONTROL OR HE IS LEAVING. MD MADE MED CHANGES AFTER THIS PHONE CALL AGAIN. PT LAST GIVEN DILADID AND STATES THIS HELPED THE MOST WITH THIS PAIN. PT WORKED WITH OCCUPATIONAL THERAPY TODAY AND GOT UP INTO A WHEELCHAIR. INCISION SITES CLEANED & BANDAGES CHANGED TODAY. NEW PHOTOS TAKEN AND PLACED ON CHART. PT ANXIOUS ABOUT PAIN MANAGMENT AND DISCHARGE. ATIVAN GIVEN ONCE PRN TODAY. NO OTHER ACUTE CHANGES IN ASSESSMENT AT THIS TIME. VS REVIEWED. CALL LIGHT IN REACH. DENIES OTHER NEEDS AT THIS TIME.
--- NOTE | 2024-07-07 23:04 | NUR ---
NURSING NOTE: PT ATTEMPTED TO LEAVE AMA. DESPITE HAVING BLE, PROVIDER NOTIFIED. AT THE SAME TIME FAMILY CAME TO VISIT AND TRIED TO CONVINCE HIM TO STAY. FAMILY UNABLE TO CONVICE AND WHILE FAMILY WAS TALKING TO THIS RN, PT HAD A FALL FROM THE BED ONTO THE FLOOR WHILE TRYING TO GET INTO HIS WHEELCHAIR. PT DENIED HITTING HIS HEAD AND A LIFT WAS USED TO PLACE HIM BACK INTO BED. VITALS BEING DONE. PT STILL ALERT AND ORIENTED AND NO NEURO DEFECITS. PROVIDER CAME TO SEE PT AND PT STATES THAT HE WANTS TO STAY IN THE HOSPITAL AT LEAST OVERNIGHT. PT WORRIED ABOUT SOME DISCHARGE PLANS. THIS RN SUSPICIOUS OF IF PRIOR VISITORS GAVE PT NARCOTICS. IMPLEMENTING SIGN IN SHEET. CHARGE AWARE. PT BACK IN BED, BED IN LOWEST POSITION, CALL LIGHT IN REACH. CONTINUING CARE.
[2024-07-08 00:03] VITALS: BP 128/90
--- NOTE | 2024-07-08 02:33 | NUR ---
AMA PT NOTED TO WANT TO LEAVE AMA EVEN AFTER THIS NURSE EDUCATED PT ON THE RISK. PHYSICIAN NOTIFIED AND PT LEFT AMA AT 0225
== END 2024-07-08 02:30 | disposition left against medical advice (07) | DRG 907 ==
LOC: ER 18:34 → MEDS 22:59 → ERHOLD 22:59 → MEDS 06-14 00:55
PROVIDERS: Emergency Medicine; Family Medicine; Orthopaedic Surgery Sports Medicine; Registered Nurse; Student in an Organized Health Care Education/Training Program; ADMIT Internal Medicine
PROC: 3E03329 Introduction of Other Anti-infective into Peripheral Vein, Percutaneous Approach (ICD-10-PCS; 2024-06-22)
PROC: 0Y6H0Z3 Detachment at Right Lower Leg, Low, Open Approach (ICD-10-PCS; 2024-07-01)
PROC: 0Y6J0Z3 Detachment at Left Lower Leg, Low, Open Approach (ICD-10-PCS; principal; 2024-07-01 13:30)
DX: T33.822A Superficial frostbite of left foot, initial encounter (principal); A41.9 Sepsis, unspecified organism; E43 Unspecified severe protein-calorie malnutrition; E87.1 Hypo-osmolality and hyponatremia; Z59.00 Homelessness unspecified; M62.82 Rhabdomyolysis; N17.9 Acute kidney failure, unspecified; I96 Gangrene, not elsewhere classified; F10.239 Alcohol dependence with withdrawal, unspecified; Z59.819 Housing instability, housed unspecified; G93.40 Encephalopathy, unspecified; I82.4Z2 Acute embolism and thrombosis of unspecified deep veins of left distal lower extremity; R44.0 Auditory hallucinations; T33.821A Superficial frostbite of right foot, initial encounter; Z96.619 Presence of unspecified artificial shoulder joint; F17.210 Nicotine dependence, cigarettes, uncomplicated; F15.10 Other stimulant abuse, uncomplicated; F12.10 Cannabis abuse, uncomplicated; F11.10 Opioid abuse, uncomplicated; L89.529 Pressure ulcer of left ankle, unspecified stage; L89.519 Pressure ulcer of right ankle, unspecified stage; M20.42 Other hammer toe(s) (acquired), left foot; M20.41 Other hammer toe(s) (acquired), right foot; M20.12 Hallux valgus (acquired), left foot; M20.11 Hallux valgus (acquired), right foot; R45.1 Restlessness and agitation; I10 Essential (primary) hypertension; E83.42 Hypomagnesemia; K40.90 Unilateral inguinal hernia, without obstruction or gangrene, not specified as recurrent; F41.9 Anxiety disorder, unspecified; E83.39 Other disorders of phosphorus metabolism; R74.01 Elevation of levels of liver transaminase levels; Z98.890 Other specified postprocedural states; Z86.14 Personal history of Methicillin resistant Staphylococcus aureus infection; Z79.1 Long term (current) use of non-steroidal anti-inflammatories (NSAID); Z28.21 Immunization not carried out because of patient refusal; Z87.19 Personal history of other diseases of the digestive system; X31.XXXA Exposure to excessive natural cold, initial encounter; Z53.21 Procedure and treatment not carried out due to patient leaving prior to being seen by health care provider
CPT/HCPCS: 0241U; 36415; 71045; 73630; 80048; 80053; 80202; 81001; 82550; 82803; 82947; 83605; 83880; 84100; 84145; 84484; 85025; 85027; 86140; 87040; 88307; 93005; 93010; 93306; 93925; 93971; 94760; 96361; 96374; 96375; 96376; 97110; 97112; 97162; 97166; 97530; 99284-25; A9270; J0360; J0690; J0692; J0696; J1100; J1171; J1630; J1650; J1885; J2060; J2250; J2270; J2405; J2704; J3010; J3370; J7030; J7040; J7050; J7120

== ENCOUNTER 2024-07-13 22:27 | Emergency (ER) | payer OTHER ==
[~2024-07-13] VITALS: Ht 152.4 cm; Wt 56.7 kg
[~2024-07-13 22:27] MED LIST changes: -Enoxaparin 40 MG/0.4 ML SYR SC SCH; +LACT PO; +Prinivil10 MG PO
[2024-07-13 22:42] VITALS: BP 126/95
[2024-07-14] MEDS ORDERED: Methocarbamol 500 MG Tab PO ONE (02:55)
[2024-07-14] MEDS ORDERED: Robaxin750 MG PO (03:01)
== END 2024-07-14 03:31 | disposition home or self-care (01) ==
LOC: ER 22:27
DX: G54.6 Phantom limb syndrome with pain (principal); Z89.512 Acquired absence of left leg below knee; Z89.511 Acquired absence of right leg below knee; Z59.89 Other problems related to housing and economic circumstances; F17.210 Nicotine dependence, cigarettes, uncomplicated; Z79.2 Long term (current) use of antibiotics; Z79.899 Other long term (current) drug therapy; Z79.1 Long term (current) use of non-steroidal anti-inflammatories (NSAID)
CPT/HCPCS: 99283; A9270

== ENCOUNTER 2024-07-16 11:16 | Emergency (ER) | payer OTHER ==
[~2024-07-16] VITALS: Ht 152.4 cm; Wt 68.0 kg
[~2024-07-16 11:16] MED LIST changes: +Robaxin750 MG PO
[2024-07-16] MEDS ORDERED: Ibuprofen 400 MG Tab PO ONE (14:05)
[2024-07-17 04:00] VITALS: BP 119/69
== END 2024-07-17 10:36 | disposition home or self-care (01) ==
LOC: ER 11:16
DX: R62.7 Adult failure to thrive (principal); F17.200 Nicotine dependence, unspecified, uncomplicated
CPT/HCPCS: 97161; 97530; 99284-25; A9270

== ENCOUNTER 2024-08-12 21:25 | Emergency (ER) | payer OTHER ==
[~2024-08-12] VITALS: Ht 172.7 cm; Wt 83.9 kg
[2024-08-12 22:23] LABS: BASOPHILS ABSOLUTE AUTO 0.14 K/mm3 (0.00-0.23); BASOPHILS PERCENT AUTO 1 % (0-2); EOSINOPHILS ABSOLUTE AUTO 0.16 K/mm3 (0.00-0.68); EOSINOPHILS PERCENT AUTO 1 % (0-6); Hematocrit 33.6 % (37.0-53.0); Hemoglobin 10.5 g/dL (13.5-17.5); IMMATURE GRAN ABSOLUTE AUTO 0.06 K/mm3 (0.00-0.10); IMMATURE GRAN PERCENT AUTO 0 % (0-1); LYMPHOCYTES ABSOLUTE AUTO 2.86 K/mm3 (0.84-5.20); LYMPHOCYTES PERCENT AUTO 21 % (21-46); MONOCYTES ABSOLUTE AUTO 1.84 K/mm3 (0.16-1.47); MONOCYTES PERCENT AUTO 14 % (4-13); Mean Corpuscular HGB 26.9 pg (26.0-34.0); Mean Corpuscular HGB Conc 31.3 g/dL (31.5-36.5); Mean Corpuscular Volume 86 fL (80-100); Mean Platelet Volume 9.9 fL (9.1-12.4); NEUTROPHILS ABSOLUTE AUTO 8.53 K/mm3 (1.96-9.15); NEUTROPHILS PERCENT AUTO 63 % (41-73); Platelet Count 371 K/mm3 (150-400); RDW Coefficient Variation 16.1 % (11.7-14.2); RDW Standard Deviation 51.2 fL (35.1-46.3); Red Blood Cell Count 3.91 M/mm3 (4.30-5.90); White Blood Cell Count 13.59 K/mm3 (4.00-11.30)
[2024-08-12 22:41] LABS: Albumin, Blood 3.7 g/dL (3.4-5.0); Albumin/Globulin Ratio 0.9 (0.8-1.8); Bilirubin, Total 0.3 mg/dL (0.1-1.0); Calcium, Blood 10.2 mg/dL (8.5-10.1); Creatinine, Blood 1.47 mg/dL (0.60-1.20); Globulin, Blood 4.1 g/dL (2.2-4.0); Potassium, Blood 5.2 mmol/L (3.5-5.5); Total Protein, Blood 7.8 g/dL (6.4-8.2)
[2024-08-13] MEDS ORDERED: FentaNYL Citrate 50 MCG/ML 2 ML Injection IV PRN (01:40)
[2024-08-13] MEDS ORDERED: NS 1,000 ML IV SCH ×2 (01:40→05:25)
[2024-08-13] MEDS ORDERED: Haloperidol Lactate Inj. 5 MG/ML Injection IV ONE (02:20)
[2024-08-13] MEDS ORDERED: LORazepam 2 MG/ML 1ML Injection IV ONE (03:25)
[2024-08-13 04:25] LABS: Ethanol (Alcohol), Blood, Med <3 mg/dL
[2024-08-13 04:32] LABS: Acetaminophen, Random <2.0 ug/mL (10.0-30.0)
[2024-08-13 08:31] LABS: Source, Urine Clean Catch
[2024-08-13 08:34] LABS: Appearance, Urine Clear (Clear); Bilirubin, Urine Neg (Neg); Blood, Urine Neg (Neg); Color, Urine Yellow (P-Yellow); Glucose Qualitative, Urine Neg (Neg); Ketones, Urine Neg (Neg); Leukocyte Esterase, Urine Neg (Neg); Nitrite, Urine Neg (Neg); Protein, Urine 1+ (Neg); Urobilinogen, Urine NORM (Normal)
[2024-08-13 09:15] LABS: U Amphetamine Screen DETECTED; U Barbituate Screen Not Detected; U Benzodiazapine Screen DETECTED; U Cocaine Screen DETECTED; U Methadone Screen Not Detected; U Methamphetamine Screen DETECTED
[2024-08-13 09:16] LABS: U Buprenorphine Screen Not Detected; U Cannabinoids Screen DETECTED; U Opiates Screen Not Detected; U Oxycodone Screen Not Detected; U Phencyclidine Screen Not Detected
[2024-08-13 13:45] VITALS: BP 154/99
== END 2024-08-13 14:44 | disposition home or self-care (01) ==
LOC: ER 21:25
PROVIDERS: Emergency Medicine; Student in an Organized Health Care Education/Training Program
DX: R41.82 Altered mental status, unspecified (principal); E86.0 Dehydration; N43.3 Hydrocele, unspecified; D72.829 Elevated white blood cell count, unspecified; F17.200 Nicotine dependence, unspecified, uncomplicated; Z59.00 Homelessness unspecified
CPT/HCPCS: 36415; 71046; 74177; 76870; 80053; 80320; 82140; 82550; 83605; 84484; 85025; 87040; 93005; 93010; 96361; 96374-59; 96375; 99285-25; G0480; J1630; J2060; J3010; J7030; Q9967

== ENCOUNTER 2024-09-21 07:50 | Emergency (ER) | payer OTHER ==
[~2024-09-21] VITALS: Ht 172.7 cm; Wt 77.1 kg
[2024-09-21 08:45] VITALS: BP 163/116
== END 2024-09-21 09:00 | disposition home or self-care (01) ==
LOC: ER 07:50
DX: F11.20 Opioid dependence, uncomplicated (principal); F17.200 Nicotine dependence, unspecified, uncomplicated; Z89.512 Acquired absence of left leg below knee; Z89.511 Acquired absence of right leg below knee
CPT/HCPCS: 99283

== ENCOUNTER 2025-01-28 16:42 | Emergency (ER) | payer OTHER ==
[~2025-01-28] VITALS: Ht 172.7 cm; Wt 81.7 kg
[2025-01-28 16:52] VITALS: BP 132/97
== END 2025-01-28 20:30 | disposition home or self-care (01) ==
LOC: ER 16:42
DX: N43.3 Hydrocele, unspecified (principal); F17.200 Nicotine dependence, unspecified, uncomplicated
CPT/HCPCS: 76870; 99284-25